=== PATIENT | female | born 1935 ===

== ENCOUNTER 2017-03-17 16:26 | Inpatient (IN) | payer MEDICAID, OTHER ==
[2017-03-17 17:23] LABS: BASO % 0.3 % (0.0-2.0); EOS # 0.2 K/uL (0.0-0.7); EOS % 2.1 % (0.0-4.0); LYMPH # 2.1 K/uL (1.0-4.3); LYMPH % 24.1 % (20.0-40.0); MEAN CELL VOLUME 77.7 fL (81.0-99.0); MEAN CORPUSCULAR HEMOGLOBIN 25.1 pg (27.0-31.0); MEAN CORPUSCULAR HGB CONC 32.3 g/dL (33.0-37.0); MONO # 0.8 K/uL (0.0-0.8); MONO % 9.4 % (0.0-10.0); NRBC % 0.1 % (0.0-2.0); RED CELL DISTRIBUTION WIDTH 14.5 % (11.5-14.5); WHITE BLOOD COUNT 8.7 K/uL (4.8-10.8)
[2017-03-17 17:30] LABS: CHLORIDE 98 mmol/L (98-107)
[2017-03-17 17:31] LABS: POTASSIUM 4.2 mmol/L (3.6-5.2); SODIUM 138 mmol/L (132-148)
[2017-03-17 17:34] LABS: ALKALINE PHOSPHATASE 77 U/L (38-126); ALT/SGPT 27 U/L (9-52); AST/SGOT 21 U/L (14-36); BILIRUBIN,TOTAL 0.5 mg/dL (0.2-1.3); BLOOD UREA NITROGEN 17 mg/dL (7-17); CARBON DIOXIDE 25 mmol/L (22-30); GFR AFRICAN-AMERICAN > 60; GLUCOSE,RANDOM 118 mg/dL (65-105); TOTAL PROTEIN 7.9 g/dL (6.3-8.3)
[2017-03-17 17:35] LABS: CALCIUM 9.1 mg/dl (8.6-10.4)
--- NOTE | 2017-03-17 17:41 | C.PDOC ---
History Of Present Illness 81 year old female presents to the ED at the request of Dr. Mendez Nick for evaluation of right leg swelling and redness . Patient states swelling to the leg began 5 months ago and has been worsening, particularly in the last 5 days. She also notes subjective fever but denies SOB, chest pain, history of blood clots, or other medical problems. PT was taking Keflex and Augmentin for cellulits and states redness has been worsening. 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 denies: Itching, Draining Recent travel outside of the [place]: No Past Medical History Reviewed: Historical Data, Nursing Documentation, Vital Signs Vital Signs: Last Vital Signs Temp 98.1 F 03/17/17 16:34 Pulse 68 03/17/17 16:34 Resp 16 03/17/17 16:34 BP 121/73 03/17/17 16:34 Pulse Ox 99 03/17/17 17:54 Family History: States: Unknown Family Hx - Social History Hx Alcohol Use: No Hx Substance Use: No Review Of Systems Constitutional: Negative for: Fever, Chills Cardiovascular: Negative for: Chest Pain Respiratory: Negative for: Shortness of Breath Gastrointestinal: Negative for: Nausea, Vomiting, Abdominal Pain, Diarrhea Musculoskeletal: Positive for: Leg Pain (swelling of the right ankle to below the knee ) Physical Exam - Physical Exam Appears: Non-toxic, No Acute Distress Skin: Warm, Dry, Other (1cm bullous to lateral aspect of right ankle ) Head: Atraumatic, Normacephalic Eye(s): bilateral: Normal Inspection, PERRL, EOMI Nose: Normal Oral Mucosa: Moist Neck: Normal ROM, Supple Chest: Symmetrical, No Deformity Cardiovascular: Rhythm Regular Respiratory: Normal Breath Sounds, No Rhonchi, No Wheezing Gastrointestinal/Abdominal: Soft, No Tenderness, No Distention, No Guarding, No Rebound Extremity: Normal ROM, Tenderness, Calf Tenderness, Swelling (and erythema of the right foot to just below the knee ), Other (Chronic venous stasis ) Pulses: Left Dorsalis Pedis: Normal, Right Dorsalis Pedis: Normal Neurological/Psych: Oriented x3, Normal Speech, Normal Cognition, Normal Motor, Normal Sensation Gait: With Assistance (using a cane due to difficulty walking of right ankle tenderness and swelling) ED Course And Treatment - Laboratory Results Result Diagrams: 03/17/17 17:15 03/17/17 17:15 O2 Sat by Pulse Oximetry: 99 (room air ) Progress Note: Case discussed with Dr Neil, agreed upon plan and admission. Disposition - Disposition Disposition: HOSPITALIZED Disposition Time: 19:04 Condition: STABLE - Clinical Impression Clinical Impression: Cellulitis, Pedal edema, Leg swelling - Scribe Statement The provider has reviewed the documentation as recorded by the Scribe Tere Madrid All medical record entries made by the Scribe were at my direction and personally dictated by me. I have reviewed the chart and agree that the record accurately reflects my personal performance of the history, physical exam, medical decision making, and the department course for this patient. I have also personally directed, reviewed, and agree with the discharge instructions and disposition.
[2017-03-17] MEDS ORDERED: Enoxaparin 60 mg Syringe SC STA (17:51)
[2017-03-17] MEDS ORDERED: Clindamycin 600mg/50ml NS 600 MG/50 ML BAG IVPB ONE (18:00)
[2017-03-17] MEDS ORDERED: Enoxaparin 80 mg Syringe ONE (18:26)
[2017-03-17 18:32] LABS: URINE BILIRUBIN NEGATIVE (NEGATIVE); URINE BLOOD 1+ (NEGATIVE); URINE COLOR Colorless (YELLOW); URINE GLUCOSE (UA) NORMAL (Normal); URINE KETONE NEGATIVE (NEGATIVE); URINE LEUKOCYTE ESTERASE NEG Leu/uL (Negative); URINE PROTEIN NEGATIVE (NEGATIVE); URINE UROBILINOGEN NORMAL mg/dL (0.2-1.0); WBC URINE < 1 /hpf (0-5)
[2017-03-17 18:47] LABS: RBC URINE 4 /hpf (0-3)
--- NOTE | 2017-03-17 21:57 | CP.PCM.HP ---
<Bebo Daugherty - Last Filed: 03/17/17 22:14> History of Present Illness - History of Present Illness History of Present Illness: PGY-[address] Lewis HPI: 81 y/o F presents to the ER with a 3 weeks history of R. leg pain for 3 week duration. Nothing makes the pain better. Walking makes the pain worse. She describes the pain as throbbing in nature. It radiates up the leg to the mid thigh. At its worst she rates the pain as a 10/10 in severity. The pain has been constant since it began. It is associated with a fever yesterday. She also states that her urine output has been more frequent lately. She denies cough, N/ V, constipation, diarrhea, cough, diaphoresis, hemoptysis, weakness, dizziness, visual changes, changes in her speech, confusion, TAVERA, CP, abdominal pain, rash or blood in her urine. She denies sick contacts. She recently took a trip to [place], [place]. Patient is visiting from [facility]. PMH: None PSH: None FH: * Mom, , no medical history * Dad, , no medical history * Siblings, DM, Varicose vv SH: denies smoking/drinking, , lives with nephew in [facility] Meds: Augmentin, Mupirocen 2% Allergies: NKA Present on Admission - Present on Admission Any Indicators Present on Admission: No History of DVT/PE: No History of Uncontrolled Diabetes: No Urinary Catheter: No Decubitus Ulcer Present: No History Surgical Site Infection Following: None Review of Systems - Constitutional Constitutional: As Per HPI - EENT Eyes: As Per HPI Ears: As Per HPI Nose/Mouth/Throat: As Per HPI - Breasts Breasts: As Per HPI - Cardiovascular Cardiovascular: As Per HPI - Respiratory Respiratory: As Per HPI - Gastrointestinal Gastrointestinal: As Per HPI - Genitourinary Genitourinary: As Per HPI - Reproductive: Female Reproductive:Female: As Per HPI - Menstruation Menstruation: As Per HPI - Musculoskeletal Musculoskeletal: As Per HPI - Integumentary Integumentary: As Per HPI - Neurological Neurological: As Per HPI - Psychiatric Psychiatric: As Per HPI - Endocrine Endocrine: As Per HPI - Hematologic/Lymphatic Hematologic: As Per HPI Past Patient History - Tetanus Immunizations Tetanus Immunization: Unknown - Past Medical History & Family History Past Medical History?: No - Past Social History Smoking Status: Never Smoked Chewing Tobacco Use: No Cigar Use: No Alcohol: None Drugs: Denies Home Situation {Lives}: With Family - PSYCHIATRIC Hx Substance Use: No - SURGICAL HISTORY Hx Surgeries: No Meds Allergies/Adverse Reactions: Allergies Allergy/AdvReac Type Severity Reaction Status Date / Time No Known Allergies Allergy Verified 03/17/17 16:30 Physical Exam - Constitutional Appears: Well, Non-toxic, No Acute Distress - Head Exam Head Exam: ATRAUMATIC, NORMAL INSPECTION, NORMOCEPHALIC - Eye Exam Eye Exam: EOMI, Normal appearance. absent: Conjunctival injection, Nystagmus, Periorbital swelling, Periorbital tenderness - ENT Exam ENT Exam: Mucous Membranes Moist - Respiratory Exam Respiratory Exam: Clear to Auscultation Bilateral, NORMAL BREATHING PATTERN. absent: Rales, Rhonchi, Wheezes, Stridor - Cardiovascular Exam Cardiovascular Exam: REGULAR RHYTHM, RRR. absent: Bradycardia, Tachycardia, Gallop, JVD, Systolic Murmur - GI/Abdominal Exam GI & Abdominal Exam: Normal Bowel Sounds, Soft. absent: Distended, Firm, Guarding, Organomegaly, Tenderness - Extremities Exam Additional comments: b/l chronic venous changes. R. leg red/indurated/warm extending to the R. knee and wrapping around the leg. 2-3cm area of fluctuance on lateral aspect proximal to the ankle. - Neurological Exam Neurological exam: Alert, Oriented x3 - Psychiatric Exam Psychiatric exam: Normal Affect, Normal Mood - Skin Additional comments: chronic venous changes on b/l lower extremities Results - Vital Signs Recent Vital Signs: Last Vital Signs Temp 98 F 03/17/17 20:58 Pulse 73 03/17/17 20:58 Resp 20 03/17/17 20:58 BP 116/65 03/17/17 20:58 Pulse Ox 98 03/17/17 20:58 - Labs Result Diagrams: 03/17/17 17:15 03/17/17 17:15 Labs: Laboratory Results - last 24 hr 03/17/17 18:23 Urine Color Colorless Urine Clarity Clear Urine pH 7.0 Ur Specific [place] 1.001 L Urine Protein Negative Urine Glucose (UA) Normal Urine Ketones Negative Urine Blood 1+ H Urine Nitrate Negative Urine Bilirubin Negative Urine Urobilinogen Normal Ur Leukocyte Esterase Neg Urine WBC (Auto) < 1 Urine RBC (Auto) 4 H Ur Squamous Epith Cells 1 Assessment & Plan - Assessment and Plan (Free Text) Assessment: 1. LE Cellulitis with abscess * 2-3 cm superficial abscess on lateral aspect of R. LE * Needle aspiration of lesion was done at bedside * Fluid cultured - F/U * Surrounding area of cellulites extending to the knee * Clinda 300mg IV Q6 2. Leg Pain * Lower extremity venous doppler to R/O DVT - F/U * Lovenox 70mg SC administered in the ER 3. PPX * Pepcid 20mg PO QD * Ambulate - Date & Time Date: 03/17/17 Time: 22:31 Decision To Admit - Pt Status Changed To: Hospital Disposition Of: Inpatient - Admit Certification Admit to Inpatient:: After my assessment, the patient will require hospitalization for at least two midnights. This is because of the severity of symptoms shown, intensity of services needed, and/or the medical risk in this patient being treated as an outpatient. - InPatient: Physician Admission Certification:: . - . Bed Request Type: Regular Admitting Physician: Eugene Lewis <Eugene Lewis - Last Filed: 03/18/17 06:40> Results - Vital Signs Recent Vital Signs: Last Vital Signs Temp 98 F 03/18/17 00:00 Pulse 75 03/18/17 00:00 Resp 20 03/18/17 00:00 BP 112/59 L 03/18/17 00:00 Pulse Ox 98 03/18/17 00:00 - Labs Result Diagrams: 03/17/17 17:15 03/17/17 17:15 Labs: Laboratory Results - last 24 hr 03/17/17 18:23 Urine Color Colorless Urine Clarity Clear Urine pH 7.0 Ur Specific [place] 1.001 L Urine Protein Negative Urine Glucose (UA) Normal Urine Ketones Negative Urine Blood 1+ H Urine Nitrate Negative Urine Bilirubin Negative Urine Urobilinogen Normal Ur Leukocyte Esterase Neg Urine WBC (Auto) < 1 Urine RBC (Auto) 4 H Ur Squamous Epith Cells 1 Attending/Attestation - Attestation I have personally seen and examined this patient.: Yes I have fully participated in the care of the patient.: Yes I have reviewed all pertinent clinical information: Yes Notes (Text): Assessment * Right leg cellulitis with blister containing puss, needle aspiration done at the bed side sent for culture/gram stain * Venous stasis dermatitis Plan * Clindamycin iv as failed out patient Keflex and Augmentin * F/u culture * Empiric therapeutic dose of lovenox given in ER venous doppler today * See orders for detail.
[2017-03-17] MEDS: Clindamycin 300 MG in Sodium Chloride 0.9% 50 ML IVPB SCH (22:37)
[2017-03-18] MEDS: Clindamycin 300 MG in Sodium Chloride 0.9% 50 ML IVPB SCH (05:38)
[2017-03-18] MEDS ORDERED: Morphine 4 MG/ML VIAL IVP STA (09:01)
[2017-03-18] MEDS: Enoxaparin 40 mg Syringe SC SCH (09:09)
[2017-03-18] MEDS ORDERED: cefTRIAXone IV 1 gm in Dextros 50 ML IVPB SCH (10:00)
[2017-03-18 11:57] LABS: BASO % 0.5 % (0.0-2.0); EOS # 0.1 K/uL (0.0-0.7); EOS % 1.7 % (0.0-4.0); HEMATOCRIT 34.1 % (34.0-47.0); LYMPH # 1.7 K/uL (1.0-4.3); LYMPH % 21.6 % (20.0-40.0); MEAN CELL VOLUME 77.6 fL (81.0-99.0); MEAN CORPUSCULAR HGB CONC 32.2 g/dL (33.0-37.0); MEAN PLATELET VOLUME 8.7 fL (7.2-11.7); MONO # 0.6 K/uL (0.0-0.8); MONO % 7.9 % (0.0-10.0); RED CELL DISTRIBUTION WIDTH 14.8 % (11.5-14.5)
[2017-03-18] MEDS ORDERED: Morphine 4 MG/ML VIAL IVP PRN (12:00)
[2017-03-18 12:09] LABS: CHLORIDE 100 mmol/L (98-107); POTASSIUM 4.3 mmol/L (3.6-5.2); SODIUM 140 mmol/L (132-148)
[2017-03-18 12:11] LABS: ALB/GLOB RATIO 0.9 (1.0-2.1); AST/SGOT 18 U/L (14-36); BILIRUBIN,TOTAL 0.5 mg/dL (0.2-1.3); CARBON DIOXIDE 28 mmol/L (22-30); GFR AFRICAN-AMERICAN > 60; TOTAL PROTEIN 7.6 g/dL (6.3-8.3)
[2017-03-18 12:12] LABS: ALKALINE PHOSPHATASE 88 U/L (38-126); ALT/SGPT 23 U/L (9-52); BLOOD UREA NITROGEN 19 mg/dL (7-17); CALCIUM 8.6 mg/dl (8.6-10.4); GLUCOSE,RANDOM 117 mg/dL (65-105); MAGNESIUM 2.1 mg/dL (1.6-2.3); PHOSPHOROUS 4.1 mg/dL (2.5-4.5)
--- NOTE | 2017-03-18 14:31 | CP.PCM.PN ---
<KmPamela - Last Filed: 03/18/17 18:18> Subjective - Date & Time of Evaluation Date of Evaluation: 03/18/17 Time of Evaluation: 07:35 - Subjective Subjective: PGY2 medicine note for Dr. Neil: Patient seen and examined at bedside this morning. She appeared to be in distress and was crying in pain. She stated that after the needle aspiration her leg was in extreme pain. She denied headache, changes in vision, fever/ chills, chest pain, SOB, abd pain, N/V, D/C. She did not want to answer many questions because he pain was so bad. She was given a stat dose of Morphine and appeared to be comfortable after the medication. On rounds she appeared much more comfortable was was well appearing talking with her family at bedside. She report that this ulcer has been there for three weeks associated with a pinching pain. She states she moight have had a fever 2 days ago otherwise has no complaints. Objective - Vital Signs/Intake and Output Vital Signs (last 24 hours): Temp Pulse Resp BP Pulse Ox 97.9 F 65 20 110/69 98 03/18/17 07:57 03/18/17 07:57 03/18/17 07:57 03/18/17 07:57 03/18/17 07:57 - Medications Medications: Current Medications Aspirin (Aspirin Chewable) 81 mg PO DAILY [facility] Enoxaparin Sodium (Lovenox) 40 mg SC DAILY [facility] Last Admin: 03/18/17 09:09 Dose: 40 mg Famotidine (Pepcid) 20 mg PO DAILY [facility] Last Admin: 03/18/17 09:09 Dose: 20 mg Ceftriaxone Sodium (Rocephin Iv 1 Gm Duplex) 50 mls @ 100 mls/hr IVPB Q24H [facility] Last Admin: 03/18/17 11:11 Dose: 100 mls/hr Doxycycline Hyclate 100 mg/ (Sodium Chloride) 100 mls @ 100 mls/hr IVPB Q12H [facility] Last Admin: 03/18/17 11:12 Dose: 100 mls/hr Piperacillin Sod/Tazobactam (Sod 3.375 gm/ Sodium Chloride) 100 mls @ 200 mls/ hr IVPB Q6H [facility] Morphine Sulfate (Morphine) 2 mg IVP Q4 PRN PRN Reason: Pain, moderate (4-7) Pneumococcal Polyvalent Vaccine (Pneumovax 23 Vaccine) 0.5 ml IM .ONCE ONE Stop: 03/19/17 10:01 - Labs Labs: 03/18/17 11:53 03/18/17 11:53 - Constitutional Appears: Non-toxic, No Acute Distress - Head Exam Head Exam: ATRAUMATIC, NORMAL INSPECTION - Eye Exam Eye Exam: EOMI, Normal appearance, PERRL Pupil Exam: NORMAL ACCOMODATION - ENT Exam ENT Exam: Mucous Membranes Moist - Respiratory Exam Respiratory Exam: Clear to Ausculation Bilateral, NORMAL BREATHING PATTERN. absent: Rales, Rhonchi, Wheezes, Respiratory Distress - Cardiovascular Exam Cardiovascular Exam: REGULAR RHYTHM, +S1, +S2 - GI/Abdominal Exam GI & Abdominal Exam: Soft, Normal Bowel Sounds. absent: Distended, Firm, Guarding, Tenderness - Extremities Exam Additional comments: 1 cm ulcer above R lateral mall, draining purulent material, ext warm, pulses palpable, venous stasis skin changes, sensation in tact, ROM normal - Back Exam Back Exam: NORMAL INSPECTION. absent: CVA tenderness (L), CVA tenderness (R), paraspinal tenderness - Neurological Exam Neurological Exam: Alert, Awake, CN II-XII Intact, Normal Gait, Oriented x3 - Psychiatric Exam Psychiatric exam: Anxious, Normal Affect, Normal Mood - Skin Skin Exam: Dry, Intact, Normal Color, Warm Assessment and Plan - Assessment and Plan (Free Text) Assessment: 81 year old female with no past medical history admitted on 03/17 for non healing R leg ulcer which failed outpatient antibiotic therapy: Plan: LE Cellulitis with ulceration * 2-3 cm superficial abscess on lateral aspect of R. LE * Needle aspiration of lesion was done at bedside * Fluid cultured - prelim: gram negative rods - f/u sensitivity * Zosyn 3.375 mg IVPB Q6 * Aspiring 81 mg PO daily * f/u X ray to rule out osteomyelitis * f/u arterial dopplers * Morphine 2mg IVP Q4 prn * f/u am labs * Afebrile, no WBC * Dr. Martins, vascular surgery consulted, help appreciated Elevated DDIMER * No clinical signs of PE (no SOB, not tachycardic) * Doppler shows close of vein of gastroenemusi f/u official report - superficial vein * Lovenox 70mg SC administered in the ER PPX * Lovenox 40mg SC daily * Pepcid 20mg PO QD <RobertoGeorge morales - Last Filed: 05/01/17 15:48> Objective - Vital Signs/Intake and Output Vital Signs (last 24 hours): Temp Pulse Resp BP Pulse Ox 98.4 F 67 20 94/56 L 96 03/30/17 07:46 03/30/17 07:46 03/30/17 07:46 03/30/17 07:46 03/30/17 07:46 - Labs Labs: 03/30/17 06:51 03/30/17 06:50 PT 12.7 SECONDS (9.7-12.2) H 03/27/17 06:16 INR 1.1 03/27/17 06:16 APTT 39 SECONDS (21-34) H 03/27/17 06:16 Attending/Attestation - Attestation I have personally seen and examined this patient.: Yes I have fully participated in the care of the patient.: Yes I have reviewed all pertinent clinical information, including history, physical exam and plan: Yes Notes (Text): LE Cellulitis with ulceration Elevated DDIMER
[2017-03-18] MEDS: Piperacillin/Tazobact 3.375 GM in Sodium Chloride 100 ML IVPB SCH ×2 (15:30→21:20)
--- NOTE | 2017-03-18 17:37 | CP.PCM.CON ---
History of Present Illness - History of Present Illness History of Present Illness: VASCULAR SURGERY CONSULT NOTE FOR DR. ROMERO 81yo F with no significant PMHx presented to the ED with right leg pain and swelling. She reports that she has had intermittent leg swelling and pain for a long time. The swelling worsened about 15 days ago and the pain worsened 5 days ago. The symptoms are only on the right leg. She states that she hasn't been able to sleep at all over the past 2 days due to the pain. She reports a "burning" sensation in her leg and sometimes has a "tingling" sensation. She reports that the swelling and pain occur more with walking and are relieved with rest. She uses a cane to walk. As an outpatient, she was given prescriptions for Keflex, Augmentin, and Ibuprofen for her cellulitis a couple days prior to coming to the ED but she states the symptoms did not improve. The primary team did needle aspiration of 2-3cm superficial abscess at bedside yesterday and took cultures. Patient reports pain at the needle aspiration site. X ray showed diffuse soft tissue swelling throughout soft tissues of right calf which may represent underlying cellulitis and ulceration and/or soft tissue swelling at lateral malleolus of right ankle. PMHx: osteoporosis Surgeries: none Allergies: none Social history: denies tobacco or etoh use, visiting from [facility] Review of Systems - Review of Systems All systems: reviewed and no additional remarkable complaints except (as per HPI ) Past Patient History - Tetanus Immunizations Tetanus Immunization: Unknown - Past Medical History & Family History Past Medical History?: No - Past Social History Smoking Status: Never Smoked - MUSCULOSKELETAL/RHEUMATOLOGICAL Hx Falls: No - PSYCHIATRIC Hx Substance Use: No - SURGICAL HISTORY Hx Surgeries: No Meds Allergies/Adverse Reactions: Allergies Allergy/AdvReac Type Severity Reaction Status Date / Time No Known Allergies Allergy Verified 03/17/17 16:30 - Medications Medications: Current Medications Aspirin (Aspirin Chewable) 81 mg PO DAILY [facility] Enoxaparin Sodium (Lovenox) 40 mg SC DAILY [facility] Last Admin: 03/18/17 09:09 Dose: 40 mg Famotidine (Pepcid) 20 mg PO DAILY [facility] Last Admin: 03/18/17 09:09 Dose: 20 mg Ceftriaxone Sodium (Rocephin Iv 1 Gm Duplex) 50 mls @ 100 mls/hr IVPB Q24H [facility] Last Admin: 03/18/17 11:11 Dose: 100 mls/hr Doxycycline Hyclate 100 mg/ (Sodium Chloride) 100 mls @ 100 mls/hr IVPB Q12H [facility] Last Admin: 03/18/17 11:12 Dose: 100 mls/hr Piperacillin Sod/Tazobactam (Sod 3.375 gm/ Sodium Chloride) 100 mls @ 200 mls/ hr IVPB Q6H [facility] Last Admin: 03/18/17 15:30 Dose: 200 mls/hr Morphine Sulfate (Morphine) 2 mg IVP Q4 PRN PRN Reason: Pain, moderate (4-7) Pneumococcal Polyvalent Vaccine (Pneumovax 23 Vaccine) 0.5 ml IM .ONCE ONE Stop: 03/19/17 10:01 Physical Exam - Constitutional Appears: Non-toxic, No Acute Distress - Head Exam Head Exam: ATRAUMATIC, NORMAL INSPECTION - Eye Exam Eye Exam: EOMI, Normal appearance - Respiratory Exam Respiratory Exam: NORMAL BREATHING PATTERN. absent: Respiratory Distress - Cardiovascular Exam Cardiovascular Exam: +S1, +S2 - Extremities Exam Extremities exam: Positive for: full ROM, tenderness, pedal pulses present. Negative for: normal inspection Additional comments: 1x2cm abscess s/p needle aspiration yesterday - small amount purulent material expressed +1 pitting edema bilaterally tenderness in bilateral calves bilateral chronic venous stasis changes Right leg: indurated, warm, erythematous + strong palpable dorsalis pedis pulse bilaterally - Neurological Exam Neurological exam: Alert, CN II-XII Intact, Oriented x3 - Psychiatric Exam Psychiatric exam: Normal Affect, Normal Mood - Skin Skin Exam: Dry, Warm Results - Vital Signs Recent Vital Signs: Last Vital Signs Temp 98.6 F 03/18/17 15:00 Pulse 70 03/18/17 15:00 Resp 20 03/18/17 15:00 BP 105/65 03/18/17 15:00 Pulse Ox 97 03/18/17 15:00 - Labs Result Diagrams: 03/18/17 11:53 03/18/17 11:53 Labs: Laboratory Results - last 24 hr 03/17/17 03/18/17 03/18/17 18:23 11:53 11:53 WBC 8.0 RBC 4.40 Hgb 11.0 Hct 34.1 MCV 77.6 L MCH 25.0 L MCHC 32.2 L RDW 14.8 H Plt Count 294 MPV 8.7 Neut % (Auto) 68.3 Lymph % (Auto) 21.6 [place] % (Auto) 7.9 Eos % (Auto) 1.7 Baso % (Auto) 0.5 Neut # 5.5 Lymph # 1.7 [place] # 0.6 Eos # 0.1 Baso # 0.0 Sodium 140 Potassium 4.3 Chloride 100 Carbon Dioxide 28 Anion Gap 16 BUN 19 H Creatinine 0.8 Est GFR ( Amer) > 60 Est GFR (Non-Af Amer) > 60 Random Glucose 117 H Calcium 8.6 Phosphorus 4.1 Magnesium 2.1 Total Bilirubin 0.5 AST 18 ALT 23 Alkaline Phosphatase 88 Total Protein 7.6 Albumin 3.6 Globulin 4.1 H Albumin/Globulin Ratio 0.9 L Urine Color Colorless Urine Clarity Clear Urine pH 7.0 Ur Specific [place] 1.001 L Urine Protein Negative Urine Glucose (UA) Normal Urine Ketones Negative Urine Blood 1+ H Urine Nitrate Negative Urine Bilirubin Negative Urine Urobilinogen Normal Ur Leukocyte Esterase Neg Urine WBC (Auto) < 1 Urine RBC (Auto) 4 H Ur Squamous Epith Cells 1 Assessment & Plan - Assessment and Plan (Free Text) Assessment: 81yo F with no significant PMHx presented with right leg pain and swelling and has Right LE cellulitis with abscess, rule out DVT, PVD - Cultures from needle aspiration yesterday = gram - rods - LE venous doppler done to rule out DVT - On Zosyn - Changed dressing - Palpable dorsalis pedis pulses bilaterally - CTA ordered to evaluate for PVD - Discussed plan with Dr. Lakshmi Brewster PGY-3
--- NOTE | 2017-03-18 17:40 | RAD ---
Bilateral ankles four views History: Ulcer lateral malleolus right ankle. Evaluate for osteomyelitis. Findings: Right ankle: Ulceration and/or soft tissue swelling seen at the lateral malleolus of the right ankle. No evidence of cortical irregularity of the adjacent lateral distal fibula to suggest acute osteomyelitis. If there is concern for acute osteomyelitis at this level, correlation with MRI is recommended for further evaluation. Mild narrowing of the tibiotalar joint space. Minimal plantar calcaneal spurring. Degenerative changes with productive change at the dorsal aspect of the midfoot. Suggestion of a prominent hallux valgus deformity. Left ankle: No evidence of acute displaced fracture dislocation. Suggestion of a prominent hallux valgus deformity. Plantar calcaneal spurring. Narrowing of the tibiotalar joint space. Productive change noted at the dorsal aspect of the midfoot. Impression: Right ankle: Ulceration and/or soft tissue swelling seen at the lateral malleolus of the right ankle. No evidence of cortical irregularity of the adjacent lateral distal fibula to suggest acute osteomyelitis. If there is concern for acute osteomyelitis at this level, correlation with MRI is recommended for further evaluation. Mild narrowing of the tibiotalar joint space. Minimal plantar calcaneal spurring. Degenerative changes with productive change at the dorsal aspect of the midfoot. Suggestion of a prominent hallux valgus deformity. Left ankle: No evidence of acute displaced fracture dislocation. Suggestion of a prominent hallux valgus deformity. Plantar calcaneal spurring. Narrowing of the tibiotalar joint space. Productive change noted at the dorsal aspect of the midfoot.
--- NOTE | 2017-03-18 17:45 | RAD ---
Right tibia and fibula two views History: Ulceration lateral malleolus right ankle. Cellulitis. Comparison: None available. Findings: Diffuse soft tissue swelling seen throughout the soft tissues of the right calf which may represent an underlying cellulitis. Narrowing at the lateral compartment of the femorotibial joint space. Ulceration and/or soft tissue swelling seen at the lateral malleolus of the right ankle. No evidence of cortical irregularity of the adjacent lateral distal fibula to suggest acute osteomyelitis. If there is concern for acute osteomyelitis at this level, correlation with MRI is recommended for further evaluation. Mild narrowing of the tibiotalar joint space. Minimal plantar calcaneal spurring. Degenerative changes with productive change at the dorsal aspect of the midfoot. Impression: Diffuse soft tissue swelling seen throughout the soft tissues of the right calf which may represent an underlying cellulitis. Narrowing at the lateral compartment of the femorotibial joint space. Ulceration and/or soft tissue swelling seen at the lateral malleolus of the right ankle. No evidence of cortical irregularity of the adjacent lateral distal fibula to suggest acute osteomyelitis. If there is concern for acute osteomyelitis at this level, correlation with MRI is recommended for further evaluation. Mild narrowing of the tibiotalar joint space. Minimal plantar calcaneal spurring. Degenerative changes with productive change at the dorsal aspect of the midfoot.
[2017-03-19] MEDS: Piperacillin/Tazobact 3.375 GM in Sodium Chloride 100 ML IVPB SCH ×2 (02:20→08:11)
[2017-03-19] MEDS ORDERED: Iodixanol 320 mg/ml 150 ml Bottle IV ONE (07:31)
--- NOTE | 2017-03-19 07:32 | CP.PCM.PN ---
Addendum entered and electronically signed by Pamela Barbour DO 03/19/17 14:14: Patient lost IV access. WIll attempt again and have patient do CT when IV access established. Patient requesting to wait a couple hours before another attempt to establish access. Original Note: <Pamela Barbour - Last Filed: 03/19/17 13:58> Subjective - Date & Time of Evaluation Date of Evaluation: 03/19/17 Time of Evaluation: 07:05 - Subjective Subjective: PGY2 medicine note for Dr. Mejia: Patient seen and examined at bedside this morning. She stated her pain in the leg was controlled with medications and she appeared to be a lot more comfortable than yesterday. She was sitting up in bed eating breakfast. She had no new complaints today. She denied headache, changes in vision, fever/ chills, chest pain, SOB, abd pain, N/V, D/C. Objective - Vital Signs/Intake and Output Vital Signs (last 24 hours): Temp Pulse Resp BP Pulse Ox 98.2 F 67 20 119/79 96 03/19/17 00:00 03/19/17 00:00 03/19/17 00:00 03/19/17 00:00 03/19/17 00:00 Intake and Output: 03/19/17 03/19/17 06:59 18:59 Intake Total 350 Balance 350 - Medications Medications: Current Medications Aspirin (Aspirin Chewable) 81 mg PO DAILY [facility] Enoxaparin Sodium (Lovenox) 40 mg SC DAILY [facility] Last Admin: 03/18/17 09:09 Dose: 40 mg Famotidine (Pepcid) 20 mg PO DAILY [facility] Last Admin: 03/18/17 09:09 Dose: 20 mg Piperacillin Sod/Tazobactam (Sod 3.375 gm/ Sodium Chloride) 100 mls @ 200 mls/ hr IVPB Q6H [facility] Last Admin: 03/19/17 02:20 Dose: 200 mls/hr Morphine Sulfate (Morphine) 2 mg IVP Q4 PRN PRN Reason: Pain, moderate (4-7) Last Admin: 03/18/17 19:52 Dose: 2 mg Pneumococcal Polyvalent Vaccine (Pneumovax 23 Vaccine) 0.5 ml IM .ONCE ONE Stop: 03/19/17 10:01 - Labs Labs: 03/18/17 11:53 03/18/17 11:53 - Constitutional Appears: Non-toxic, No Acute Distress - Head Exam Head Exam: ATRAUMATIC, NORMAL INSPECTION - Eye Exam Eye Exam: EOMI, PERRL Pupil Exam: NORMAL ACCOMODATION - ENT Exam ENT Exam: Mucous Membranes Moist - Respiratory Exam Respiratory Exam: Clear to Ausculation Bilateral, NORMAL BREATHING PATTERN. absent: Rales, Rhonchi, Wheezes, Respiratory Distress - Cardiovascular Exam Cardiovascular Exam: REGULAR RHYTHM. absent: +S1, +S2 - GI/Abdominal Exam GI & Abdominal Exam: Soft, Normal Bowel Sounds. absent: Distended, Firm, Guarding, Tenderness - Extremities Exam Additional comments: 1x2cm abscess s/p needle aspiration 2 days ago - very small amount purulent material expressed (dressing changed) +1 pitting edema bilaterally bilateral chronic venous stasis changes Right leg: indurated, warm, erythematous + strong palpable dorsalis pedis pulse bilaterally, sensation and ROM intact - Back Exam Back Exam: NORMAL INSPECTION. absent: CVA tenderness (L), CVA tenderness (R), paraspinal tenderness - Neurological Exam Neurological Exam: Alert, Awake, CN II-XII Intact, Oriented x3 - Psychiatric Exam Psychiatric exam: Normal Affect, Normal Mood - Skin Skin Exam: Dry, Intact, Normal Color, Warm Assessment and Plan - Assessment and Plan (Free Text) Assessment: 81 year old female with no past medical history admitted on 03/17 for non healing R leg ulcer which failed outpatient antibiotic therapy: Plan: LE Cellulitis with ulceration * 2-3 cm superficial abscess on lateral aspect of R. LE * Needle aspiration of lesion was done at bedside * Wound culture: Serratia Marcescens * Will start Cipro due to culture sensitivity and CATIE value * Zosyn 3.375 mg IVPB Q6 - discontinued 03/19 * Start Cipro 400mg IVPB Q12 hours (started 8 PM) * Aspirin 81 mg PO daily * f/u X ray to rule out osteomyelitis - X ray showed diffuse soft tissue swelling throughout soft tissues of right calf which may represent underlying cellulitis and ulceration and/or soft tissue swelling at lateral malleolus of right ankle. * f/u arterial dopplers * Morphine 2mg IVP Q4 prn * Afebrile, no WBC * Dr. Martins, vascular surgery consulted, help appreciated - f/u CTA * f/u HBA1c, am labs Elevated DDIMER * No clinical signs of PE (no SOB, not tachycardic) * Doppler shows closure of vein of gastronemius with echolucent thrombus- superficial vein * Lovenox 70mg SC administered in the ER PPX * Lovenox 40mg SC daily * Pepcid 20mg PO QD * Regular diet <George Mejia - Last Filed: 05/01/17 15:49> Objective - Vital Signs/Intake and Output Vital Signs (last 24 hours): Temp Pulse Resp BP Pulse Ox 98.4 F 67 20 94/56 L 96 03/30/17 07:46 03/30/17 07:46 03/30/17 07:46 03/30/17 07:46 03/30/17 07:46 - Labs Labs: 03/30/17 06:51 03/30/17 06:50 PT 12.7 SECONDS (9.7-12.2) H 03/27/17 06:16 INR 1.1 03/27/17 06:16 APTT 39 SECONDS (21-34) H 03/27/17 06:16 Attending/Attestation - Attestation I have personally seen and examined this patient.: Yes I have fully participated in the care of the patient.: Yes I have reviewed all pertinent clinical information, including history, physical exam and plan: Yes Notes (Text): LE Cellulitis with ulceration Elevated DDIMER
[2017-03-19 08:25] LABS: BASO % 0.6 % (0.0-2.0); EOS # 0.2 K/uL (0.0-0.7); EOS % 2.8 % (0.0-4.0); HEMATOCRIT 34.7 % (34.0-47.0); LYMPH # 2.2 K/uL (1.0-4.3); LYMPH % 28.8 % (20.0-40.0); MEAN CORPUSCULAR HEMOGLOBIN 25.3 pg (27.0-31.0); MEAN CORPUSCULAR HGB CONC 32.4 g/dL (33.0-37.0); MEAN PLATELET VOLUME 8.2 fL (7.2-11.7); MONO # 0.8 K/uL (0.0-0.8); MONO % 10.2 % (0.0-10.0); RED CELL DISTRIBUTION WIDTH 14.5 % (11.5-14.5); WHITE BLOOD COUNT 7.6 K/uL (4.8-10.8)
[2017-03-19 08:31] LABS: CHLORIDE 100 mmol/L (98-107)
[2017-03-19 08:32] LABS: POTASSIUM 4.4 mmol/L (3.6-5.2); SODIUM 141 mmol/L (132-148)
[2017-03-19 08:33] LABS: ALB/GLOB RATIO 0.9 (1.0-2.1); ALKALINE PHOSPHATASE 77 U/L (38-126); ALT/SGPT 21 U/L (9-52); AST/SGOT 20 U/L (14-36); BILIRUBIN,TOTAL 0.5 mg/dL (0.2-1.3); BLOOD UREA NITROGEN 16 mg/dL (7-17); CALCIUM 8.8 mg/dl (8.6-10.4); CARBON DIOXIDE 25 mmol/L (22-30); GFR AFRICAN-AMERICAN > 60; GLUCOSE,RANDOM 105 mg/dL (65-105); MAGNESIUM 2.1 mg/dL (1.6-2.3); PHOSPHOROUS 4.5 mg/dL (2.5-4.5); TOTAL PROTEIN 7.6 g/dL (6.3-8.3)
--- NOTE | 2017-03-19 09:09 | CP.PCM.PN ---
Subjective - Date & Time of Evaluation Date of Evaluation: 03/19/17 Time of Evaluation: 07:00 - Subjective Subjective: VASCULAR SURGERY PROGRESS NOTE FOR DR. ROMERO Patient seen and examined at bedside. She reports pain in her right thigh and pain at the previous needle aspiration site. She describes the pain as throbbing. She is tolerating her diet and denies nausea or vomiting. Objective - Vital Signs/Intake and Output Vital Signs (last 24 hours): Temp Pulse Resp BP Pulse Ox 98.2 F 67 20 119/79 96 03/19/17 00:00 03/19/17 00:00 03/19/17 00:00 03/19/17 00:00 03/19/17 00:00 Intake and Output: 03/19/17 03/19/17 06:59 18:59 Intake Total 350 Balance 350 - Medications Medications: Current Medications Aspirin (Aspirin Chewable) 81 mg PO DAILY [facility] Enoxaparin Sodium (Lovenox) 40 mg SC DAILY [facility] Last Admin: 03/18/17 09:09 Dose: 40 mg Famotidine (Pepcid) 20 mg PO DAILY [facility] Last Admin: 03/18/17 09:09 Dose: 20 mg Piperacillin Sod/Tazobactam (Sod 3.375 gm/ Sodium Chloride) 100 mls @ 200 mls/ hr IVPB Q6H [facility] Last Admin: 03/19/17 08:11 Dose: 200 mls/hr Morphine Sulfate (Morphine) 2 mg IVP Q4 PRN PRN Reason: Pain, moderate (4-7) Last Admin: 03/18/17 19:52 Dose: 2 mg Pneumococcal Polyvalent Vaccine (Pneumovax 23 Vaccine) 0.5 ml IM .ONCE ONE Stop: 03/19/17 10:01 - Labs Labs: 03/19/17 08:05 03/19/17 08:05 - Constitutional Appears: Non-toxic, No Acute Distress - Head Exam Head Exam: ATRAUMATIC, NORMAL INSPECTION - Respiratory Exam Respiratory Exam: NORMAL BREATHING PATTERN. absent: Respiratory Distress - Cardiovascular Exam Cardiovascular Exam: +S1, +S2 - Extremities Exam Additional comments: 1x2cm abscess s/p needle aspiration 2 days ago - very small amount purulent material expressed (dressing changed) +1 pitting edema bilaterally bilateral chronic venous stasis changes Right leg: indurated, warm, erythematous + strong palpable dorsalis pedis pulse bilaterally - Neurological Exam Neurological Exam: Alert, Awake, Oriented x3 - Psychiatric Exam Psychiatric exam: Normal Affect, Normal Mood - Skin Skin Exam: Dry, Warm Assessment and Plan - Assessment and Plan (Free Text) Assessment: 81yo F with no significant PMHx presented with right leg pain and swelling and has Right LE cellulitis with abscess, rule out DVT, PVD - Cultures from needle aspiration done 2 days ago by primary team = gram - rods & serratia marcescens - On Zosyn - Changed dressing - Palpable dorsalis pedis pulses bilaterally - CTA ordered to evaluate for PVD, will follow up - Discussed plan with Dr. Lakshmi Brewster PGY-3
[2017-03-19] MEDS: Enoxaparin 40 mg Syringe SC SCH (09:57)
[2017-03-19] MEDS ORDERED: Pneumococcal 23-Valent Vaccine IM ONE (10:00)
--- NOTE | 2017-03-19 12:33 | VASCLAB ---
PROCEDURE: Lower Extremity Venous Duplex Exam. HISTORY: Leg pain PRIORS: None. TECHNIQUE: Bilateral common femoral, femoral, popliteal and posterior tibial, peroneal and great saphenous veins were evaluated. Flow was assessed with color Doppler, compressibility, assessment of phasic flow and augmentation response. Report prepared by JAXSON Grullon FINDINGS: RIGHT: 1. Common Femoral Vein: 1.1. Compressibility - Fully compressible: Thrombus - None : Flow - Phasic: Augmentation -Normal: Reflux - None. 2. Femoral Vein: 2.1. Compressibility - Fully compressible: Thrombus - None : Flow - Phasic: Augmentation -Normal: Reflux - None. 3. Popliteal Vein: 3.1. Compressibility - Fully compressible: Thrombus - None : Flow - Phasic: Augmentation -Normal: Reflux - None. 4. Posterior Tibial Vein: 4.1. Compressibility - Fully compressible: Thrombus - None: Flow - Phasic: Augmentation -Normal: Reflux - None. 5. Peroneal Vein: 5.1. Compressibility - Fully compressible: Thrombus - None: Flow - Phasic: Augmentation -Normal: Reflux - None. 6. Great Saphenous Vein: 6.1. Compressibility - Fully compressible: Thrombus - None: Flow - Phasic: Augmentation - Normal: Reflux - None. LEFT: 1. Common Femoral Vein: 1.1. Compressibility - Fully compressible: Thrombus - None: Flow - Phasic: Augmentation -Normal: Reflux - None. 2. Femoral Vein: 2.1. Compressibility - Fully compressible: Thrombus - None: Flow - Phasic: Augmentation -Normal: Reflux - None. 3. Popliteal Vein: 3.1. Compressibility - Fully compressible: Thrombus - None : Flow - Phasic: Augmentation -Normal: Reflux - None. 4. Posterior Tibial Vein: 4.1. Compressibility - Fully compressible: Thrombus - None: Flow - Phasic: Augmentation -Normal: Reflux - None. 5. Peroneal Vein: 5.1. Compressibility - Fully compressible: Thrombus - None: Flow - Phasic: Augmentation -Normal: Reflux - None. 6. Great Saphenous Vein: 6.1. Compressibility - Fully compressible: Thrombus - None: Flow - Phasic: Augmentation - Normal: Reflux - None. OTHER FINDINGS: Right: One of the Gastrocnemius veins was dilated and non compressible with echolucent thrombus. Left: None significant. Nurse Monet was notified at approximately 12:30 p.m. on 03/19/2017. The primary team was aware of this finding at the time of interpretation. IMPRESSION: Right: This study was positive for infrapopliteal deep venous thrombosis of the right lower extremity. Left: No evidence of deep or superficial vein thrombosis of the left lower extremity. Normal valve function noted of the left side.
[2017-03-19] MEDS: Ciprofloxacin 400mg/200ml D5W 400 MG/200 ML BAG IVPB SCH (15:09)
[2017-03-20] MEDS: Ciprofloxacin 400mg/200ml D5W 400 MG/200 ML BAG IVPB SCH ×2 (02:01→13:41)
[2017-03-20 07:13] LABS: BASO % 0.5 % (0.0-2.0); EOS # 0.2 K/uL (0.0-0.7); EOS % 2.8 % (0.0-4.0); HEMATOCRIT 35.2 % (34.0-47.0); LYMPH # 1.7 K/uL (1.0-4.3); LYMPH % 21.8 % (20.0-40.0); MEAN CELL VOLUME 77.4 fL (81.0-99.0); MEAN CORPUSCULAR HEMOGLOBIN 25.1 pg (27.0-31.0); MEAN CORPUSCULAR HGB CONC 32.4 g/dL (33.0-37.0); MONO # 0.6 K/uL (0.0-0.8); MONO % 7.8 % (0.0-10.0); RED CELL DISTRIBUTION WIDTH 14.3 % (11.5-14.5); WHITE BLOOD COUNT 7.8 K/uL (4.8-10.8)
[2017-03-20 07:49] LABS: CHLORIDE 99 mmol/L (98-107)
[2017-03-20 07:50] LABS: POTASSIUM 4.6 mmol/L (3.6-5.2); SODIUM 140 mmol/L (132-148)
[2017-03-20 07:52] LABS: ALB/GLOB RATIO 0.9 (1.0-2.1); ALKALINE PHOSPHATASE 71 U/L (38-126); AST/SGOT 19 U/L (14-36); BILIRUBIN,TOTAL 0.4 mg/dL (0.2-1.3); BLOOD UREA NITROGEN 17 mg/dL (7-17); CARBON DIOXIDE 25 mmol/L (22-30); GFR AFRICAN-AMERICAN > 60; GLUCOSE,RANDOM 117 mg/dL (65-105); TOTAL PROTEIN 7.3 g/dL (6.3-8.3)
[2017-03-20 07:53] LABS: ALT/SGPT 22 U/L (9-52); CALCIUM 8.9 mg/dl (8.6-10.4); MAGNESIUM 1.9 mg/dL (1.6-2.3); PHOSPHOROUS 4.3 mg/dL (2.5-4.5)
[2017-03-20] MEDS: Enoxaparin 40 mg Syringe SC SCH (09:15)
[2017-03-20] MEDS ORDERED: Enoxaparin 30 mg Syringe SC STA (10:21)
--- NOTE | 2017-03-20 10:36 | CP.PCM.PN ---
Subjective - Date & Time of Evaluation Date of Evaluation: 03/20/17 Time of Evaluation: 07:10 - Subjective Subjective: Vascular Surgery- Dr. Martins Pt S&E at bedside this AM. No acute events overnight. Pt complaining of ongoing pain in RLE. 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 Currently actively draining purulent fluid. Pt states right Medial malleolus fluid filled pocket got bigger overnight to 2cm. Denies N/V F/C CP/SOB. Objective - Vital Signs/Intake and Output Vital Signs (last 24 hours): Temp Pulse Resp BP Pulse Ox 98.6 F 67 20 117/74 97 03/20/17 00:00 03/20/17 00:00 03/20/17 00:00 03/20/17 00:00 03/20/17 00:00 Intake and Output: 03/20/17 03/20/17 06:59 18:59 Intake Total 250 Balance 250 - Medications Medications: Current Medications Aspirin (Aspirin Chewable) 81 mg PO DAILY [facility] Last Admin: 03/20/17 09:16 Dose: 81 mg Enoxaparin Sodium (Lovenox) 40 mg SC DAILY [facility] Last Admin: 03/20/17 09:15 Dose: 40 mg Famotidine (Pepcid) 20 mg PO DAILY [facility] Last Admin: 03/20/17 09:15 Dose: 20 mg Ciprofloxacin (Cipro 400mg/200ml Dsw) 400 mg in 200 mls @ 133 mls/hr IVPB Q12H [facility] Last Admin: 03/20/17 02:01 Dose: 133 mls/hr Morphine Sulfate (Morphine) 2 mg IVP Q4 PRN PRN Reason: Pain, moderate (4-7) Last Admin: 03/18/17 19:52 Dose: 2 mg - Labs Labs: 03/20/17 07:00 03/20/17 07:00 - Constitutional Appears: No Acute Distress - Head Exam Head Exam: ATRAUMATIC - ENT Exam ENT Exam: Mucous Membranes Moist - Respiratory Exam Respiratory Exam: NORMAL BREATHING PATTERN. absent: Accessory Muscle Use, Chest Wall Tenderness - Cardiovascular Exam Cardiovascular Exam: +S1, +S2 - GI/Abdominal Exam GI & Abdominal Exam: Soft. absent: Distended, Tenderness - Extremities Exam Extremities Exam: Tenderness Additional comments: Right lateral maleolus actively draining purulent fluid. Right medial fluid filled well circumscribed pocket. +2 DP pulses B/L - Neurological Exam Neurological Exam: Alert, Oriented x3 - Psychiatric Exam Psychiatric exam: Normal Affect - Skin Skin Exam: Normal Color Assessment and Plan - Assessment and Plan (Free Text) Assessment: 81F RLE cellulits and DVT Plan: - c/w medial management for DVT - aspirate and culture wound from medial and lateral malleoli - No acute surgical intervention at this time will discuss with Dr. Lakshmi Rodriguez PGY1
--- NOTE | 2017-03-20 10:41 | CP.PCM.PN ---
<Ran Brown - Last Filed: 03/20/17 20:36> Subjective - Date & Time of Evaluation Date of Evaluation: 03/20/17 Time of Evaluation: 07:40 - Subjective Subjective: PGY-[address] Doroteo Mays Patient seen and examined at bedside. Patient is complaining of right leg soreness at the site of needle aspiration. Patient is also complaining of generalized pain in the leg, pointing to another lesion which she states has been there for about a week. Patient denies fevers, chills, nausea, vomiting, chest pain, SOB, abdominal pain, dysuria. Objective - Vital Signs/Intake and Output Vital Signs (last 24 hours): Temp Pulse Resp BP Pulse Ox 98.6 F 67 20 117/74 97 03/20/17 00:00 03/20/17 00:00 03/20/17 00:00 03/20/17 00:00 03/20/17 00:00 Intake and Output: 03/20/17 03/20/17 06:59 18:59 Intake Total 250 Balance 250 - Medications Medications: Current Medications Aspirin (Aspirin Chewable) 81 mg PO DAILY [facility] Last Admin: 03/20/17 09:16 Dose: 81 mg Enoxaparin Sodium (Lovenox) 70 mg SC Q12H [facility] Famotidine (Pepcid) 20 mg PO DAILY [facility] Last Admin: 03/20/17 09:15 Dose: 20 mg Ciprofloxacin (Cipro 400mg/200ml Dsw) 400 mg in 200 mls @ 133 mls/hr IVPB Q12H [facility] Last Admin: 03/20/17 02:01 Dose: 133 mls/hr Morphine Sulfate (Morphine) 2 mg IVP Q4 PRN PRN Reason: Pain, moderate (4-7) Last Admin: 03/18/17 19:52 Dose: 2 mg - Labs Labs: 03/20/17 07:00 03/20/17 07:00 - Constitutional Appears: No Acute Distress - Head Exam Head Exam: ATRAUMATIC, NORMAL INSPECTION, NORMOCEPHALIC - Eye Exam Eye Exam: EOMI, PERRL - ENT Exam ENT Exam: Mucous Membranes Moist - Respiratory Exam Respiratory Exam: Clear to Ausculation Bilateral - Cardiovascular Exam Cardiovascular Exam: REGULAR RHYTHM, +S1, +S2, Murmur - GI/Abdominal Exam GI & Abdominal Exam: Soft, Normal Bowel Sounds. absent: Tenderness - Extremities Exam Additional comments: Dressing on right lateral malleolus wound c/d/i Right lateral malleolus wound draining pus Secondary lesion on RLE closer to medial malleolus Chronic venous stasis changes bilaterally - Neurological Exam Neurological Exam: Alert, Awake, Oriented x3 - Skin Skin Exam: Dry. absent: Normal Color Assessment and Plan - Assessment and Plan (Free Text) Plan: LE Cellulitis with ulceration * 2-3 cm superficial abscess on lateral aspect of R. LE * Needle aspiration of lesion was done at bedside 03/18/17 * Wound culture: Serratia Marcescens * Will start Cipro due to culture sensitivity and CATIE value * Zosyn 3.375 mg IVPB Q6 - discontinued 03/19 * Start Cipro 400mg IVPB Q12 hours (started 03/19 PM) * Aspirin 81 mg PO daily * f/u X ray to rule out osteomyelitis - X ray showed diffuse soft tissue swelling throughout soft tissues of right calf which may represent underlying cellulitis and ulceration and/or soft tissue swelling at lateral malleolus of right ankle. * f/u arterial dopplers * Morphine 1mg IVP Q6 prn severe pain * Morphine 0.5 mg IVP Q6 prn moderate pain * Afebrile, no WBC * Dr. Martins, vascular surgery consulted, help appreciated - f/u CTA with femoral runoff * Will order 3 phase bone scan Diabetes Mellitus * Newly diagnosed with Hemoglobin A1C 7 * Regular ISS * Accuchecks qAC&HS DVT * D-dimer elevated * No clinical signs of PE (no SOB, not tachycardic) * Dopplers revealed Right infrapopliteal DVT * Lovenox 70mg SC Q12H PPX * On Therapeutic Lovenox for DVT * Pepcid 20mg PO QD * Diabetic diet 03/20: division sales manager was notified about trying to get authorization for oral anticoagulant Xarelto for future discharge planning Case discussed with Dr. Doroteo Brown PGY1 <Paulo Mays - Last Filed: 03/21/17 21:56> Objective - Vital Signs/Intake and Output Vital Signs (last 24 hours): Temp Pulse Resp BP Pulse Ox 97.6 F 64 20 113/69 97 03/21/17 15:00 03/21/17 15:00 03/21/17 15:00 03/21/17 15:00 03/21/17 15:00 Intake and Output: 03/21/17 03/22/17 18:59 06:59 Intake Total 680 Balance 680 - Medications Medications: Current Medications Aspirin (Aspirin Chewable) 81 mg PO DAILY [facility] Last Admin: 03/21/17 10:24 Dose: 81 mg Enoxaparin Sodium (Lovenox) 70 mg SC Q12H [facility] Last Admin: 03/21/17 10:24 Dose: 70 mg Famotidine (Pepcid) 20 mg PO DAILY [facility] Last Admin: 03/21/17 10:24 Dose: 20 mg Ciprofloxacin (Cipro 400mg/200ml Dsw) 400 mg in 200 mls @ 133 mls/hr IVPB Q12H [facility] Last Admin: 03/21/17 14:19 Dose: 133 mls/hr Insulin Human Regular (Novolin R) 0 unit SC ACHS CANDY PRN Reason: Protocol Last Admin: 03/21/17 12:22 Dose: 2 unit Lisinopril (Zestril) 2.5 mg PO DAILY [facility] Last Admin: 03/21/17 10:24 Dose: 2.5 mg Morphine Sulfate (Morphine) 0.5 mg IVP Q6 PRN PRN Reason: Pain, moderate (4-7) Morphine Sulfate (Morphine) 1 mg IV Q6 PRN PRN Reason: Pain, severe (8-10) Last Admin: 03/21/17 02:14 Dose: 1 mg Rosuvastatin Calcium (Crestor) 5 mg PO HS [facility] Last Admin: 03/20/17 22:16 Dose: 5 mg - Labs Labs: 03/21/17 07:08 03/21/17 07:08 Attending/Attestation - Attestation I have personally seen and examined this patient.: Yes I have fully participated in the care of the patient.: Yes I have reviewed all pertinent clinical information, including history, physical exam and plan: Yes Notes (Text): 03/21/17 21:56 Patient was seen and examined on 03/20/17. Exam, Assessment and Plan were thoroughly gone over with the resident. Paulo Mays D.O.
[2017-03-20] MEDS ORDERED: Iodixanol 320 mg/ml 150 ml Bottle IV ONE (11:11)
--- NOTE | 2017-03-20 12:25 | CP.PCM.CON ---
History of Present Illness - History of Present Illness History of Present Illness: s/p drainage skin abscess cultures noted will follow Past Patient History - Tetanus Immunizations Tetanus Immunization: Unknown - Past Medical History & Family History Past Medical History?: No - Past Social History Smoking Status: Never Smoked - MUSCULOSKELETAL/RHEUMATOLOGICAL Hx Falls: No - PSYCHIATRIC Hx Substance Use: No - SURGICAL HISTORY Hx Surgeries: No Meds Allergies/Adverse Reactions: Allergies Allergy/AdvReac Type Severity Reaction Status Date / Time No Known Allergies Allergy Verified 03/17/17 16:30 - Medications Medications: Current Medications Aspirin (Aspirin Chewable) 81 mg PO DAILY [facility] Last Admin: 03/20/17 09:16 Dose: 81 mg Enoxaparin Sodium (Lovenox) 70 mg SC Q12H [facility] Famotidine (Pepcid) 20 mg PO DAILY [facility] Last Admin: 03/20/17 09:15 Dose: 20 mg Ciprofloxacin (Cipro 400mg/200ml Dsw) 400 mg in 200 mls @ 133 mls/hr IVPB Q12H [facility] Last Admin: 03/20/17 02:01 Dose: 133 mls/hr Morphine Sulfate (Morphine) 2 mg IVP Q4 PRN PRN Reason: Pain, moderate (4-7) Last Admin: 03/18/17 19:52 Dose: 2 mg Results - Vital Signs Recent Vital Signs: Last Vital Signs Temp 98.6 F 03/20/17 00:00 Pulse 67 03/20/17 00:00 Resp 20 03/20/17 00:00 BP 117/74 03/20/17 00:00 Pulse Ox 97 03/20/17 00:00 - Labs Result Diagrams: 03/20/17 07:00 03/20/17 07:00 Labs: Laboratory Results - last 24 hr 03/19/17 03/20/17 03/20/17 08:05 07:00 07:00 WBC 7.8 RBC 4.55 Hgb 11.4 Hct 35.2 MCV 77.4 L MCH 25.1 L MCHC 32.4 L RDW 14.3 Plt Count 300 MPV 8.0 Neut % (Auto) 67.1 Lymph % (Auto) 21.8 Towner % (Auto) 7.8 Eos % (Auto) 2.8 Baso % (Auto) 0.5 Neut # 5.3 Lymph # 1.7 Towner # 0.6 Eos # 0.2 Baso # 0.0 Sodium 140 Potassium 4.6 Chloride 99 Carbon Dioxide 25 Anion Gap 20 BUN 17 Creatinine 0.9 Est GFR ( Amer) > 60 Est GFR (Non-Af Amer) > 60 Random Glucose 117 H Hemoglobin A1c 7.0 H Calcium 8.9 Phosphorus 4.3 Magnesium 1.9 Total Bilirubin 0.4 AST 19 ALT 22 Alkaline Phosphatase 71 Total Protein 7.3 Albumin 3.4 L Globulin 3.8 Albumin/Globulin Ratio 0.9 L
[2017-03-20] MEDS ORDERED: Morphine 4 MG/ML VIAL IVP PRN (20:05)
[2017-03-20] MEDS: Enoxaparin 80 mg Syringe SC SCH (22:16)
[2017-03-20] MEDS: (Novolin R) Insulin Human Regular 100 units/ml vial SC SCH (22:19)
[2017-03-21] MEDS: Ciprofloxacin 400mg/200ml D5W 400 MG/200 ML BAG IVPB SCH ×2 (02:07→14:19)
[2017-03-21] MEDS: Morphine 4 MG/ML VIAL IV PRN (02:14)
[2017-03-21 07:27] LABS: BASO % 0.5 % (0.0-2.0); EOS # 0.2 K/uL (0.0-0.7); EOS % 3.5 % (0.0-4.0); HEMATOCRIT 35.1 % (34.0-47.0); LYMPH # 2.3 K/uL (1.0-4.3); LYMPH % 33.2 % (20.0-40.0); MEAN CELL VOLUME 77.2 fL (81.0-99.0); MEAN CORPUSCULAR HGB CONC 32.4 g/dL (33.0-37.0); MEAN PLATELET VOLUME 8.2 fL (7.2-11.7); MONO # 0.6 K/uL (0.0-0.8); MONO % 8.9 % (0.0-10.0); RED CELL DISTRIBUTION WIDTH 14.6 % (11.5-14.5); WHITE BLOOD COUNT 6.9 K/uL (4.8-10.8)
[2017-03-21 07:53] LABS: CHLORIDE 97 mmol/L (98-107)
[2017-03-21 07:54] LABS: POTASSIUM 4.3 mmol/L (3.6-5.2); SODIUM 140 mmol/L (132-148)
[2017-03-21 07:56] LABS: ALB/GLOB RATIO 0.9 (1.0-2.1); ALKALINE PHOSPHATASE 72 U/L (38-126); ALT/SGPT 35 U/L (9-52); AST/SGOT 34 U/L (14-36); BILIRUBIN,TOTAL 0.5 mg/dL (0.2-1.3); BLOOD UREA NITROGEN 17 mg/dL (7-17); CARBON DIOXIDE 27 mmol/L (22-30); GFR AFRICAN-AMERICAN > 60; TOTAL PROTEIN 7.5 g/dL (6.3-8.3)
[2017-03-21 07:57] LABS: CALCIUM 9.1 mg/dl (8.6-10.4); GLUCOSE,RANDOM 104 mg/dL (65-105)
[2017-03-21] MEDS: (Novolin R) Insulin Human Regular 100 units/ml vial SC SCH ×4 (08:00→22:17)
--- NOTE | 2017-03-21 08:37 | CP.PCM.PN ---
Subjective - Date & Time of Evaluation Date of Evaluation: 03/21/17 Time of Evaluation: 07:20 - Subjective Subjective: Vascular Surgery- Dr. Martins Pt S&E at bedside this AM. No acute events overnight. Pt complaining of ongoing pain in RLE. States site of lateral wound aspiration [employer]. Currently actively draining purulent fluid both medial and lateral right malleolus. Denies N/V F/C CP/SOB. Objective - Vital Signs/Intake and Output Vital Signs (last 24 hours): Temp Pulse Resp BP Pulse Ox 98 F 74 21 135/72 98 03/21/17 07:53 03/21/17 07:53 03/21/17 07:53 03/21/17 07:53 03/21/17 07:53 Intake and Output: 03/21/17 03/21/17 06:59 18:59 Intake Total 320 Balance 320 - Medications Medications: Current Medications Aspirin (Aspirin Chewable) 81 mg PO DAILY [facility] Last Admin: 03/20/17 09:16 Dose: 81 mg Enoxaparin Sodium (Lovenox) 70 mg SC Q12H [facility] Last Admin: 03/20/17 22:16 Dose: 70 mg Famotidine (Pepcid) 20 mg PO DAILY [facility] Last Admin: 03/20/17 09:15 Dose: 20 mg Ciprofloxacin (Cipro 400mg/200ml Dsw) 400 mg in 200 mls @ 133 mls/hr IVPB Q12H [facility] Last Admin: 03/21/17 02:07 Dose: 133 mls/hr Insulin Human Regular (Novolin R) 0 unit SC ACHS [facility] PRN Reason: Protocol Last Admin: 03/21/17 08:00 Dose: Not Given Lisinopril (Zestril) 2.5 mg PO DAILY [facility] Morphine Sulfate (Morphine) 0.5 mg IVP Q6 PRN PRN Reason: Pain, moderate (4-7) Morphine Sulfate (Morphine) 1 mg IV Q6 PRN PRN Reason: Pain, severe (8-10) Last Admin: 03/21/17 02:14 Dose: 1 mg Rosuvastatin Calcium (Crestor) 5 mg PO HS [facility] Last Admin: 03/20/17 22:16 Dose: 5 mg - Labs Labs: 03/21/17 07:08 03/21/17 07:08 - Constitutional Appears: No Acute Distress - Head Exam Head Exam: ATRAUMATIC - ENT Exam ENT Exam: Mucous Membranes Moist - Respiratory Exam Respiratory Exam: NORMAL BREATHING PATTERN. absent: Accessory Muscle Use, Rhonchi, Wheezes - Cardiovascular Exam Cardiovascular Exam: +S1, +S2 - GI/Abdominal Exam GI & Abdominal Exam: Soft. absent: Distended, Tenderness - Extremities Exam Additional comments: Right Malleolus Medial & lateral mild purulent drainage. Dressing C/D/I - Neurological Exam Neurological Exam: Awake, Oriented x3 - Psychiatric Exam Psychiatric exam: Normal Affect Assessment and Plan - Assessment and Plan (Free Text) Assessment: 81F RLE cellulitis & DVT Plan: - c/w medical management - f/u wound culture from aspirate - official read of CTA pending - further recs per Dr. Lakshmi Rodriguez PGY1
--- NOTE | 2017-03-21 09:35 | CP.PCM.PN ---
<Ran Brown - Last Filed: 03/21/17 17:43> Subjective - Date & Time of Evaluation Date of Evaluation: 03/21/17 Time of Evaluation: 07:30 - Subjective Subjective: PGY-[address] Doroteo Mays Patient seen and examined at bedside. Patient complained of a new lesion on her right leg proximal to the right medial malleolus lesion drained yesterday. This appeared overnight per patient. Patient was told that she has diabetes and became tearful. Reassurance given. Patient was seen again in the afternoon and reassured that her diabetes was manageable and that she was on the correct antibiotic for her wound. Objective - Vital Signs/Intake and Output Vital Signs (last 24 hours): Temp Pulse Resp BP Pulse Ox 98 F 74 21 135/72 98 03/21/17 07:53 03/21/17 07:53 03/21/17 07:53 03/21/17 07:53 03/21/17 07:53 Intake and Output: 03/21/17 03/21/17 06:59 18:59 Intake Total 320 Balance 320 - Medications Medications: Current Medications Aspirin (Aspirin Chewable) 81 mg PO DAILY [facility] Last Admin: 03/20/17 09:16 Dose: 81 mg Enoxaparin Sodium (Lovenox) 70 mg SC Q12H [facility] Last Admin: 03/20/17 22:16 Dose: 70 mg Famotidine (Pepcid) 20 mg PO DAILY [facility] Last Admin: 03/20/17 09:15 Dose: 20 mg Ciprofloxacin (Cipro 400mg/200ml Dsw) 400 mg in 200 mls @ 133 mls/hr IVPB Q12H [facility] Last Admin: 03/21/17 02:07 Dose: 133 mls/hr Insulin Human Regular (Novolin R) 0 unit SC ACHS [facility] PRN Reason: Protocol Last Admin: 03/21/17 08:00 Dose: Not Given Lisinopril (Zestril) 2.5 mg PO DAILY [facility] Morphine Sulfate (Morphine) 0.5 mg IVP Q6 PRN PRN Reason: Pain, moderate (4-7) Morphine Sulfate (Morphine) 1 mg IV Q6 PRN PRN Reason: Pain, severe (8-10) Last Admin: 03/21/17 02:14 Dose: 1 mg Rosuvastatin Calcium (Crestor) 5 mg PO HS [facility] Last Admin: 03/20/17 22:16 Dose: 5 mg - Labs Labs: 03/21/17 07:08 03/21/17 07:08 - Head Exam Head Exam: ATRAUMATIC, NORMAL INSPECTION, NORMOCEPHALIC - Eye Exam Eye Exam: EOMI, PERRL - ENT Exam ENT Exam: Mucous Membranes Moist - Respiratory Exam Respiratory Exam: Clear to Ausculation Bilateral - Cardiovascular Exam Cardiovascular Exam: REGULAR RHYTHM, +S1, +S2 - GI/Abdominal Exam GI & Abdominal Exam: Soft, Normal Bowel Sounds. absent: Tenderness - Extremities Exam Extremities Exam: absent: Pedal Edema Additional comments: Right leg lateral and medial malleoulus wounds not actively draining purulent fluid at time of exam. Dressings replaced by surgical team. New lesion noted proximal to right medial malleolus wound but is not open. Chronic venous stasis changes in b/l LE. - Neurological Exam Neurological Exam: Alert, Awake, Oriented x3 - Skin Skin Exam: Dry, Warm. absent: Normal Color Assessment and Plan - Assessment and Plan (Free Text) Plan: LE Cellulitis with ulceration * 2-3 cm superficial abscess on lateral aspect of R. LE * Needle aspiration of lesion was done at bedside 03/18/17 * Wound culture: Serratia Marcescens * Will start Cipro due to culture sensitivity and CATIE value * Zosyn 3.375 mg IVPB Q6 - discontinued 03/19 * Start Cipro 400mg IVPB Q12 hours (started 8/6 PM) * Aspirin 81 mg PO daily * f/u X ray to rule out osteomyelitis - X ray showed diffuse soft tissue swelling throughout soft tissues of right calf which may represent underlying cellulitis and ulceration and/or soft tissue swelling at lateral malleolus of right ankle. * f/u arterial dopplers * Morphine 1mg IVP Q6 prn severe pain * Morphine 0.5 mg IVP Q6 prn moderate pain * Afebrile, no WBC * Dr. Martins, vascular surgery consulted, help appreciated - f/u CTA with femoral runoff * F/u MRI of right leg/ankle w & w.o. contrast Diabetes Mellitus * Newly diagnosed with Hemoglobin A1C 7 * Regular ISS * Accuchecks qAC&HS DVT * D-dimer elevated * No clinical signs of PE (no SOB, not tachycardic) * Dopplers revealed Right infrapopliteal DVT * Lovenox 70mg SC Q12H Initial stages of Iron deficiency anemia * Iron studies including Total iron, TIBC, %saturation, ferritin for AM labs PPX * On Therapeutic Lovenox for DVT * Pepcid 20mg PO QD * Diabetic diet 03/20: product line manager was notified about trying to get authorization for oral anticoagulant Xarelto for future discharge planning 03/21: Need to follow up report of MRI of right leg/ankle Case discussed with Dr. Doroteo Brown PGY1 <Paulo Mays - Last Filed: 03/21/17 21:56> Objective - Vital Signs/Intake and Output Vital Signs (last 24 hours): Temp Pulse Resp BP Pulse Ox 97.6 F 64 20 113/69 97 03/21/17 15:00 03/21/17 15:00 03/21/17 15:00 03/21/17 15:00 03/21/17 15:00 Intake and Output: 03/21/17 03/22/17 18:59 06:59 Intake Total 680 Balance 680 - Medications Medications: Current Medications Aspirin (Aspirin Chewable) 81 mg PO DAILY [facility] Last Admin: 03/21/17 10:24 Dose: 81 mg Enoxaparin Sodium (Lovenox) 70 mg SC Q12H [facility] Last Admin: 03/21/17 10:24 Dose: 70 mg Famotidine (Pepcid) 20 mg PO DAILY [facility] Last Admin: 03/21/17 10:24 Dose: 20 mg Ciprofloxacin (Cipro 400mg/200ml Dsw) 400 mg in 200 mls @ 133 mls/hr IVPB Q12H [facility] Last Admin: 03/21/17 14:19 Dose: 133 mls/hr Insulin Human Regular (Novolin R) 0 unit SC ACHS [facility] PRN Reason: Protocol Last Admin: 03/21/17 12:22 Dose: 2 unit Lisinopril (Zestril) 2.5 mg PO DAILY [facility] Last Admin: 03/21/17 10:24 Dose: 2.5 mg Morphine Sulfate (Morphine) 0.5 mg IVP Q6 PRN PRN Reason: Pain, moderate (4-7) Morphine Sulfate (Morphine) 1 mg IV Q6 PRN PRN Reason: Pain, severe (8-10) Last Admin: 03/21/17 02:14 Dose: 1 mg Rosuvastatin Calcium (Crestor) 5 mg PO HS [facility] Last Admin: 03/20/17 22:16 Dose: 5 mg - Labs Labs: 03/21/17 07:08 03/21/17 07:08 Attending/Attestation - Attestation I have personally seen and examined this patient.: Yes I have fully participated in the care of the patient.: Yes I have reviewed all pertinent clinical information, including history, physical exam and plan: Yes Notes (Text): 03/21/17 21:48 Patient was seen and examined at 4:45 PM 03/21/17. Exam, Assessment and Plan were thoroughly gone over with the resident. Assessments: Right Leg Cellulitis/Abscess: s/p drainage right lateral and medial lower leg. F /U Ileofemoral Runoff findings. F/U MRI Right Lower Leg to rule out osteomyelitis. Wound Culture showing Gram Negative Serratia marcescens sensitive to Cipro which the patient is on. Blood Culture is negative to date. Right Infrapopliteal DVT: on therapeutic lovenox. I spoke with Retort Engineer Janey to see about providing patient with either xarelto or eliquis DM: HgBA1C is 7.0. Hold off on starting Metformin for now considering the treatment for right leg cellulitis/abscess. Currently on RISS low dose. On ACEI and Statin. Abnormal RBC Indices: Iron studies ordered for 03/22/17. Paulo Mays D.O.
[2017-03-21] MEDS: Enoxaparin 80 mg Syringe SC SCH ×2 (10:24→22:15)
--- NOTE | 2017-03-21 15:10 | CT ---
PROCEDURE: CT Angiography Abdomen, Pelvis and Lower Extremity with Contrast HISTORY: Right LE ulcers, possible PVD COMPARISON: None. TECHNIQUE: Technique: CT angiography of the abdomen, pelvis and bilateral lower extremities performed in the arterial phase of enhancement. Coronal and sagittal reformats, and well as rotating MIP images of the vessels generated at the workstation. Intravenous contrast dose: 150 ml Visipaque 320 Radiation dose: Total exam DLP = 1090.61 MGy-cm. This CT exam was performed using one or more of the following dose reduction techniques: Automated exposure control, adjustment of the mA and/or kV according to patient size, and/or use of iterative reconstruction technique. FINDINGS: CT ANGIOGRAPHY: ABDOMINAL AORTA:: MAJOR AORTIC BRANCHES: Celiac [place]: Unremarkable. Superior mesenteric artery: Unremarkable. Inferior mesenteric artery: Unremarkable. Renal arteries: Unremarkable. PELVIC ARTERIES: Right Common Iliac: Unremarkable. Right External Iliac: Unremarkable. Right Internal Iliac: Unremarkable. Left Common Iliac: Unremarkable. Left External Iliac: Unremarkable. Left Internal Iliac: Unremarkable. RIGHT LOWER EXTREMITY ARTERIES: Right Common Femoral: Unremarkable. Right Superficial Femoral: Unremarkable. Right Profunda Femoris: Unremarkable. Right Popliteal:Unremarkable. Right Anterior Tibial: Unremarkable. Right Tibioperoneal Trunk: Unremarkable. Right Posterior Tibial: Unremarkable. Right Peroneal: Unremarkable. Right dorsalis pedis : Unremarkable. LEFT LOWER EXTREMITY ARTERIES: Left Common Femoral: Unremarkable. Left Superficial Femoral: Unremarkable. Left Profunda Femoris: Unremarkable. Left Popliteal: Unremarkable. Left Anterior Tibial: Unremarkable. Left Tibioperoneal Trunk: Unremarkable. Left Posterior Tibial: Unremarkable. Left Peroneal: Unremarkable. Left Dorsalis pedis: Unremarkable. NON-ANGIOGRAPHIC ASPECT OF THE EXAM: LOWER THORAX: Minimal pleural thickening right lower lobe. LIVER: Unremarkable. No gross lesion or ductal dilatation. GALLBLADDER AND BILE DUCTS: Unremarkable. PANCREAS: Unremarkable. No gross lesion or ductal dilatation. SPLEEN: Unremarkable. ADRENALS: Unremarkable. No mass. KIDNEYS AND URETERS: Unremarkable. No hydronephrosis. No solid mass. STOMACH AND BOWEL: Unremarkable. No obstruction. No gross mural thickening. APPENDIX: Normal appendix. PERITONEUM: Unremarkable. No free fluid. No free air. LYMPH NODES: Unremarkable. No enlarged lymph nodes. BLADDER: Unremarkable. REPRODUCTIVE: Unremarkable. BONES: No acute fracture. OTHER FINDINGS: None. IMPRESSION: Unremarkable CT angiogram of the abdomen and pelvis. Right and left runoff is unremarkable. There is no evidence of peripheral disease. The tibial vessels on the peroneal artery is unremarkable in both right and left leg.
[2017-03-21] MEDS ORDERED: Gadodiamide 287 MG/ML VIAL (15ML) IV ONE (18:32)
[2017-03-22] MEDS: Ciprofloxacin 400mg/200ml D5W 400 MG/200 ML BAG IVPB SCH ×2 (01:52→14:36)
[2017-03-22 07:58] LABS: BASO % 0.4 % (0.0-2.0); EOS # 0.2 K/uL (0.0-0.7); EOS % 2.9 % (0.0-4.0); HEMATOCRIT 34.6 % (34.0-47.0); LYMPH % 28.9 % (20.0-40.0); MEAN CELL VOLUME 77.7 fL (81.0-99.0); MEAN CORPUSCULAR HEMOGLOBIN 25.5 pg (27.0-31.0); MEAN CORPUSCULAR HGB CONC 32.9 g/dL (33.0-37.0); MEAN PLATELET VOLUME 8.2 fL (7.2-11.7); MONO # 0.6 K/uL (0.0-0.8); MONO % 8.4 % (0.0-10.0); NRBC % 0.1 % (0.0-2.0); RED CELL DISTRIBUTION WIDTH 14.4 % (11.5-14.5)
[2017-03-22 08:15] LABS: IRON 58 ug/dL (37-170)
[2017-03-22 08:23] LABS: CHLORIDE 101 mmol/L (98-107); POTASSIUM 3.9 mmol/L (3.6-5.2); SODIUM 138 mmol/L (132-148)
[2017-03-22 08:25] LABS: BILIRUBIN,TOTAL 0.4 mg/dL (0.2-1.3); CARBON DIOXIDE 25 mmol/L (22-30); GFR AFRICAN-AMERICAN > 60
[2017-03-22 08:26] LABS: ALB/GLOB RATIO 0.9 (1.0-2.1); ALKALINE PHOSPHATASE 65 U/L (38-126); ALT/SGPT 35 U/L (9-52); AST/SGOT 32 U/L (14-36); BLOOD UREA NITROGEN 22 mg/dL (7-17); CALCIUM 9.1 mg/dl (8.6-10.4); GLUCOSE,RANDOM 104 mg/dL (65-105); TOTAL PROTEIN 7.3 g/dL (6.3-8.3)
[2017-03-22] MEDS: (Novolin R) Insulin Human Regular 100 units/ml vial SC SCH ×4 (10:13→22:02)
[2017-03-22] MEDS: Enoxaparin 80 mg Syringe SC SCH ×2 (10:13→21:30)
--- NOTE | 2017-03-22 10:48 | CP.PCM.PN ---
Subjective - Date & Time of Evaluation Date of Evaluation: 03/22/17 Time of Evaluation: 07:15 - Subjective Subjective: Vascular Surgery- Dr. Martins PT S&E at bedside this AM. No acute events overnight. Afebrile. Pain manageable. tolerating diet. Denies CP/SOB TAVERA F/C N/V/D. Wounds no longer draining purulent fluid. Objective - Vital Signs/Intake and Output Vital Signs (last 24 hours): Temp Pulse Resp BP Pulse Ox 97.8 F 62 20 114/72 96 03/22/17 08:15 03/22/17 08:15 03/22/17 08:15 03/22/17 08:15 03/22/17 08:15 Intake and Output: 03/22/17 03/22/17 06:59 18:59 Intake Total 320 Balance 320 - Medications Medications: Current Medications Aspirin (Aspirin Chewable) 81 mg PO DAILY [facility] Last Admin: 03/22/17 10:13 Dose: 81 mg Enoxaparin Sodium (Lovenox) 70 mg SC Q12H [facility] Last Admin: 03/22/17 10:13 Dose: 70 mg Famotidine (Pepcid) 20 mg PO DAILY [facility] Last Admin: 03/22/17 10:13 Dose: 20 mg Ciprofloxacin (Cipro 400mg/200ml Dsw) 400 mg in 200 mls @ 133 mls/hr IVPB Q12H [facility] Last Admin: 03/22/17 01:52 Dose: 133 mls/hr Insulin Human Regular (Novolin R) 0 unit SC ACHS [facility] PRN Reason: Protocol Last Admin: 03/22/17 10:13 Dose: Not Given Lisinopril (Zestril) 2.5 mg PO DAILY [facility] Last Admin: 03/22/17 10:13 Dose: 2.5 mg Morphine Sulfate (Morphine) 0.5 mg IVP Q6 PRN PRN Reason: Pain, moderate (4-7) Morphine Sulfate (Morphine) 1 mg IV Q6 PRN PRN Reason: Pain, severe (8-10) Last Admin: 03/21/17 02:14 Dose: 1 mg Rosuvastatin Calcium (Crestor) 5 mg PO HS [facility] Last Admin: 03/21/17 22:15 Dose: 5 mg - Labs Labs: 03/22/17 07:40 03/22/17 07:40 - Constitutional Appears: Non-toxic, No Acute Distress - Head Exam Head Exam: ATRAUMATIC - Eye Exam Eye Exam: EOMI - Respiratory Exam Respiratory Exam: NORMAL BREATHING PATTERN. absent: Accessory Muscle Use, Rales , Rhonchi, Wheezes - Cardiovascular Exam Cardiovascular Exam: +S1, +S2 - GI/Abdominal Exam GI & Abdominal Exam: Soft, Normal Bowel Sounds. absent: Distended, Tenderness - Extremities Exam Additional comments: lateral and medial malleoli no longer draining. - Neurological Exam Neurological Exam: Alert, Awake, Oriented x3 - Skin Skin Exam: Normal Color, Warm Assessment and Plan - Assessment and Plan (Free Text) Assessment: 81F RLE cellulitis Plan: - c/w anitbiotics - vessels patent - No surgical intervention at this time D/W Dr. Lakshmi Rodriguez PGY1
--- NOTE | 2017-03-22 11:04 | CP.PCM.PN ---
<Ran Brown - Last Filed: 03/22/17 21:54> Subjective - Date & Time of Evaluation Date of Evaluation: 03/22/17 Time of Evaluation: 07:00 - Subjective Subjective: PGY-[address] Doroteo Mays Patient seen and examined at bedside. Patient feels some soreness in her right leg at the areas of drainage. Patient denies fevers, chills, headache, chest pain, SOB, abdominal pain, dysuria. Objective - Vital Signs/Intake and Output Vital Signs (last 24 hours): Temp Pulse Resp BP Pulse Ox 97.8 F 62 20 114/72 96 03/22/17 08:15 03/22/17 08:15 03/22/17 08:15 03/22/17 08:15 03/22/17 08:15 Intake and Output: 03/22/17 03/22/17 06:59 18:59 Intake Total 320 Balance 320 - Medications Medications: Current Medications Aspirin (Aspirin Chewable) 81 mg PO DAILY [facility] Last Admin: 03/22/17 10:13 Dose: 81 mg Enoxaparin Sodium (Lovenox) 70 mg SC Q12H [facility] Last Admin: 03/22/17 10:13 Dose: 70 mg Famotidine (Pepcid) 20 mg PO DAILY [facility] Last Admin: 03/22/17 10:13 Dose: 20 mg Ciprofloxacin (Cipro 400mg/200ml Dsw) 400 mg in 200 mls @ 133 mls/hr IVPB Q12H [facility] Last Admin: 03/22/17 01:52 Dose: 133 mls/hr Insulin Human Regular (Novolin R) 0 unit SC ACHS [facility] PRN Reason: Protocol Last Admin: 03/22/17 10:13 Dose: Not Given Lisinopril (Zestril) 2.5 mg PO DAILY [facility] Last Admin: 03/22/17 10:13 Dose: 2.5 mg Morphine Sulfate (Morphine) 0.5 mg IVP Q6 PRN PRN Reason: Pain, moderate (4-7) Morphine Sulfate (Morphine) 1 mg IV Q6 PRN PRN Reason: Pain, severe (8-10) Last Admin: 03/21/17 02:14 Dose: 1 mg Rosuvastatin Calcium (Crestor) 5 mg PO HS [facility] Last Admin: 03/21/17 22:15 Dose: 5 mg - Labs Labs: 03/22/17 07:40 03/22/17 07:40 - Head Exam Head Exam: ATRAUMATIC, NORMAL INSPECTION, NORMOCEPHALIC - Eye Exam Eye Exam: EOMI, PERRL - ENT Exam ENT Exam: Mucous Membranes Moist - Respiratory Exam Respiratory Exam: Clear to Ausculation Bilateral - Cardiovascular Exam Cardiovascular Exam: REGULAR RHYTHM, +S1, +S2 - GI/Abdominal Exam GI & Abdominal Exam: Soft, Normal Bowel Sounds. absent: Tenderness - Extremities Exam Extremities Exam: absent: Pedal Edema Additional comments: B/l chronic venous stasis changes Right lateral malleolar wound still draining slight amount of purulent fluid. Right medial malleolar wound is not draining fluid. - Neurological Exam Neurological Exam: Alert, Awake, Oriented x3 - Skin Skin Exam: Dry, Warm Assessment and Plan - Assessment and Plan (Free Text) Plan: LE Cellulitis with ulceration * 2-3 cm superficial abscess on lateral aspect of R. LE * Needle aspiration of lesion was done at bedside 03/18/17 * Wound culture: Serratia Marcescens * Will start Cipro due to culture sensitivity and CATIE value * Zosyn 3.375 mg IVPB Q6 - discontinued 03/19 * Start Cipro 400mg IVPB Q12 hours (started 8/6 PM) * Aspirin 81 mg PO daily * f/u X ray to rule out osteomyelitis - X ray showed diffuse soft tissue swelling throughout soft tissues of right calf which may represent underlying cellulitis and ulceration and/or soft tissue swelling at lateral malleolus of right ankle. * f/u arterial dopplers * Morphine 1mg IVP Q6 prn severe pain * Morphine 0.5 mg IVP Q6 prn moderate pain * Afebrile, no WBC * Dr. Martins, vascular surgery consulted, help appreciated - f/u CTA with femoral runoff MRI of right leg/ankle 03/22/17: Soft tissue edema present in the lateral ankle characterized by high signal and fluid intensity sequences consistent with cellulitis as seen on CT. At that level, there is a 1.4 x 1.0 centimeter ovoid focus of signal abnormality demonstrating heterogeneous increased T2 signal, increased STIR signal, and patchy post-contrast enhancement which may represent possible phlegmon and or developing abscess collection. No findings to suggest acute osteomyelitis within the distal tibia and fibula Diabetes Mellitus * Newly diagnosed with Hemoglobin A1C 7 * Regular ISS * Accuchecks qAC&HS DVT * D-dimer elevated * No clinical signs of PE (no SOB, not tachycardic) * Dopplers revealed Right infrapopliteal DVT * Lovenox 70mg SC Q12H Initial stages of Iron deficiency anemia * Iron studies including Total iron, TIBC, %saturation, ferritin for AM labs PPX * On Therapeutic Lovenox for DVT * Pepcid 20mg PO QD * Diabetic diet 03/20: performance improvement manager was notified about trying to get authorization for oral anticoagulant Xarelto for future discharge planning 03/21: Need to follow up report of MRI of right leg/ankle 03/22: CTA with femoral runoff reveals no peripheral disease. Tibial vessels on the peroneal artery unremarkable in both legs. 03/23: MRI report reveals no osteomyelitis but possible phlegmon vs developing abscess collection Case Discussed with Dr. Davon Brown PGY-1 <Paulo Mays - Last Filed: 03/22/17 22:00> Objective - Vital Signs/Intake and Output Vital Signs (last 24 hours): Temp Pulse Resp BP Pulse Ox 97 F L 70 20 101/64 96 03/22/17 15:00 03/22/17 15:00 03/22/17 15:00 03/22/17 15:00 03/22/17 15:00 Intake and Output: 03/22/17 03/23/17 18:59 06:59 Intake Total 580 Balance 580 - Medications Medications: Current Medications Aspirin (Aspirin Chewable) 81 mg PO DAILY [facility] Last Admin: 03/22/17 10:13 Dose: 81 mg Enoxaparin Sodium (Lovenox) 70 mg SC Q12H [facility] Last Admin: 03/22/17 21:30 Dose: 70 mg Famotidine (Pepcid) 20 mg PO DAILY [facility] Last Admin: 03/22/17 10:13 Dose: 20 mg Ferrous Sulfate (Feosol) 325 mg PO DAILY [facility] Ciprofloxacin (Cipro 400mg/200ml Dsw) 400 mg in 200 mls @ 133 mls/hr IVPB Q12H [facility] Last Admin: 03/22/17 14:36 Dose: 133 mls/hr Insulin Human Regular (Novolin R) 0 unit SC ACHS [facility] PRN Reason: Protocol Last Admin: 03/22/17 17:30 Dose: 1 unit Lisinopril (Zestril) 2.5 mg PO DAILY [facility] Last Admin: 03/22/17 10:13 Dose: 2.5 mg Morphine Sulfate (Morphine) 0.5 mg IVP Q6 PRN PRN Reason: Pain, moderate (4-7) Morphine Sulfate (Morphine) 1 mg IV Q6 PRN PRN Reason: Pain, severe (8-10) Last Admin: 03/21/17 02:14 Dose: 1 mg Rosuvastatin Calcium (Crestor) 5 mg PO HS [facility] Last Admin: 03/22/17 21:31 Dose: 5 mg - Labs Labs: 03/22/17 07:40 03/22/17 07:40 Attending/Attestation - Attestation I have personally seen and examined this patient.: Yes I have fully participated in the care of the patient.: Yes I have reviewed all pertinent clinical information, including history, physical exam and plan: Yes Notes (Text): 03/22/17 21:56 Patient was seen and examined at 4:40 PM 03/22/17. Exam, Assessment and Plan were thoroughly gone over with the resident. Assessments: Right Leg Cellulitis/Abscess: s/p drainage right lateral and medial lower leg. Ileofemoral Runoff did not reveal any arterial disease. MRI Right Lower Leg did not reveal any osteomyelitis but did reveal presence of 1.4x1.1 cm phlegmon : Medicine Team will speak with Vascular Surgery to see if this needs to be I&D' d. Wound Culture showing Gram Negative Serratia marcescens sensitive to Cipro which the patient is on. Blood Culture is negative to date. Right Infrapopliteal DVT: on therapeutic lovenox. I spoke with Commercial Helicopter Pilot Janey and she informs me that Charge Nurse would be able to arrange for 30 day supply of Xarelto and that another 30 day supply could be obtained by patient through assistance program coupon from pharmaceutical [email or web address] (information in the chart). DM: HgBA1C is 7.0. Hold off on starting Metformin for now considering the treatment for right leg cellulitis/abscess. Currently on RISS low dose. On ACEI and Statin. Abnormal RBC Indices: Iron studies at the low end of normal therefore Ferrous Sulfate 325 mg PO 1x/day has been ordered. Paulo Mays D.O.
--- NOTE | 2017-03-22 15:10 | MRI ---
MRI right lower extremity History: Cellulitis. Evaluate for osteomyelitis. Comparison: None available. Technique: Multi-echo multiplanar sequences were performed through the right lower extremity without and with the use of intravenous contrast. Findings: Tarsal bones show moderate joint space loss and adaptive sclerosis with hypertrophic changes consistent with changes consistent with chronic primary osteoarthritis. Soft tissue edema present in the lateral ankle characterized by high signal and fluid intensity sequences consistent with cellulitis as seen on CT. At that level, there is a 1.4 x 1.0 centimeter ovoid focus of signal abnormality demonstrating heterogeneous increased T2 signal, increased STIR signal, and patchy post-contrast enhancement which may represent possible phlegmon and or developing abscess collection. No findings to suggest acute osteomyelitis within the distal tibia and fibula. Minimal subchondral cyst formation with minimal reactive edema seen at the lateral malleolus of the distal fibula suggestive for degenerative change. Anterior extensor tendons are preserved. Medial flexor tendons are preserved. Peroneal tendons are preserved. Anterior and posterior tibiofibular ligaments and talofibular ligaments are preserved. Achilles tendon preserved. Thickening of the plantar fascia measuring up to 7 millimeters with adjacent bony spurring and reactive edema in the inferior calcaneus suggestive for a moderate plantar fascitis. Mild signal abnormality within the sinus tarsi with decreased T1 signal and increased STIR signal suggestive for a sinus tarsi syndrome. No significant ankle joint effusion. 6 millimeter subchondral cyst formation seen within medial aspect of the talus bone. Impression: 1. Soft tissue edema present in the lateral ankle characterized by high signal and fluid intensity sequences consistent with cellulitis as seen on CT. At that level, there is a 1.4 x 1.0 centimeter ovoid focus of signal abnormality demonstrating heterogeneous increased T2 signal, increased STIR signal, and patchy post-contrast enhancement which may represent possible phlegmon and or developing abscess collection. No findings to suggest acute osteomyelitis within the distal tibia and fibula 2. Minimal subchondral cyst formation with minimal reactive edema seen at the lateral malleolus of the distal fibula suggestive for degenerative change. 4. Tarsal bones show moderate joint space loss and adaptive sclerosis with hypertrophic changes consistent with changes consistent with chronic primary osteoarthritis. 5. Thickening of the plantar fascia measuring up to 7 millimeters with adjacent bony spurring and reactive edema in the inferior calcaneus suggestive for a moderate plantar fascitis. 6. Mild signal abnormality within the sinus tarsi with decreased T1 signal and increased STIR signal suggestive for a sinus tarsi syndrome. 7. 6 millimeter subchondral cyst formation seen within medial aspect of the talus bone. These findings were preliminarily reported at 7:38 p.m. on 03/21/[address] Maikol Perez from [facility].
--- NOTE | 2017-03-22 18:08 | CP.PCM.PN ---
Subjective - Date & Time of Evaluation Date of Evaluation: 03/22/17 Time of Evaluation: 06:00 - Subjective Subjective: Pt complaining of ongoing pain in RLE. States site of lateral wound aspiration cutting machine tender. Currently actively draining purulent fluid both medial and lateral right malleolus Objective - Vital Signs/Intake and Output Vital Signs (last 24 hours): Temp Pulse Resp BP Pulse Ox 97 F L 70 20 101/64 96 03/22/17 15:00 03/22/17 15:00 03/22/17 15:00 03/22/17 15:00 03/22/17 15:00 Intake and Output: 03/22/17 03/22/17 06:59 18:59 Intake Total 320 580 Balance 320 580 - Medications Medications: Current Medications Aspirin (Aspirin Chewable) 81 mg PO DAILY [facility] Last Admin: 03/22/17 10:13 Dose: 81 mg Enoxaparin Sodium (Lovenox) 70 mg SC Q12H [facility] Last Admin: 03/22/17 10:13 Dose: 70 mg Famotidine (Pepcid) 20 mg PO DAILY [facility] Last Admin: 03/22/17 10:13 Dose: 20 mg Ferrous Sulfate (Feosol) 325 mg PO DAILY [facility] Ciprofloxacin (Cipro 400mg/200ml Dsw) 400 mg in 200 mls @ 133 mls/hr IVPB Q12H [facility] Last Admin: 03/22/17 14:36 Dose: 133 mls/hr Insulin Human Regular (Novolin R) 0 unit SC ACHS [facility] PRN Reason: Protocol Last Admin: 03/22/17 17:30 Dose: 1 unit Lisinopril (Zestril) 2.5 mg PO DAILY [facility] Last Admin: 03/22/17 10:13 Dose: 2.5 mg Morphine Sulfate (Morphine) 0.5 mg IVP Q6 PRN PRN Reason: Pain, moderate (4-7) Morphine Sulfate (Morphine) 1 mg IV Q6 PRN PRN Reason: Pain, severe (8-10) Last Admin: 03/21/17 02:14 Dose: 1 mg Rosuvastatin Calcium (Crestor) 5 mg PO HS [facility] Last Admin: 03/21/17 22:15 Dose: 5 mg - Labs Labs: 03/22/17 07:40 03/22/17 07:40 - Constitutional Appears: Non-toxic, Cachectic, Chronically Ill - Head Exam Head Exam: NORMOCEPHALIC - Eye Exam Eye Exam: PERRL - ENT Exam ENT Exam: Mucous Membranes Dry, Normal External Ear Exam - Neck Exam Neck Exam: absent: Lymphadenopathy - Respiratory Exam Respiratory Exam: Decreased Breath Sounds - Cardiovascular Exam Cardiovascular Exam: REGULAR RHYTHM - GI/Abdominal Exam GI & Abdominal Exam: Distended, Soft - Rectal Exam Rectal Exam: Deferred - Exam Exam: NORMAL INSPECTION - Extremities Exam Extremities Exam: absent: Pedal Edema - Back Exam Back Exam: absent: CVA tenderness (L), CVA tenderness (R) - Neurological Exam Neurological Exam: Alert, Awake - Psychiatric Exam Psychiatric exam: Normal Mood - Skin Skin Exam: Dry Assessment and Plan (1) Cellulitis Status: Acute (2) Pedal edema Status: Acute - Assessment and Plan (Free Text) Assessment: venous ulcers severe pain out of proportion r/o arterial occlusion
[2017-03-23] MEDS: Ciprofloxacin 400mg/200ml D5W 400 MG/200 ML BAG IVPB SCH ×2 (01:56→14:34)
[2017-03-23 07:16] LABS: BASO % 0.5 % (0.0-2.0); EOS # 0.3 K/uL (0.0-0.7); EOS % 3.1 % (0.0-4.0); HEMATOCRIT 33.9 % (34.0-47.0); LYMPH # 2.3 K/uL (1.0-4.3); LYMPH % 26.9 % (20.0-40.0); MEAN CELL VOLUME 77.6 fL (81.0-99.0); MEAN CORPUSCULAR HEMOGLOBIN 24.9 pg (27.0-31.0); MEAN CORPUSCULAR HGB CONC 32.1 g/dL (33.0-37.0); MEAN PLATELET VOLUME 8.3 fL (7.2-11.7); MONO # 0.8 K/uL (0.0-0.8); MONO % 9.2 % (0.0-10.0); NRBC % 0.1 % (0.0-2.0); RED CELL DISTRIBUTION WIDTH 14.5 % (11.5-14.5); WHITE BLOOD COUNT 8.5 K/uL (4.8-10.8)
[2017-03-23 07:42] LABS: ALKALINE PHOSPHATASE 69 U/L (38-126); ALT/SGPT 34 U/L (9-52); AST/SGOT 38 U/L (14-36); BILIRUBIN,TOTAL 0.4 mg/dL (0.2-1.3); BLOOD UREA NITROGEN 24 mg/dL (7-17); CARBON DIOXIDE 25 mmol/L (22-30); CHLORIDE 102 mmol/L (98-107); GFR AFRICAN-AMERICAN > 60; GLUCOSE,RANDOM 106 mg/dL (65-105); POTASSIUM 4.2 mmol/L (3.6-5.2); SODIUM 139 mmol/L (132-148); TOTAL PROTEIN 7.4 g/dL (6.3-8.3)
[2017-03-23 07:43] LABS: ALB/GLOB RATIO 0.9 (1.0-2.1)
[2017-03-23] MEDS: (Novolin R) Insulin Human Regular 100 units/ml vial SC SCH ×4 (09:45→22:36)
[2017-03-23] MEDS: Enoxaparin 80 mg Syringe SC SCH ×2 (09:47→22:35)
--- NOTE | 2017-03-23 17:50 | CP.PCM.PN ---
<Ran Brown - Last Filed: 03/23/17 17:47> Subjective - Date & Time of Evaluation Date of Evaluation: 03/23/17 Time of Evaluation: 07:40 - Subjective Subjective: PGY-[address] Doroteo Mays Patient seen and examined at bedside. Patient states that she is sore on her right leg. Patient states that the pain intermittently improves and worsens. Patient denies fevers, chills, headaches, dizziness, chest pain, SOB, abdominal pain, n/v/c/d, dysuria. Objective - Vital Signs/Intake and Output Vital Signs (last 24 hours): Temp Pulse Resp BP Pulse Ox 97.7 F 65 20 101/62 99 03/23/17 15:00 03/23/17 15:00 03/23/17 15:00 03/23/17 15:00 03/23/17 15:00 Intake and Output: 03/23/17 03/23/17 06:59 18:59 Intake Total 600 500 Balance 600 500 - Medications Medications: Current Medications Aspirin (Aspirin Chewable) 81 mg PO DAILY [facility] Last Admin: 03/23/17 09:47 Dose: 81 mg Docusate Sodium (Colace) 100 mg PO TID [facility] Enoxaparin Sodium (Lovenox) 70 mg SC Q12H [facility] Last Admin: 03/23/17 09:47 Dose: 70 mg Famotidine (Pepcid) 20 mg PO DAILY [facility] Last Admin: 03/23/17 09:47 Dose: 20 mg Ferrous Sulfate (Feosol) 325 mg PO DAILY [facility] Last Admin: 03/23/17 09:47 Dose: 325 mg Ciprofloxacin (Cipro 400mg/200ml Dsw) 400 mg in 200 mls @ 133 mls/hr IVPB Q12H [facility] Last Admin: 03/23/17 14:34 Dose: 133 mls/hr Insulin Human Regular (Novolin R) 0 unit SC ACHS [facility] PRN Reason: Protocol Last Admin: 03/23/17 14:36 Dose: 1 unit Lisinopril (Zestril) 2.5 mg PO DAILY [facility] Last Admin: 03/23/17 09:47 Dose: 2.5 mg Morphine Sulfate (Morphine) 0.5 mg IVP Q6 PRN PRN Reason: Pain, moderate (4-7) Last Admin: 03/23/17 09:52 Dose: 0.5 mg Morphine Sulfate (Morphine) 1 mg IV Q6 PRN PRN Reason: Pain, severe (8-10) Last Admin: 03/21/17 02:14 Dose: 1 mg Rosuvastatin Calcium (Crestor) 5 mg PO HS [facility] Last Admin: 03/22/17 21:31 Dose: 5 mg - Labs Labs: 03/23/17 06:35 03/23/17 06:32 - Constitutional Appears: No Acute Distress - Head Exam Head Exam: ATRAUMATIC, NORMAL INSPECTION, NORMOCEPHALIC - Eye Exam Eye Exam: EOMI, PERRL - ENT Exam ENT Exam: Mucous Membranes Moist - Respiratory Exam Respiratory Exam: Clear to Ausculation Bilateral. absent: Rales, Rhonchi, Wheezes - Cardiovascular Exam Cardiovascular Exam: REGULAR RHYTHM, +S1, +S2 - GI/Abdominal Exam GI & Abdominal Exam: Soft, Normal Bowel Sounds. absent: Tenderness - Extremities Exam Extremities Exam: absent: Pedal Edema Additional comments: B/l chronic venous stasis changes Right lateral malleolar wound still open but not actively draining. Right medial malleolar wound has closed. - Neurological Exam Neurological Exam: Alert, Awake, Oriented x3 - Skin Skin Exam: Dry, Intact, Normal Color, Warm Assessment and Plan - Assessment and Plan (Free Text) Plan: LE Cellulitis with ulceration * 2-3 cm superficial abscess on lateral aspect of R. LE * Needle aspiration of lesion was done at bedside 03/18/17 * Wound culture: Serratia Marcescens * Will start Cipro due to culture sensitivity and CATIE value * Zosyn 3.375 mg IVPB Q6 - discontinued 03/19 * Start Cipro 400mg IVPB Q12 hours (started 8 PM) * Aspirin 81 mg PO daily * f/u X ray to rule out osteomyelitis - X ray showed diffuse soft tissue swelling throughout soft tissues of right calf which may represent underlying cellulitis and ulceration and/or soft tissue swelling at lateral malleolus of right ankle. * f/u arterial dopplers * Morphine 1mg IVP Q6 prn severe pain * Morphine 0.5 mg IVP Q6 prn moderate pain * Afebrile, no WBC * Dr. Martins, vascular surgery consulted, help appreciated - f/u CTA with femoral runoff MRI of right leg/ankle 03/22/17: Soft tissue edema present in the lateral ankle characterized by high signal and fluid intensity sequences consistent with cellulitis as seen on CT. At that level, there is a 1.4 x 1.0 centimeter ovoid focus of signal abnormality demonstrating heterogeneous increased T2 signal, increased STIR signal, and patchy post-contrast enhancement which may represent possible phlegmon and or developing abscess collection. No findings to suggest acute osteomyelitis within the distal tibia and fibula Diabetes Mellitus * Newly diagnosed with Hemoglobin A1C 7 * Regular ISS * Accuchecks qAC&HS DVT * D-dimer elevated * No clinical signs of PE (no SOB, not tachycardic) * Dopplers revealed Right infrapopliteal DVT * Lovenox 70mg SC Q12H Initial stages of Iron deficiency anemia * Iron studies including Total iron, TIBC, %saturation, ferritin for AM labs PPX * On Therapeutic Lovenox for DVT * Pepcid 20mg PO QD * Diabetic diet 03/20: kosher dietary service manager was notified about trying to get authorization for oral anticoagulant Xarelto for future discharge planning 03/21: Need to follow up report of MRI of right leg/ankle 03/22: CTA with femoral runoff reveals no peripheral disease. Tibial vessels on the peroneal artery unremarkable in both legs. 03/23: MRI report reveals no osteomyelitis but possible phlegmon vs developing abscess collection. Surgery team was notified of this finding and asked to evaluate this new finding. Case Discussed with Dr. Davon Brown PGY-1 <Paulo Mays - Last Filed: 03/23/17 20:40> Objective - Vital Signs/Intake and Output Vital Signs (last 24 hours): Temp Pulse Resp BP Pulse Ox 97.7 F 65 20 101/62 99 03/23/17 15:00 03/23/17 15:00 03/23/17 15:00 03/23/17 15:00 03/23/17 15:00 Intake and Output: 03/23/17 03/24/17 18:59 06:59 Intake Total 500 Balance 500 - Medications Medications: Current Medications Aspirin (Aspirin Chewable) 81 mg PO DAILY [facility] Last Admin: 03/23/17 09:47 Dose: 81 mg Docusate Sodium (Colace) 100 mg PO TID [facility] Last Admin: 03/23/17 17:53 Dose: 100 mg Enoxaparin Sodium (Lovenox) 70 mg SC Q12H [facility] Last Admin: 03/23/17 09:47 Dose: 70 mg Famotidine (Pepcid) 20 mg PO DAILY [facility] Last Admin: 03/23/17 09:47 Dose: 20 mg Ferrous Sulfate (Feosol) 325 mg PO DAILY [facility] Last Admin: 03/23/17 09:47 Dose: 325 mg Ciprofloxacin (Cipro 400mg/200ml Dsw) 400 mg in 200 mls @ 133 mls/hr IVPB Q12H [facility] Last Admin: 03/23/17 14:34 Dose: 133 mls/hr Insulin Human Regular (Novolin R) 0 unit SC ACHS [facility] PRN Reason: Protocol Last Admin: 03/23/17 17:10 Dose: 1 unit Lisinopril (Zestril) 2.5 mg PO DAILY [facility] Last Admin: 03/23/17 09:47 Dose: 2.5 mg Morphine Sulfate (Morphine) 0.5 mg IVP Q6 PRN PRN Reason: Pain, moderate (4-7) Last Admin: 03/23/17 09:52 Dose: 0.5 mg Morphine Sulfate (Morphine) 1 mg IV Q6 PRN PRN Reason: Pain, severe (8-10) Last Admin: 03/21/17 02:14 Dose: 1 mg Rosuvastatin Calcium (Crestor) 5 mg PO HS [facility] Last Admin: 03/22/17 21:31 Dose: 5 mg - Labs Labs: 03/23/17 06:35 03/23/17 06:32 Attending/Attestation - Attestation I have personally seen and examined this patient.: Yes I have fully participated in the care of the patient.: Yes I have reviewed all pertinent clinical information, including history, physical exam and plan: Yes Notes (Text): 03/23/17 20:28 Patient was seen and examined at 2:30 PM 03/23/17. Exam, Assessment and Plan were thoroughly gone over with the resident. ROS: NO bowel movement in 2 days with last on Monday Could not participate in PT for 2 long as there was pain in the Right Foot upon ambulation Assessments: Right Leg Cellulitis/Abscess: s/p drainage right lateral and medial lower leg. Ileofemoral Runoff did not reveal any arterial disease. MRI Right Lower Leg did not reveal any osteomyelitis but did reveal presence of 1.4x1.1 cm phlegmon : I spoke with Podiatry Resident Dr. Lamas concerning this issue and whether this needed I&D. Podiatry Team will evaluate patient on 03/24/17. Wound Culture showing Gram Negative Serratia marcescens sensitive to Cipro which the patient is on. Blood Culture is negative to date. Right Infrapopliteal DVT: on therapeutic lovenox. I spoke with Fiscal Accounting Clerk Janey 03/22/17 and she informs me that Charge Nurse would be able to arrange for 30 day supply of Xarelto and that another 30 day supply could be obtained by patient through assistance program coupon from [employer] ( information in the chart). DM: HgBA1C is 7.0. Hold off on starting Metformin for now considering the treatment for right leg cellulitis/abscess. Currently on RISS low dose. On ACEI and Statin. Abnormal RBC Indices: Iron studies at the low end of normal therefore Ferrous Sulfate 325 mg PO 1x/day has been ordered. Constipation: Colace 100 mg PO 3x/day has been ordered. Paulo Mays D.O. 03/23/17 20:35
--- NOTE | 2017-03-23 17:59 | CP.PCM.PN ---
Subjective - Date & Time of Evaluation Date of Evaluation: 03/23/17 Time of Evaluation: 09:00 - Subjective Subjective: continues to experience pain out of proportion to clinical findings vascular on board iv rx reordered Objective - Vital Signs/Intake and Output Vital Signs (last 24 hours): Temp Pulse Resp BP Pulse Ox 97.7 F 65 20 101/62 99 03/23/17 15:00 03/23/17 15:00 03/23/17 15:00 03/23/17 15:00 03/23/17 15:00 Intake and Output: 03/23/17 03/23/17 06:59 18:59 Intake Total 600 500 Balance 600 500 - Medications Medications: Current Medications Aspirin (Aspirin Chewable) 81 mg PO DAILY [facility] Last Admin: 03/23/17 09:47 Dose: 81 mg Docusate Sodium (Colace) 100 mg PO TID [facility] Last Admin: 03/23/17 17:53 Dose: 100 mg Enoxaparin Sodium (Lovenox) 70 mg SC Q12H [facility] Last Admin: 03/23/17 09:47 Dose: 70 mg Famotidine (Pepcid) 20 mg PO DAILY [facility] Last Admin: 03/23/17 09:47 Dose: 20 mg Ferrous Sulfate (Feosol) 325 mg PO DAILY [facility] Last Admin: 03/23/17 09:47 Dose: 325 mg Ciprofloxacin (Cipro 400mg/200ml Dsw) 400 mg in 200 mls @ 133 mls/hr IVPB Q12H [facility] Last Admin: 03/23/17 14:34 Dose: 133 mls/hr Insulin Human Regular (Novolin R) 0 unit SC ACHS [facility] PRN Reason: Protocol Last Admin: 03/23/17 17:10 Dose: 1 unit Lisinopril (Zestril) 2.5 mg PO DAILY [facility] Last Admin: 03/23/17 09:47 Dose: 2.5 mg Morphine Sulfate (Morphine) 0.5 mg IVP Q6 PRN PRN Reason: Pain, moderate (4-7) Last Admin: 03/23/17 09:52 Dose: 0.5 mg Morphine Sulfate (Morphine) 1 mg IV Q6 PRN PRN Reason: Pain, severe (8-10) Last Admin: 03/21/17 02:14 Dose: 1 mg Rosuvastatin Calcium (Crestor) 5 mg PO HS [facility] Last Admin: 03/22/17 21:31 Dose: 5 mg - Labs Labs: 03/23/17 06:35 03/23/17 06:32 - Constitutional Appears: Non-toxic, Chronically Ill - Head Exam Head Exam: NORMOCEPHALIC - Eye Exam Eye Exam: PERRL - ENT Exam ENT Exam: Mucous Membranes Dry - Neck Exam Neck Exam: absent: Lymphadenopathy - Respiratory Exam Respiratory Exam: Prolonged Expiratory Phase - Cardiovascular Exam Cardiovascular Exam: REGULAR RHYTHM - GI/Abdominal Exam GI & Abdominal Exam: Distended, Soft - Rectal Exam Rectal Exam: Deferred - Extremities Exam Extremities Exam: Calf Tenderness, Tenderness. absent: Pedal Edema Assessment and Plan (1) Cellulitis Status: Acute (2) Pedal edema Status: Acute
[2017-03-24] MEDS: Ciprofloxacin 400mg/200ml D5W 400 MG/200 ML BAG IVPB SCH ×2 (02:35→14:10)
[2017-03-24 06:24] LABS: BASO % 0.5 % (0.0-2.0); EOS # 0.2 K/uL (0.0-0.7); EOS % 2.8 % (0.0-4.0); HEMATOCRIT 34.6 % (34.0-47.0); MEAN CELL VOLUME 76.9 fL (81.0-99.0); MEAN CORPUSCULAR HEMOGLOBIN 25.4 pg (27.0-31.0); MEAN CORPUSCULAR HGB CONC 33.1 g/dL (33.0-37.0); MEAN PLATELET VOLUME 7.5 fL (7.2-11.7); MONO # 0.7 K/uL (0.0-0.8); RED CELL DISTRIBUTION WIDTH 14.1 % (11.5-14.5)
[2017-03-24 06:48] LABS: ALB/GLOB RATIO 0.9 (1.0-2.1); ALKALINE PHOSPHATASE 66 U/L (38-126); ALT/SGPT 41 U/L (9-52); AST/SGOT 43 U/L (14-36); BILIRUBIN,TOTAL 0.4 mg/dL (0.2-1.3); BLOOD UREA NITROGEN 21 mg/dL (7-17); CALCIUM 8.9 mg/dl (8.6-10.4); CARBON DIOXIDE 25 mmol/L (22-30); CHLORIDE 103 mmol/L (98-107); GFR AFRICAN-AMERICAN > 60; GLUCOSE,RANDOM 123 mg/dL (65-105); POTASSIUM 4.5 mmol/L (3.6-5.2); SODIUM 140 mmol/L (132-148); TOTAL PROTEIN 7.4 g/dL (6.3-8.3)
[2017-03-24] MEDS: (Novolin R) Insulin Human Regular 100 units/ml vial SC SCH ×4 (08:10→22:21)
--- NOTE | 2017-03-24 11:32 | CP.PCM.PN ---
Subjective - Date & Time of Evaluation Date of Evaluation: 03/24/17 Time of Evaluation: 09:45 - Subjective Subjective: PGY-[address] Doroteo Mays Patient seen and examined at bedside. Patient states that the right leg pain and soreness is improved from yesterday. Patient still has not had a bowel movement as of this morning. It has been 3 days since the last one. Patient denies fevers, chills, headaches, dizziness, chest pain, SOB, abdominal pain, dysuria. Objective - Vital Signs/Intake and Output Vital Signs (last 24 hours): Temp Pulse Resp BP Pulse Ox 98.3 F 60 20 113/71 99 03/24/17 07:47 03/24/17 07:47 03/24/17 07:47 03/24/17 07:47 03/24/17 07:47 Intake and Output: 03/24/17 03/24/17 06:59 18:59 Intake Total 800 Balance 800 - Medications Medications: Current Medications Aspirin (Aspirin Chewable) 81 mg PO DAILY [facility] Last Admin: 03/24/17 10:27 Dose: 81 mg Docusate Sodium (Colace) 100 mg PO TID [facility] Last Admin: 03/24/17 10:28 Dose: 100 mg Famotidine (Pepcid) 20 mg PO DAILY [facility] Last Admin: 03/24/17 10:28 Dose: 20 mg Ferrous Sulfate (Feosol) 325 mg PO DAILY [facility] Last Admin: 03/24/17 10:28 Dose: 325 mg Ciprofloxacin (Cipro 400mg/200ml Dsw) 400 mg in 200 mls @ 133 mls/hr IVPB Q12H [facility] Last Admin: 03/24/17 02:35 Dose: 133 mls/hr Insulin Human Regular (Novolin R) 0 unit SC ACHS [facility] PRN Reason: Protocol Last Admin: 03/24/17 08:10 Dose: Not Given Lisinopril (Zestril) 2.5 mg PO DAILY [facility] Last Admin: 03/24/17 10:30 Dose: 2.5 mg Morphine Sulfate (Morphine) 0.5 mg IVP Q6 PRN PRN Reason: Pain, moderate (4-7) Last Admin: 03/23/17 09:52 Dose: 0.5 mg Morphine Sulfate (Morphine) 1 mg IV Q6 PRN PRN Reason: Pain, severe (8-10) Last Admin: 03/21/17 02:14 Dose: 1 mg Rosuvastatin Calcium (Crestor) 5 mg PO HS [facility] Last Admin: 03/23/17 22:35 Dose: 5 mg - Labs Labs: 03/24/17 06:15 03/24/17 06:15 - Constitutional Appears: No Acute Distress - Head Exam Head Exam: ATRAUMATIC, NORMAL INSPECTION, NORMOCEPHALIC - Eye Exam Eye Exam: EOMI, PERRL - ENT Exam ENT Exam: Mucous Membranes Moist - Respiratory Exam Respiratory Exam: Clear to Ausculation Bilateral. absent: Rales, Rhonchi, Wheezes - Cardiovascular Exam Cardiovascular Exam: REGULAR RHYTHM, +S1, +S2 - GI/Abdominal Exam GI & Abdominal Exam: Soft, Normal Bowel Sounds. absent: Tenderness - Extremities Exam Additional comments: B/l chronic venous stasis changes in LE Right lateral malleolar wound is open but not actively draining. The right medial malleolar wound is closed. - Neurological Exam Neurological Exam: Alert, Awake, Oriented x3 - Skin Skin Exam: Dry, Intact, Normal Color, Warm Assessment and Plan - Assessment and Plan (Free Text) Plan: LE Cellulitis with ulceration * 2-3 cm superficial abscess on lateral aspect of R. LE * Needle aspiration of lesion was done at bedside 03/18/17 * Wound culture: Serratia Marcescens * Will start Cipro due to culture sensitivity and CATIE value * Zosyn 3.375 mg IVPB Q6 - discontinued 03/19 * Start Cipro 400mg IVPB Q12 hours (started 8/6 PM) * Aspirin 81 mg PO daily * f/u X ray to rule out osteomyelitis - X ray showed diffuse soft tissue swelling throughout soft tissues of right calf which may represent underlying cellulitis and ulceration and/or soft tissue swelling at lateral malleolus of right ankle. * f/u arterial dopplers * Morphine 1mg IVP Q6 prn severe pain * Morphine 0.5 mg IVP Q6 prn moderate pain * Afebrile, no WBC * Dr. Martins, vascular surgery consulted, help appreciated - f/u CTA with femoral runoff MRI of right leg/ankle 03/22/17: Soft tissue edema present in the lateral ankle characterized by high signal and fluid intensity sequences consistent with cellulitis as seen on CT. At that level, there is a 1.4 x 1.0 centimeter ovoid focus of signal abnormality demonstrating heterogeneous increased T2 signal, increased STIR signal, and patchy post-contrast enhancement which may represent possible phlegmon and or developing abscess collection. No findings to suggest acute osteomyelitis within the distal tibia and fibula Diabetes Mellitus * Newly diagnosed with Hemoglobin A1C 7 * Regular ISS * Accuchecks qAC&HS DVT * D-dimer elevated * No clinical signs of PE (no SOB, not tachycardic) * Dopplers revealed Right infrapopliteal DVT * Lovenox 70mg SC Q12H Initial stages of Iron deficiency anemia * Iron studies: Total iron 58, TIBC 319, %saturation 18, ferritin 80.3 * Ferrous sulfate 325 mg PO daily started 03/23 Constipation * On Colace 100 mg PO TID PPX * On Therapeutic Lovenox for DVT * Pepcid 20mg PO QD * Diabetic diet 03/20: transport company manager was notified about trying to get authorization for oral anticoagulant Xarelto for future discharge planning 03/21: Need to follow up report of MRI of right leg/ankle 03/22: CTA with femoral runoff reveals no peripheral disease. Tibial vessels on the peroneal artery unremarkable in both legs. 03/23: MRI report reveals no osteomyelitis but possible phlegmon vs developing abscess collection. Surgery team was notified of this finding and asked to evaluate this new finding. 03/24: Patient seen by podiatry who will be monitoring her in the hospital. Attending was able to secure Xarelto for patient to receive as an outpatient. dairy machine operator farmworker made aware and was able to follow through for prison availability of the drug.
--- NOTE | 2017-03-24 18:37 | CP.PCM.CON ---
History of Present Illness - History of Present Illness History of Present Illness: 81 year old female patient seen at bedside at the request for podiatry consultation. Patient seen resting in bed comfortably, AAOx3 and NAD. Patient states she developed a painful wound on the outside of her right leg several weeks ago, with pain increasing in severity 8 days ago. Patient admits to pain around her wound and increased sensitivity to touch. Patient states she has been unable to ambulate normally due to pain. Patient states her leg has been swollen but has since decreased since admission. Patient denies any trauma to area. Patient denies N/V/F/D/C/SOB/calf pain. No other pedal complaints at this time. Review of Systems - Review of Systems All systems: reviewed and no additional remarkable complaints except (as per HPI ) Past Patient History - Tetanus Immunizations Tetanus Immunization: Unknown - Past Medical History & Family History Past Medical History?: No - Past Social History Smoking Status: Never Smoked - CARDIAC Hx Hypertension: Yes - MUSCULOSKELETAL/RHEUMATOLOGICAL Hx Arthritis: Yes (KNEE; B/L HALLUX VALGUS) - PSYCHIATRIC Hx Substance Use: No - SURGICAL HISTORY Hx Surgeries: No Meds Allergies/Adverse Reactions: Allergies Allergy/AdvReac Type Severity Reaction Status Date / Time No Known Allergies Allergy Verified 03/17/17 16:30 - Medications Medications: Current Medications Aspirin (Aspirin Chewable) 81 mg PO DAILY [facility] Last Admin: 03/24/17 10:27 Dose: 81 mg Docusate Sodium (Colace) 100 mg PO TID [facility] Last Admin: 03/24/17 17:07 Dose: 100 mg Famotidine (Pepcid) 20 mg PO DAILY [facility] Last Admin: 03/24/17 10:28 Dose: 20 mg Ferrous Sulfate (Feosol) 325 mg PO DAILY [facility] Last Admin: 03/24/17 10:28 Dose: 325 mg Ciprofloxacin (Cipro 400mg/200ml Dsw) 400 mg in 200 mls @ 133 mls/hr IVPB Q12H [facility] Last Admin: 03/24/17 14:10 Dose: 133 mls/hr Insulin Human Regular (Novolin R) 0 unit SC ACHS [facility] PRN Reason: Protocol Last Admin: 03/24/17 17:08 Dose: 1 unit Lisinopril (Zestril) 2.5 mg PO DAILY [facility] Last Admin: 03/24/17 10:30 Dose: 2.5 mg Morphine Sulfate (Morphine) 0.5 mg IVP Q6 PRN PRN Reason: Pain, moderate (4-7) Last Admin: 03/23/17 09:52 Dose: 0.5 mg Morphine Sulfate (Morphine) 1 mg IV Q6 PRN PRN Reason: Pain, severe (8-10) Last Admin: 03/21/17 02:14 Dose: 1 mg Rosuvastatin Calcium (Crestor) 5 mg PO HS [facility] Last Admin: 03/23/17 22:35 Dose: 5 mg Physical Exam - Constitutional Appears: Well, Non-toxic, No Acute Distress - Extremities Exam Additional comments: Vasc: DP pulses palpable 2/4 b/l. PT pulses palpable 1/4 b/l. CFT < 3 seconds to all digits x10. Mild nonpitting edema noted to RLE. No increase in warmth noted periwound. Neuro: Gross sensation intact bilaterally. Derm: Ulceration measuring approximately 1 x 2 x 0.2 cm noted to lateral aspect of right lower leg, proximal to lateral malleolus, at site of previous abscess. No purulence or drainage expressed at this visit. Erythema noted periwound. Ulcer is noted to have a mixed fibrogranular base with no undermining, tunneling , fluctuance, malodor noted. Hemosiderin deposits noted mediallly and distal to ulceration. Ortho: Pain on palpation to ulceration. - Neurological Exam Neurological exam: Alert, Oriented x3 - Psychiatric Exam Psychiatric exam: Normal Affect, Normal Mood Results - Vital Signs Recent Vital Signs: Last Vital Signs Temp 98.0 F 03/24/17 15:00 Pulse 66 03/24/17 15:00 Resp 20 03/24/17 15:00 BP 101/69 03/24/17 15:00 Pulse Ox 96 03/24/17 15:00 - Labs Result Diagrams: 03/24/17 06:15 03/24/17 06:15 Labs: Laboratory Results - last 24 hr 03/23/17 03/24/17 03/24/17 21:54 06:15 06:15 WBC 7.0 RBC 4.51 Hgb 11.4 Hct 34.6 MCV 76.9 L MCH 25.4 L MCHC 33.1 RDW 14.1 Plt Count 295 MPV 7.5 Neut % (Auto) 58.7 Lymph % (Auto) 28.0 Mitchell % (Auto) 10.0 Eos % (Auto) 2.8 Baso % (Auto) 0.5 Neut # 4.1 Lymph # 2.0 Mitchell # 0.7 Eos # 0.2 Baso # 0.0 Sodium 140 Potassium 4.5 Chloride 103 Carbon Dioxide 25 Anion Gap 17 BUN 21 H Creatinine 0.9 Est GFR ( Amer) > 60 Est GFR (Non-Af Amer) > 60 POC Glucose (mg/dL) 138 H Random Glucose 123 H Calcium 8.9 Total Bilirubin 0.4 AST 43 H ALT 41 Alkaline Phosphatase 66 Total Protein 7.4 Albumin 3.5 Globulin 3.9 Albumin/Globulin Ratio 0.9 L 03/24/17 03/24/17 03/24/17 07:22 11:38 16:06 WBC RBC Hgb Hct MCV MCH MCHC RDW Plt Count MPV Neut % (Auto) Lymph % (Auto) Mitchell % (Auto) Eos % (Auto) Baso % (Auto) Neut # Lymph # Mitchell # Eos # Baso # Sodium Potassium Chloride Carbon Dioxide Anion Gap BUN Creatinine Est GFR ( Amer) Est GFR (Non-Af Amer) POC Glucose (mg/dL) 119 H 166 H 157 H Random Glucose Calcium Total Bilirubin AST ALT Alkaline Phosphatase Total Protein Albumin Globulin Albumin/Globulin Ratio Assessment & Plan - Assessment and Plan (Free Text) Assessment: 81 year old female patient seen at bedside for RLE cellulitis and DVT Plan: Patient seen and evaluated at bedside Discussed with attending, Dr. Brewer Chart, labs, and vitals reviewed = afebrile, WBC WNL @ 7.0 R ankle wound cx reviewed = positive for serratia marcescens RLE MRI reviewed = (+)cellulitis, 1.4 x 1.0 abscess, (-)OM CTA reviewed = no evidence of peripheral disease LE duplex reviewed = (+)RLE DVT Continue abx per ID Continue pain mgmt per medicine Wound dressed with 4x4 gauze and kerlix Patient to be WBAT Podiatry will continue to monitor while in house - Date & Time Date: 03/24/17 Time: 18:46
[2017-03-25] MEDS: Ciprofloxacin 400mg/200ml D5W 400 MG/200 ML BAG IVPB SCH ×2 (01:38→14:40)
[2017-03-25 06:15] LABS: BASO % 0.4 % (0.0-2.0); EOS # 0.2 K/uL (0.0-0.7); EOS % 2.6 % (0.0-4.0); HEMATOCRIT 34.2 % (34.0-47.0); LYMPH % 25.4 % (20.0-40.0); MEAN CELL VOLUME 77.5 fL (81.0-99.0); MEAN CORPUSCULAR HEMOGLOBIN 25.5 pg (27.0-31.0); MEAN CORPUSCULAR HGB CONC 32.9 g/dL (33.0-37.0); MEAN PLATELET VOLUME 7.8 fL (7.2-11.7); MONO # 0.8 K/uL (0.0-0.8); MONO % 10.4 % (0.0-10.0); RED CELL DISTRIBUTION WIDTH 14.7 % (11.5-14.5)
[2017-03-25 06:35] LABS: ALKALINE PHOSPHATASE 62 U/L (38-126); ALT/SGPT 43 U/L (9-52); AST/SGOT 42 U/L (14-36); BILIRUBIN,TOTAL 0.2 mg/dL (0.2-1.3); BLOOD UREA NITROGEN 22 mg/dL (7-17); CALCIUM 8.9 mg/dl (8.6-10.4); CARBON DIOXIDE 25 mmol/L (22-30); CHLORIDE 102 mmol/L (98-107); GFR AFRICAN-AMERICAN > 60; GLUCOSE,RANDOM 112 mg/dL (65-105); POTASSIUM 4.4 mmol/L (3.6-5.2); SODIUM 137 mmol/L (132-148); TOTAL PROTEIN 7.1 g/dL (6.3-8.3)
--- NOTE | 2017-03-25 08:36 | CP.PCM.PN ---
<Hugo Brewer - Last Filed: 03/25/17 08:31> Subjective - Date & Time of Evaluation Date of Evaluation: 03/25/17 Time of Evaluation: 08:15 - Subjective Subjective: pt seen at bedside for eval of infected ulcer right ankle region .NO ABSCESS NOTED.Resolving cellulitis noted . No purulent drainage noted.Residual pocket of abscess drained with antibiotics post aspiration in ED. PT seen with RESIDENT. Objective - Vital Signs/Intake and Output Vital Signs (last 24 hours): Temp Pulse Resp BP Pulse Ox 98.6 F 68 20 119/77 98 03/25/17 00:00 03/25/17 00:00 03/25/17 00:00 03/25/17 00:00 03/25/17 00:00 Intake and Output: 03/25/17 03/25/17 06:59 18:59 Intake Total 680 Balance 680 - Medications Medications: Current Medications Aspirin (Aspirin Chewable) 81 mg PO DAILY [facility] Last Admin: 03/24/17 10:27 Dose: 81 mg Docusate Sodium (Colace) 100 mg PO TID [facility] Last Admin: 03/24/17 17:07 Dose: 100 mg Famotidine (Pepcid) 20 mg PO DAILY [facility] Last Admin: 03/24/17 10:28 Dose: 20 mg Ferrous Sulfate (Feosol) 325 mg PO DAILY [facility] Last Admin: 03/24/17 10:28 Dose: 325 mg Ciprofloxacin (Cipro 400mg/200ml Dsw) 400 mg in 200 mls @ 133 mls/hr IVPB Q12H [facility] Last Admin: 03/25/17 01:38 Dose: 133 mls/hr Insulin Human Regular (Novolin R) 0 unit SC ACHS [facility] PRN Reason: Protocol Last Admin: 03/24/17 22:21 Dose: Not Given Lisinopril (Zestril) 2.5 mg PO DAILY [facility] Last Admin: 03/24/17 10:30 Dose: 2.5 mg Morphine Sulfate (Morphine) 0.5 mg IVP Q6 PRN PRN Reason: Pain, moderate (4-7) Last Admin: 03/23/17 09:52 Dose: 0.5 mg Morphine Sulfate (Morphine) 1 mg IV Q6 PRN PRN Reason: Pain, severe (8-10) Last Admin: 03/21/17 02:14 Dose: 1 mg Rosuvastatin Calcium (Crestor) 5 mg PO HS [facility] Last Admin: 03/24/17 22:22 Dose: 5 mg - Labs Labs: 03/25/17 06:08 03/25/17 06:08 <Carlos Alberto Quinonez - Last Filed: 03/25/17 09:22> Subjective - Subjective Subjective: 81 year old female patient seen for infected lateral right ankle ulceration. Patient seen resting in bed comfortably, AAOx3 and NAD. She denies any overnight acute events. She reports moderate pain today at the site of ulceration. Dressing is clean, dry, and intact. Patient denies any trauma to area. Patient denies N/V/F/D/C/SOB/calf pain. No other pedal complaints at this time. Objective - Vital Signs/Intake and Output Vital Signs (last 24 hours): Temp Pulse Resp BP Pulse Ox 98.6 F 68 20 119/77 98 03/25/17 00:00 03/25/17 00:00 03/25/17 00:00 03/25/17 00:00 03/25/17 00:00 Intake and Output: 03/25/17 03/25/17 06:59 18:59 Intake Total 680 Balance 680 - Medications Medications: Current Medications Aspirin (Aspirin Chewable) 81 mg PO DAILY [facility] Last Admin: 03/24/17 10:27 Dose: 81 mg Docusate Sodium (Colace) 100 mg PO TID [facility] Last Admin: 03/24/17 17:07 Dose: 100 mg Enoxaparin Sodium (Lovenox) 70 mg SC Q12 [facility] Famotidine (Pepcid) 20 mg PO DAILY [facility] Last Admin: 03/24/17 10:28 Dose: 20 mg Ferrous Sulfate (Feosol) 325 mg PO DAILY [facility] Last Admin: 03/24/17 10:28 Dose: 325 mg Ciprofloxacin (Cipro 400mg/200ml Dsw) 400 mg in 200 mls @ 133 mls/hr IVPB Q12H [facility] Last Admin: 03/25/17 01:38 Dose: 133 mls/hr Insulin Human Regular (Novolin R) 0 unit SC ACHS [facility] PRN Reason: Protocol Last Admin: 03/24/17 22:21 Dose: Not Given Lisinopril (Zestril) 2.5 mg PO DAILY [facility] Last Admin: 03/24/17 10:30 Dose: 2.5 mg Morphine Sulfate (Morphine) 0.5 mg IVP Q6 PRN PRN Reason: Pain, moderate (4-7) Last Admin: 03/23/17 09:52 Dose: 0.5 mg Morphine Sulfate (Morphine) 1 mg IV Q6 PRN PRN Reason: Pain, severe (8-10) Last Admin: 03/21/17 02:14 Dose: 1 mg Rosuvastatin Calcium (Crestor) 5 mg PO HS [facility] Last Admin: 03/24/17 22:22 Dose: 5 mg - Labs Labs: 03/25/17 06:08 03/25/17 06:08 - Constitutional Appears: Well, Non-toxic, No Acute Distress - Extremities Exam Additional comments: Vasc: DP pulses palpable 2/4 b/l. PT pulses palpable 1/4 b/l. CFT < 3 seconds to all digits x10. Mild nonpitting edema noted to RLE. No increase in warmth noted periwound. Neuro: Gross sensation intact bilaterally. Derm: Ulceration measuring approximately 1 x 2 x 0.2 cm noted to lateral aspect of right lower leg, proximal to lateral malleolus, at site of previous abscess. No purulence drainage expressed, no abscess is noted at this time. Erythema noted periwound but has improved- improving. Ulcer is noted to have a mixed fibrogranular base with no undermining, tunneling, fluctuance, malodor noted. Hemosiderin deposits noted mediallly and distal to ulceration. Very mild sanginous drainage noted with removal of dry DSD adhering onto ulceration. Ortho: Severe pain on palpation to ulceration. - Neurological Exam Neurological Exam: Alert, Awake, Oriented x3 - Psychiatric Exam Psychiatric exam: Normal Affect, Normal Mood Assessment and Plan - Assessment and Plan (Free Text) Assessment: 81 year old female patient seen at bedside for RLE cellulitis, resolving and + DVT Plan: Patient seen and evaluated at bedside with attending Dr. Brewer Chart, labs, and vitals reviewed = afebrile, WBC WNL @ 8.0 R ankle wound cx reviewed = positive for serratia marcescens RLE MRI reviewed = (+)cellulitis, 1.4 x 1.0 abscess, (-)OM CTA reviewed = no evidence of peripheral disease LE duplex reviewed = (+)RLE DVT Continue abx per ID Continue pain mgmt per medicine Wound dressed xeroform, DSD, ABD, and kerlix Ordered Bactroban, will apply with dressing changes tomorrow Patient to be WBAT Podiatry will continue to monitor while in house
[2017-03-25] MEDS: (Novolin R) Insulin Human Regular 100 units/ml vial SC SCH ×4 (09:59→22:43)
[2017-03-25] MEDS: Enoxaparin 80 mg Syringe SC SCH ×2 (11:01→21:19)
--- NOTE | 2017-03-25 15:50 | CP.PCM.PN ---
<Petty Gautam - Last Filed: 03/25/17 15:50> Subjective - Date & Time of Evaluation Date of Evaluation: 03/25/17 Time of Evaluation: 09:10 Objective - Vital Signs/Intake and Output Vital Signs (last 24 hours): Temp Pulse Resp BP Pulse Ox 98 F 62 20 118/70 97 03/25/17 09:13 03/25/17 09:13 03/25/17 09:13 03/25/17 09:13 03/25/17 09:13 Intake and Output: 03/25/17 03/25/17 06:59 18:59 Intake Total 680 Balance 680 - Medications Medications: Current Medications Aspirin (Aspirin Chewable) [address] [facility] Last Admin: 03/25/17 11:00 Dose: 81 mg Docusate Sodium (Colace) [address] [facility] Last Admin: 03/25/17 14:41 Dose: Not Given Enoxaparin Sodium (Lovenox) [address] [facility] Last Admin: 03/25/17 11:01 Dose: 70 mg Famotidine (Pepcid) [address] [facility] Last Admin: 03/25/17 11:00 Dose: 20 mg Ferrous Sulfate (Feosol) [address] [facility] Last Admin: 03/25/17 11:00 Dose: 325 mg Ciprofloxacin (Cipro 400mg/200ml Dsw) 400 mg in 200 mls @ 133 mls/hr IVPB Q12H [facility] Last Admin: 03/25/17 14:40 Dose: 133 mls/hr Insulin Human Regular (Novolin R) [address] [facility] PRN Reason: Protocol Last Admin: 03/25/17 11:22 Dose: 1 unit Lisinopril (Zestril) 2.[address] [facility] Last Admin: 03/25/17 11:15 Dose: 2.5 mg Morphine Sulfate (Morphine) 0.5 mg IVP Q6 PRN PRN Reason: Pain, moderate (4-7) Last Admin: 03/23/17 09:52 Dose: 0.5 mg Morphine Sulfate (Morphine) 1 mg IV Q6 PRN PRN Reason: Pain, severe (8-10) Last Admin: 03/21/17 02:14 Dose: 1 mg Mupirocin (Bactroban Ointment) [address] [facility] Last Admin: 03/25/17 11:00 Dose: 1 applic Rosuvastatin Calcium (Crestor) [address] [facility] Last Admin: 03/24/17 22:22 Dose: 5 mg - Labs Labs: 03/25/17 06:08 03/25/17 06:08 <Paulo Mays - Last Filed: 03/25/17 20:31> Subjective - Subjective Subjective: Please see below Objective - Vital Signs/Intake and Output Vital Signs (last 24 hours): Temp Pulse Resp BP Pulse Ox 98.3 F 62 20 108/67 99 03/25/17 15:00 03/25/17 15:00 03/25/17 15:00 03/25/17 15:00 03/25/17 15:00 - Medications Medications: Current Medications Aspirin (Aspirin Chewable) [address] [facility] Last Admin: 03/25/17 11:00 Dose: 81 mg Docusate Sodium (Colace) [address] [facility] Last Admin: 03/25/17 17:56 Dose: 100 mg Enoxaparin Sodium (Lovenox) [address] [facility] Last Admin: 03/25/17 11:01 Dose: 70 mg Famotidine (Pepcid) [address] [facility] Last Admin: 03/25/17 11:00 Dose: 20 mg Ferrous Sulfate (Feosol) [address] [facility] Last Admin: 03/25/17 11:00 Dose: 325 mg Ciprofloxacin (Cipro 400mg/200ml Dsw) 400 mg in 200 mls @ 133 mls/hr IVPB Q12H [facility] Last Admin: 03/25/17 14:40 Dose: 133 mls/hr Insulin Human Regular (Novolin R) [address] [facility] PRN Reason: Protocol Last Admin: 03/25/17 17:30 Dose: 1 unit Lisinopril (Zestril) 2.[address] [facility] Last Admin: 03/25/17 11:15 Dose: 2.5 mg Morphine Sulfate (Morphine) 0.5 mg IVP Q6 PRN PRN Reason: Pain, moderate (4-7) Last Admin: 03/23/17 09:52 Dose: 0.5 mg Morphine Sulfate (Morphine) 1 mg IV Q6 PRN PRN Reason: Pain, severe (8-10) Last Admin: 03/21/17 02:14 Dose: 1 mg Mupirocin (Bactroban Ointment) 0 gm TOP BID [facility] Last Admin: 03/25/17 17:56 Dose: 1 applic Rosuvastatin Calcium (Crestor) [address] [facility] Last Admin: 03/24/17 22:22 Dose: 5 mg - Labs Labs: 03/25/17 06:08 03/25/17 06:08 Attending/Attestation - Attestation I have personally seen and examined this patient.: Yes I have fully participated in the care of the patient.: Yes I have reviewed all pertinent clinical information, including history, physical exam and plan: Yes Notes (Text): 03/25/17 20:10 Patient was seen and examined at 4:15 PM 03/25/17. Exam, Assessment and Plan were thoroughly gone over with the resident. ROS: Finally had a large bowel movement today Right lateral lower leg pain is less than yesterday NO other complaints upon FULL ROS Exam: General: AAOx3, NAD HEENT: NCA, EOMI, PERRLA, NO cervical/supraclavicular/submandibular lymphadenopathy, NO pharyngeal erythema/exudate, Mucous Membranes are moist, Nasal Turbinates are nonedematous/nonerythematous Cardio: NS1 and NS2, NO M/R/G Respiratory: CTA B/L, NO R/R/W GI: BSx4, Soft, NT, ND, NO HSM, NO guarding/rebound tenderness Ext: Right Lateral Lower Leg with irregularly shaped roughly 1 cm opening with some blood but no purulent material draining with no surrounding signs of cellulitis tender to the touch, Pulses are strong and equal, Capillary Refill is 2 seconds, NO edema, Chronic Venous Insufficiency changes in skin the lower third of the legs. Most of toes bilaterally are deviated laterally Neuro: CN II through XII are grossly intact Assessments: Right Leg Cellulitis/Abscess: s/p drainage right lateral and medial lower leg. Ileofemoral Runoff did not reveal any arterial disease. MRI Right Lower Leg did not reveal any osteomyelitis but did reveal presence of 1.4x1.1 cm phlegmon. I spoke with Wirer Dr. Chaparro on 03/25/17 and he explained that further drainage was not necessary. I also spoke with Dr. Brewer's resident Dr. Carlos Alberto Quinonez and Podiatry Team will be performing daily wound dressing changes with Adaptic Nonadhearant Dressings. Wound Culture showing Gram Negative Serratia marcescens sensitive to Cipro which the patient is on. Blood Culture is negative to date. Right Infrapopliteal DVT: on therapeutic lovenox. Form from [employer] was completed by myself and Licensed Bondsman Raymond to apply for 1 year free supply of Eliquis and placed in front of the chart. Rx for 30 day supply of Eliquis will be placed in front of chart on 03/26/17. DM: HgBA1C is 7.0. Hold off on starting Metformin for now considering the treatment for right leg cellulitis/abscess. Currently on RISS low dose. On ACEI and Statin. Abnormal RBC Indices: Iron studies at the low end of normal therefore Ferrous Sulfate 325 mg PO 1x/day has been ordered. Constipation: Colace 100 mg PO 3x/day and this will be continued for now as this has helped to resolve the constipation as patient had large bowel movement today. Please note patient is visiting from [facility] and was staying with her sister with whom she had a fight with on the day that she was about to go back and on the day that she presented to our facility for the Right Leg Abscess. Patient and sister are currently not on speaking terms. I spoke with patient's close friend Raisa [phone] and she is willing to take patient once she is ready for discharge. Please note patient does not qualify for Home PT or [facility] considering her non- residency status. She currently requires moderate assist with Rolling Walker from bed to bathrroom as per my conversation with PT Madiha. Rx for Rolling Walker has been placed in front of the chart so that Data Entry Processor may obtain Rolling Walker for patient. She will need to be able to use this walker herself prior to discharge. Paulo Mays D.O.
[2017-03-26 07:08] LABS: BASO % 0.4 % (0.0-2.0); EOS # 0.2 K/uL (0.0-0.7); EOS % 2.2 % (0.0-4.0); HEMATOCRIT 34.6 % (34.0-47.0); LYMPH # 2.7 K/uL (1.0-4.3); LYMPH % 31.4 % (20.0-40.0); MEAN CELL VOLUME 77.2 fL (81.0-99.0); MEAN CORPUSCULAR HEMOGLOBIN 25.3 pg (27.0-31.0); MEAN CORPUSCULAR HGB CONC 32.7 g/dL (33.0-37.0); MEAN PLATELET VOLUME 7.9 fL (7.2-11.7); MONO # 0.8 K/uL (0.0-0.8); MONO % 9.1 % (0.0-10.0); RED CELL DISTRIBUTION WIDTH 14.9 % (11.5-14.5); WHITE BLOOD COUNT 8.6 K/uL (4.8-10.8)
[2017-03-26 07:24] LABS: ALKALINE PHOSPHATASE 62 U/L (38-126); ALT/SGPT 43 U/L (9-52); AST/SGOT 36 U/L (14-36); BILIRUBIN,TOTAL 0.3 mg/dL (0.2-1.3); BLOOD UREA NITROGEN 22 mg/dL (7-17); CALCIUM 9.5 mg/dl (8.6-10.4); CARBON DIOXIDE 25 mmol/L (22-30); CHLORIDE 101 mmol/L (98-107); GFR AFRICAN-AMERICAN > 60; GLUCOSE,RANDOM 105 mg/dL (65-105); POTASSIUM 4.5 mmol/L (3.6-5.2); SODIUM 138 mmol/L (132-148)
[2017-03-26] MEDS: (Novolin R) Insulin Human Regular 100 units/ml vial SC SCH ×4 (08:44→22:19)
[2017-03-26] MEDS: Enoxaparin 80 mg Syringe SC SCH ×2 (09:46→22:15)
[2017-03-26] MEDS: Morphine 4 MG/ML VIAL IV PRN (09:48)
--- NOTE | 2017-03-26 14:04 | CP.PCM.PN ---
Subjective - Date & Time of Evaluation Date of Evaluation: 03/26/17 Time of Evaluation: 08:00 - Subjective Subjective: right lower leg with less paina nd swelling Objective - Vital Signs/Intake and Output Vital Signs (last 24 hours): Temp Pulse Resp BP Pulse Ox 98.3 F 60 20 126/70 96 03/26/17 08:00 03/26/17 08:00 03/26/17 08:00 03/26/17 08:00 03/26/17 08:00 Intake and Output: 03/26/17 03/26/17 06:59 18:59 Intake Total 360 Balance 360 - Medications Medications: Current Medications Aspirin (Aspirin Chewable) 81 mg PO DAILY [facility] Last Admin: 03/26/17 09:46 Dose: 81 mg Docusate Sodium (Colace) 100 mg PO TID [facility] Last Admin: 03/26/17 09:46 Dose: 100 mg Enoxaparin Sodium (Lovenox) 70 mg SC Q12 [facility] Last Admin: 03/26/17 09:46 Dose: 70 mg Famotidine (Pepcid) 20 mg PO DAILY [facility] Last Admin: 03/26/17 09:46 Dose: 20 mg Ferrous Sulfate (Feosol) 325 mg PO DAILY [facility] Last Admin: 03/26/17 09:46 Dose: 325 mg Ciprofloxacin (Cipro 400mg/200ml Dsw) 400 mg in 200 mls @ 133 mls/hr IVPB Q12H [facility] Last Admin: 03/25/17 14:40 Dose: 133 mls/hr Insulin Human Regular (Novolin R) 0 unit SC ACHS [facility] PRN Reason: Protocol Last Admin: 03/26/17 12:26 Dose: Not Given Lisinopril (Zestril) 2.5 mg PO DAILY [facility] Last Admin: 03/26/17 09:46 Dose: 2.5 mg Morphine Sulfate (Morphine) 0.5 mg IVP Q6 PRN PRN Reason: Pain, moderate (4-7) Last Admin: 03/23/17 09:52 Dose: 0.5 mg Morphine Sulfate (Morphine) 1 mg IV Q6 PRN PRN Reason: Pain, severe (8-10) Last Admin: 03/21/17 02:14 Dose: 1 mg Mupirocin (Bactroban Ointment) 0 gm TOP BID [facility] Last Admin: 03/26/17 09:46 Dose: 1 applic Rosuvastatin Calcium (Crestor) 5 mg PO HS [facility] Last Admin: 03/25/17 21:19 Dose: 5 mg - Labs Labs: 03/26/17 07:01 03/26/17 07:01 - Constitutional Appears: Non-toxic, Chronically Ill - Head Exam Head Exam: NORMOCEPHALIC - Eye Exam Eye Exam: PERRL - ENT Exam ENT Exam: Mucous Membranes Dry, Normal External Ear Exam - Respiratory Exam Respiratory Exam: Decreased Breath Sounds, Clear to Ausculation Bilateral - Cardiovascular Exam Cardiovascular Exam: REGULAR RHYTHM - GI/Abdominal Exam GI & Abdominal Exam: Distended, Soft - Rectal Exam Rectal Exam: Deferred Assessment and Plan (1) Cellulitis Status: Acute (2) Pedal edema Status: Acute
[2017-03-26] MEDS: Ciprofloxacin 400mg/200ml D5W 400 MG/200 ML BAG IVPB SCH (14:11)
--- NOTE | 2017-03-26 20:51 | CP.PCM.PN ---
Subjective - Date & Time of Evaluation Date of Evaluation: 03/26/17 Time of Evaluation: 18:20 - Subjective Subjective: Patient was seen and examined at 6:20 PM 03/26/17. Exam, Assessment and Plan were thoroughly gone over with the resident. ROS: Last bowel movement was yesterday 03/25/17 Right lateral lower leg pain continues to improve Left Upper Forearm edema NO other complaints upon FULL ROS Exam: General: AAOx3, NAD HEENT: NCA, EOMI, PERRLA, NO cervical/supraclavicular/submandibular lymphadenopathy, NO pharyngeal erythema/exudate, Mucous Membranes are moist, Nasal Turbinates are nonedematous/nonerythematous Cardio: NS1 and NS2, NO M/R/G Respiratory: CTA B/L, NO R/R/W GI: BSx4, Soft, NT, ND, NO HSM, NO guarding/rebound tenderness Ext: Right Lateral Lower Leg with irregularly shaped roughly 1 cm opening with some blood but no purulent material draining with no surrounding signs of cellulitis tender to the touch, Pulses are strong and equal, Capillary Refill is 2 seconds, NO edema, Chronic Venous Insufficiency changes in skin the lower third of the legs. Most of toes bilaterally are deviated laterally. Left Forearm superior aspect there is a round swelling superior to former IV site Neuro: CN II through XII are grossly intact Assessments: Right Leg Cellulitis/Abscess: s/p drainage right lateral and medial lower leg in the ER at time of admission. Ileofemoral Runoff did not reveal any arterial disease. MRI Right Lower Leg did not reveal any osteomyelitis but did reveal presence of 1.4x1.1 cm phlegmon. I spoke with Commercial Loan Reviewer Dr. Chaparro on 03/25/17 and he explained that further drainage was not necessary. I also spoke with Dr. Brewer's resident Dr. Carlos Alberto Quinonez and Podiatry Team will be performing daily wound dressing changes with Adaptic Nonadhearant Dressings. Wound Culture showing Gram Negative Serratia marcescens sensitive to Cipro which the patient is on. Blood Culture is negative to date. Right Infrapopliteal DVT: on therapeutic lovenox. Form from [employer] was completed by myself and Engraver Tender Raymond to apply for 1 year free supply of Eliquis and placed in front of the chart. Rx for 30 day supply of Eliquis was placed in front of chart on 03/26/17. Once these are approved then start the Eliquis Left Forearm Swelling: likely hematoma formed prior IV site, ice pack every 4 hours for 30 minutes, F/U venous duplex ordered for 03/27/17. DM: HgBA1C is 7.0. This is new onset. Hold off on starting Metformin for now considering the treatment for right leg cellulitis/abscess. Currently on RISS low dose. On ACEI and Statin. Abnormal RBC Indices: Iron studies at the low end of normal therefore Ferrous Sulfate 325 mg PO 1x/day has been ordered. Hx Constipation: Colace 100 mg PO 3x/day and this will be continued for now as this has helped to resolve the constipation as patient had large bowel movement 03/25/17. Please note patient is visiting from [facility] and was staying with her sister with whom she had a fight with on the day that she was about to go back and on the day that she presented to our facility for the Right Leg Abscess. Patient and sister are currently not on speaking terms. I spoke with patient's close friend Raisa [phone] and she is willing to take patient once she is ready for discharge. Please note patient does not qualify for Home PT or RUSS considering her non- residency status. She currently requires moderate assist with Rolling Walker from bed to bathroom as per my conversation with PT Madiha on 03/25/17. Rx for Rolling Walker has been placed in front of the chart so that Palm Gatherer may obtain Rolling Walker for patient. She will need to be able to use this walker herself prior to discharge. Paulo Mays D.O. Objective - Vital Signs/Intake and Output Vital Signs (last 24 hours): Temp Pulse Resp BP Pulse Ox 98.1 F 68 18 102/66 98 03/26/17 16:00 03/26/17 16:00 03/26/17 16:00 03/26/17 16:00 03/26/17 16:00 Intake and Output: 03/26/17 03/27/17 18:59 06:59 Intake Total 360 Balance 360 - Medications Medications: Current Medications Aspirin (Aspirin Chewable) 81 mg PO DAILY [facility] Last Admin: 03/26/17 09:46 Dose: 81 mg Docusate Sodium (Colace) 100 mg PO TID [facility] Last Admin: 03/26/17 17:51 Dose: 100 mg Enoxaparin Sodium (Lovenox) 70 mg SC Q12 [facility] Last Admin: 03/26/17 09:46 Dose: 70 mg Famotidine (Pepcid) 20 mg PO DAILY [facility] Last Admin: 03/26/17 09:46 Dose: 20 mg Ferrous Sulfate (Feosol) 325 mg PO DAILY [facility] Last Admin: 03/26/17 09:46 Dose: 325 mg Ciprofloxacin (Cipro 400mg/200ml Dsw) 400 mg in 200 mls @ 133 mls/hr IVPB Q12H [facility] Last Admin: 03/26/17 14:11 Dose: 133 mls/hr Insulin Human Regular (Novolin R) 0 unit SC ACHS [facility] PRN Reason: Protocol Last Admin: 03/26/17 16:51 Dose: Not Given Lisinopril (Zestril) 2.5 mg PO DAILY [facility] Last Admin: 03/26/17 09:46 Dose: 2.5 mg Morphine Sulfate (Morphine) 0.5 mg IVP Q6 PRN PRN Reason: Pain, moderate (4-7) Last Admin: 03/23/17 09:52 Dose: 0.5 mg Morphine Sulfate (Morphine) 1 mg IV Q6 PRN PRN Reason: Pain, severe (8-10) Last Admin: 03/21/17 02:14 Dose: 1 mg Mupirocin (Bactroban Ointment) 0 gm TOP BID [facility] Last Admin: 03/26/17 17:51 Dose: 1 applic Rosuvastatin Calcium (Crestor) 5 mg PO HS [facility] Last Admin: 03/25/17 21:19 Dose: 5 mg - Labs Labs: 03/26/17 07:01 03/26/17 07:01
--- NOTE | 2017-03-26 21:44 | CP.PCM.PN ---
Subjective - Date & Time of Evaluation Date of Evaluation: 03/26/17 Time of Evaluation: 08:35 - Subjective Subjective: 81 year old female patient seen for infected lateral right ankle ulceration. Patient seen resting in bed comfortably, AAOx3 and NAD. She denies any overnight acute events. She reports moderate pain today at the site of ulceration. Dressing is clean, dry, and intact with no strikethrough noted. Patient denies N/V/F/D/C/SOB/calf pain. No other pedal complaints at this time. Objective - Vital Signs/Intake and Output Vital Signs (last 24 hours): Temp Pulse Resp BP Pulse Ox 98.1 F 68 18 102/66 98 03/26/17 16:00 03/26/17 16:00 03/26/17 16:00 03/26/17 16:00 03/26/17 16:00 Intake and Output: 03/26/17 03/27/17 18:59 06:59 Intake Total 360 Balance 360 - Medications Medications: Current Medications Aspirin (Aspirin Chewable) 81 mg PO DAILY [facility] Last Admin: 03/26/17 09:46 Dose: 81 mg Docusate Sodium (Colace) 100 mg PO TID [facility] Last Admin: 03/26/17 17:51 Dose: 100 mg Enoxaparin Sodium (Lovenox) 70 mg SC Q12 [facility] Last Admin: 03/26/17 09:46 Dose: 70 mg Famotidine (Pepcid) 20 mg PO DAILY [facility] Last Admin: 03/26/17 09:46 Dose: 20 mg Ferrous Sulfate (Feosol) 325 mg PO DAILY [facility] Last Admin: 03/26/17 09:46 Dose: 325 mg Ciprofloxacin (Cipro 400mg/200ml Dsw) 400 mg in 200 mls @ 133 mls/hr IVPB Q12H [facility] Last Admin: 03/26/17 14:11 Dose: 133 mls/hr Insulin Human Regular (Novolin R) 0 unit SC ACHS [facility] PRN Reason: Protocol Last Admin: 03/26/17 16:51 Dose: Not Given Lisinopril (Zestril) 2.5 mg PO DAILY [facility] Last Admin: 03/26/17 09:46 Dose: 2.5 mg Morphine Sulfate (Morphine) 0.5 mg IVP Q6 PRN PRN Reason: Pain, moderate (4-7) Last Admin: 03/23/17 09:52 Dose: 0.5 mg Morphine Sulfate (Morphine) 1 mg IV Q6 PRN PRN Reason: Pain, severe (8-10) Last Admin: 03/21/17 02:14 Dose: 1 mg Mupirocin (Bactroban Ointment) 0 gm TOP BID [facility] Last Admin: 03/26/17 17:51 Dose: 1 applic Rosuvastatin Calcium (Crestor) 5 mg PO HS [facility] Last Admin: 03/25/17 21:19 Dose: 5 mg - Labs Labs: 03/26/17 07:01 03/26/17 07:01 - Constitutional Appears: Well, Non-toxic, No Acute Distress - Extremities Exam Additional comments: Vasc: DP pulses palpable 2/4 b/l. PT pulses palpable 1/4 b/l. CFT < 3 seconds to all digits x10. Mild nonpitting edema noted to RLE. No increase in warmth noted periwound. Neuro: Gross sensation intact bilaterally. Derm: Ulceration measuring approximately 1 x 2 x 0.2 cm noted to lateral aspect of right lower leg, proximal to lateral malleolus, at site of previous abscess. No purulence drainage expressed, no abscess is noted at this time. Erythema noted periwound but has improved- improving. Ulcer is noted to have a mixed fibrogranular base with no undermining, tunneling, fluctuance, malodor noted. Hemosiderin deposits noted mediallly and distal to ulceration. Dressing removed with no bleeding noted. Ortho: Severe pain on palpation to ulceration. - Neurological Exam Neurological Exam: Alert, Awake, Oriented x3 - Psychiatric Exam Psychiatric exam: Normal Affect, Normal Mood Assessment and Plan - Assessment and Plan (Free Text) Assessment: 81 year old female patient seen at bedside for RLE cellulitis, resolving and + DVT Plan: Patient seen and evaluated at bedside with attending Dr. Brewer Chart, labs, and vitals reviewed = afebrile, WBC WNL @ 8.6 R ankle wound cx reviewed = positive for serratia marcescens RLE MRI reviewed = (+)cellulitis, 1.4 x 1.0 abscess, (-)OM Clinicially absent abscess, resolved, cellulits improving CTA reviewed = no evidence of peripheral disease LE duplex reviewed = (+)RLE DVT Continue abx per ID Continue pain mgmt per medicine Wound dressed xeroform, DSD, ABD, and kerlix Dressing chagned with Bactroban Patient to be WBAT Podiatry will continue to monitor while in house
[2017-03-27] MEDS: Ciprofloxacin 400mg/200ml D5W 400 MG/200 ML BAG IVPB SCH ×2 (01:53→13:32)
[2017-03-27 06:35] LABS: ALKALINE PHOSPHATASE 64 U/L (38-126); ALT/SGPT 35 U/L (9-52); AST/SGOT 25 U/L (14-36); BILIRUBIN,TOTAL 0.2 mg/dL (0.2-1.3); BLOOD UREA NITROGEN 21 mg/dL (7-17); CALCIUM 9.4 mg/dl (8.6-10.4); CARBON DIOXIDE 23 mmol/L (22-30); CHLORIDE 102 mmol/L (98-107); GFR AFRICAN-AMERICAN > 60; GLUCOSE,RANDOM 107 mg/dL (65-105); INR 1.1; POTASSIUM 4.1 mmol/L (3.6-5.2); SODIUM 136 mmol/L (132-148); TOTAL PROTEIN 7.1 g/dL (6.3-8.3)
[2017-03-27 06:47] LABS: BASO % 0.4 % (0.0-2.0); EOS # 0.2 K/uL (0.0-0.7); HEMATOCRIT 34.9 % (34.0-47.0); LYMPH # 2.2 K/uL (1.0-4.3); LYMPH % 27.8 % (20.0-40.0); MEAN CORPUSCULAR HEMOGLOBIN 25.2 pg (27.0-31.0); MEAN CORPUSCULAR HGB CONC 32.7 g/dL (33.0-37.0); MEAN PLATELET VOLUME 8.1 fL (7.2-11.7); MONO # 0.8 K/uL (0.0-0.8); MONO % 9.5 % (0.0-10.0); RED CELL DISTRIBUTION WIDTH 14.6 % (11.5-14.5); WHITE BLOOD COUNT 8.1 K/uL (4.8-10.8)
[2017-03-27] MEDS: (Novolin R) Insulin Human Regular 100 units/ml vial SC SCH ×4 (08:37→21:37)
[2017-03-27 08:50] VITALS: RESP 20
[2017-03-27] MEDS: Enoxaparin 80 mg Syringe SC SCH (10:19)
--- NOTE | 2017-03-27 13:26 | CP.PCM.PN ---
<Ran Brown - Last Filed: 03/27/17 17:06> Subjective - Date & Time of Evaluation Date of Evaluation: 03/27/17 Time of Evaluation: 09:10 - Subjective Subjective: PGY-[address] Mejia Patient seen and examined at bedside. Patient reports improvement in pain on the right leg. Patient is currently unable to ambulate without assistance with a rolling walker. Patient denies fevers, chills, headaches, dizziness, chest pain, SOB, abdominal pain, dysuria. Objective - Vital Signs/Intake and Output Vital Signs (last 24 hours): Temp Pulse Resp BP Pulse Ox 98.1 F 72 20 118/75 96 03/27/17 08:00 03/27/17 12:33 03/27/17 08:00 03/27/17 08:00 03/27/17 12:33 Intake and Output: 03/27/17 03/27/17 06:59 18:59 Intake Total 440 Balance 440 - Medications Medications: Current Medications Aspirin (Aspirin Chewable) 81 mg PO DAILY [facility] Last Admin: 03/27/17 10:18 Dose: 81 mg Docusate Sodium (Colace) 100 mg PO TID [facility] Last Admin: 03/27/17 10:18 Dose: 100 mg Enoxaparin Sodium (Lovenox) 70 mg SC Q12 [facility] Last Admin: 03/27/17 10:19 Dose: 70 mg Famotidine (Pepcid) 20 mg PO DAILY [facility] Last Admin: 03/27/17 10:19 Dose: 20 mg Ferrous Sulfate (Feosol) 325 mg PO DAILY [facility] Last Admin: 03/27/17 10:19 Dose: 325 mg Ciprofloxacin (Cipro 400mg/200ml Dsw) 400 mg in 200 mls @ 133 mls/hr IVPB Q12H [facility] Last Admin: 03/27/17 01:53 Dose: 133 mls/hr Insulin Human Regular (Novolin R) 0 unit SC ACHS [facility] PRN Reason: Protocol Last Admin: 03/27/17 12:05 Dose: 1 unit Lisinopril (Zestril) 2.5 mg PO DAILY [facility] Last Admin: 03/27/17 10:19 Dose: 2.5 mg Metformin HCl (Glucophage) 500 mg PO BIDBS [facility] Morphine Sulfate (Morphine) 0.5 mg IVP Q6 PRN PRN Reason: Pain, moderate (4-7) Last Admin: 03/23/17 09:52 Dose: 0.5 mg Morphine Sulfate (Morphine) 1 mg IV Q6 PRN PRN Reason: Pain, severe (8-10) Last Admin: 03/21/17 02:14 Dose: 1 mg Mupirocin (Bactroban Ointment) 0 gm TOP BID [facility] Last Admin: 03/27/17 10:18 Dose: 1 applic Rosuvastatin Calcium (Crestor) 5 mg PO HS [facility] Last Admin: 03/26/17 22:15 Dose: 5 mg - Labs Labs: 03/27/17 06:16 03/27/17 06:16 PT 12.7 SECONDS (9.7-12.2) H 03/27/17 06:16 INR 1.1 03/27/17 06:16 APTT 39 SECONDS (21-34) H 03/27/17 06:16 - Constitutional Appears: No Acute Distress - Head Exam Head Exam: ATRAUMATIC, NORMAL INSPECTION, NORMOCEPHALIC - Eye Exam Eye Exam: EOMI, PERRL - ENT Exam ENT Exam: Mucous Membranes Moist - Respiratory Exam Respiratory Exam: Clear to Ausculation Bilateral - Cardiovascular Exam Cardiovascular Exam: REGULAR RHYTHM, +S1, +S2 - GI/Abdominal Exam GI & Abdominal Exam: Soft, Normal Bowel Sounds. absent: Tenderness - Extremities Exam Additional comments: b/l chronic venous stasis changes right lateral malleolar leg wound is open but not actively draining purulent fluid. - Neurological Exam Neurological Exam: Alert, Awake, Oriented x3 - Skin Skin Exam: Dry, Warm Assessment and Plan - Assessment and Plan (Free Text) Plan: LE Cellulitis with ulceration * 2-3 cm superficial abscess on lateral aspect of R. LE * Needle aspiration of lesion was done at bedside 03/18/17 * Wound culture: Serratia Marcescens * Will start Cipro due to culture sensitivity and CATIE value * Zosyn 3.375 mg IVPB Q6 - discontinued 03/19 * Start Cipro 400mg IVPB Q12 hours (started 8/6 PM) * Aspirin 81 mg PO daily * f/u X ray to rule out osteomyelitis - X ray showed diffuse soft tissue swelling throughout soft tissues of right calf which may represent underlying cellulitis and ulceration and/or soft tissue swelling at lateral malleolus of right ankle. * Morphine 1mg IVP Q6 prn severe pain * Morphine 0.5 mg IVP Q6 prn moderate pain * Afebrile, no WBC * Dr. Martins, vascular surgery consulted, help appreciated - * CTA with femoral runoff revealed no evidence of osteomyelitis MRI of right leg/ankle 03/22/17: Soft tissue edema present in the lateral ankle characterized by high signal and fluid intensity sequences consistent with cellulitis as seen on CT. At that level, there is a 1.4 x 1.0 centimeter ovoid focus of signal abnormality demonstrating heterogeneous increased T2 signal, increased STIR signal, and patchy post-contrast enhancement which may represent possible phlegmon and or developing abscess collection. No findings to suggest acute osteomyelitis within the distal tibia and fibula * Podiatry is following the patient but they do not recommend I&D at this time as of 03/27/17 Diabetes Mellitus * Newly diagnosed with Hemoglobin A1C 7 * Regular ISS * Metformin 500 mg PO BID started on 03/27 * Accuchecks qAC&HS DVT * D-dimer elevated * No clinical signs of PE (no SOB, not tachycardic) * Dopplers revealed Right infrapopliteal DVT * Lovenox 70mg SC Q12H Initial stages of Iron deficiency anemia * Iron studies: Total iron 58, TIBC 319, %saturation 18, ferritin 80.3 * Ferrous sulfate 325 mg PO daily started 03/23 Constipation * On Colace 100 mg PO TID PPX * On Therapeutic Lovenox for DVT but switched to Eliquis 10 mg PO BID starting in the evening * Pepcid 20mg PO QD * Diabetic diet 03/20: gaming manager was notified about trying to get authorization for oral anticoagulant Xarelto for future discharge planning 03/21: Need to follow up report of MRI of right leg/ankle 03/22: CTA with femoral runoff reveals no peripheral disease. Tibial vessels on the peroneal artery unremarkable in both legs. 03/23: MRI report reveals no osteomyelitis but possible phlegmon vs developing abscess collection. Surgery team was notified of this finding and asked to evaluate this new finding. 03/24: Patient seen by podiatry who will be monitoring her in the hospital. Attending was able to secure Eliquis instead of Xarelto for patient to receive as an outpatient. crisis worker made aware and was able to follow through for termination clerk availability of the drug. 03/27: Dr. Cates recommends continuing the Cipro for 7-10 more days. Patient was switched to Elliquis 10 mg PO BID this evening for DVT treatment. Patient will require 7 days at this dose and then will switch to 5 mg PO BID thereafter. Patient has applied for [facility] and is pending medicaid per social media developer. Case DW Dr. Roberto Brown PGY-1 <George Mejia - Last Filed: 05/01/17 15:49> Objective - Vital Signs/Intake and Output Vital Signs (last 24 hours): Temp Pulse Resp BP Pulse Ox 98.4 F 67 20 94/56 L 96 03/30/17 07:46 03/30/17 07:46 03/30/17 07:46 03/30/17 07:46 03/30/17 07:46 - Labs Labs: 03/30/17 06:51 03/30/17 06:50 PT 12.7 SECONDS (9.7-12.2) H 03/27/17 06:16 INR 1.1 03/27/17 06:16 APTT 39 SECONDS (21-34) H 03/27/17 06:16 Attending/Attestation - Attestation I have personally seen and examined this patient.: Yes I have fully participated in the care of the patient.: Yes I have reviewed all pertinent clinical information, including history, physical exam and plan: Yes Notes (Text): LE Cellulitis with ulceration Elevated DDIMER
--- NOTE | 2017-03-27 16:46 | CP.PCM.PN ---
Subjective - Date & Time of Evaluation Date of Evaluation: 03/27/17 Time of Evaluation: 14:42 - Subjective Subjective: Patient is a 81 year old female who is being treated for right lateral leg ulcerations. Patient states that her pain in the area is markedly decreased today and that overall she is feeling well. She denies any acute overnight events or any further pedal complaints at this time. Patient denies N/V/F/C/CP/ SOB. Objective - Vital Signs/Intake and Output Vital Signs (last 24 hours): Temp Pulse Resp BP Pulse Ox 98.1 F 67 20 100/65 99 03/27/17 15:00 03/27/17 15:00 03/27/17 15:00 03/27/17 15:00 03/27/17 15:00 Intake and Output: 03/27/17 03/27/17 06:59 18:59 Intake Total 440 880 Balance 440 880 - Medications Medications: Current Medications Aspirin (Aspirin Chewable) 81 mg PO DAILY [facility] Last Admin: 03/27/17 10:18 Dose: 81 mg Docusate Sodium (Colace) 100 mg PO TID [facility] Last Admin: 03/27/17 13:35 Dose: 100 mg Enoxaparin Sodium (Lovenox) 70 mg SC Q12 [facility] Last Admin: 03/27/17 10:19 Dose: 70 mg Famotidine (Pepcid) 20 mg PO DAILY [facility] Last Admin: 03/27/17 10:19 Dose: 20 mg Ferrous Sulfate (Feosol) 325 mg PO DAILY [facility] Last Admin: 03/27/17 10:19 Dose: 325 mg Ciprofloxacin (Cipro 400mg/200ml Dsw) 400 mg in 200 mls @ 133 mls/hr IVPB Q12H [facility] Last Admin: 03/27/17 13:32 Dose: 133 mls/hr Insulin Human Regular (Novolin R) 0 unit SC ACHS [facility] PRN Reason: Protocol Last Admin: 03/27/17 12:05 Dose: 1 unit Lisinopril (Zestril) 2.5 mg PO DAILY [facility] Last Admin: 03/27/17 10:19 Dose: 2.5 mg Metformin HCl (Glucophage) 500 mg PO BIDBS [facility] Morphine Sulfate (Morphine) 0.5 mg IVP Q6 PRN PRN Reason: Pain, moderate (4-7) Last Admin: 03/23/17 09:52 Dose: 0.5 mg Morphine Sulfate (Morphine) 1 mg IV Q6 PRN PRN Reason: Pain, severe (8-10) Last Admin: 03/21/17 02:14 Dose: 1 mg Mupirocin (Bactroban Ointment) 0 gm TOP BID [facility] Last Admin: 03/27/17 10:18 Dose: 1 applic Rosuvastatin Calcium (Crestor) 5 mg PO HS [facility] Last Admin: 03/26/17 22:15 Dose: 5 mg - Labs Labs: 03/27/17 06:16 03/27/17 06:16 PT 12.7 SECONDS (9.7-12.2) H 03/27/17 06:16 INR 1.1 03/27/17 06:16 APTT 39 SECONDS (21-34) H 03/27/17 06:16 - Constitutional Appears: Well, Non-toxic, No Acute Distress - Extremities Exam Additional comments: LE focused exam: Vasc: DP pulses palpable 2/4 b/l. PT pulses palpable 1/4 b/l. CFT < 3 seconds to all digits x10. Mild nonpitting edema noted to RLE at level of calf and ankle. No increase in warmth noted to periwound area. Neuro: Epicritic and protective sensation grossly intact bilaterally. Derm: Ulceration measuring approximately 1 x 2 x 0.2 cm noted to lateral aspect of right lower leg, proximal to lateral malleolus, at site of previous abscess. No drainage, purulence, malodor or other clinical signs of infection noted at this time. No periwound erythema appreciated. Ulcer is noted to have a mixed fibrogranular base with no undermining, tunneling, fluctuance noted. Hemosiderin deposits noted mediallly and distal to ulceration. Ortho: Minimal POP noted to ulcer site - Neurological Exam Neurological Exam: Alert, Awake, Oriented x3 - Psychiatric Exam Psychiatric exam: Normal Affect, Normal Mood Assessment and Plan - Assessment and Plan (Free Text) Assessment: 81 year old female with right lateral leg ulceration secondary to right leg cellulitis/abscess Plan: Patient seen and evaluated at bedside with attending Dr. Brewer Charts, labs and vitals reviewed; afebrile, WBC 8.1 Patient wound dressed with gauze and kerlix Patient to continue IV abx per ID Per Dr. Brewer patient is stable from podiatric standpoint and eligible for DC Patient to f/u with Dr. Brewer once DC
[2017-03-28] MEDS: Ciprofloxacin 400mg/200ml D5W 400 MG/200 ML BAG IVPB SCH ×2 (01:36→13:29)
[2017-03-28 07:10] LABS: BASO % 0.4 % (0.0-2.0); EOS # 0.2 K/uL (0.0-0.7); EOS % 2.2 % (0.0-4.0); HEMATOCRIT 34.9 % (34.0-47.0); LYMPH # 2.5 K/uL (1.0-4.3); LYMPH % 28.8 % (20.0-40.0); MEAN CELL VOLUME 77.4 fL (81.0-99.0); MEAN CORPUSCULAR HEMOGLOBIN 25.3 pg (27.0-31.0); MEAN CORPUSCULAR HGB CONC 32.7 g/dL (33.0-37.0); MEAN PLATELET VOLUME 7.7 fL (7.2-11.7); MONO # 0.9 K/uL (0.0-0.8); MONO % 9.9 % (0.0-10.0); RED CELL DISTRIBUTION WIDTH 14.2 % (11.5-14.5); WHITE BLOOD COUNT 8.6 K/uL (4.8-10.8)
[2017-03-28 07:26] LABS: CHLORIDE 101 mmol/L (98-107)
[2017-03-28 07:27] LABS: POTASSIUM 4.3 mmol/L (3.6-5.2); SODIUM 137 mmol/L (132-148)
[2017-03-28 07:29] LABS: CARBON DIOXIDE 25 mmol/L (22-30); GFR AFRICAN-AMERICAN > 60
[2017-03-28 07:30] LABS: ALKALINE PHOSPHATASE 60 U/L (38-126); ALT/SGPT 33 U/L (9-52); AST/SGOT 21 U/L (14-36); BILIRUBIN,TOTAL 0.4 mg/dL (0.2-1.3); BLOOD UREA NITROGEN 21 mg/dL (7-17); CALCIUM 9.3 mg/dl (8.6-10.4); GLUCOSE,RANDOM 100 mg/dL (65-105); TOTAL PROTEIN 7.1 g/dL (6.3-8.3)
[2017-03-28] MEDS: (Novolin R) Insulin Human Regular 100 units/ml vial SC SCH ×4 (07:49→22:07)
--- NOTE | 2017-03-28 12:07 | CP.PCM.PN ---
Subjective - Date & Time of Evaluation Date of Evaluation: 03/28/17 Time of Evaluation: 11:00 - Subjective Subjective: 81 year old female was seen resting comfortably at bedside regarding right lateral leg ulcerations. Patient states that her pain in the area is markedly decreased today and that overall she is feeling well. She denies any acute overnight events or any further pedal complaints at this time. Patient denies any n/v/f/c/sob/cp. Objective - Vital Signs/Intake and Output Vital Signs (last 24 hours): Temp Pulse Resp BP Pulse Ox 98.4 F 60 20 100/57 L 97 03/28/17 08:00 03/28/17 08:00 03/28/17 08:00 03/28/17 08:00 03/28/17 08:00 Intake and Output: 03/28/17 03/28/17 06:59 18:59 Intake Total 720 Balance 720 - Medications Medications: Current Medications Apixaban (Eliquis) 10 mg PO BID [facility] Last Admin: 03/28/17 09:59 Dose: 10 mg Aspirin (Aspirin Chewable) 81 mg PO DAILY [facility] Last Admin: 03/28/17 09:59 Dose: 81 mg Docusate Sodium (Colace) 100 mg PO TID [facility] Last Admin: 03/28/17 09:59 Dose: 100 mg Famotidine (Pepcid) 20 mg PO DAILY [facility] Last Admin: 03/28/17 09:59 Dose: 20 mg Ferrous Sulfate (Feosol) 325 mg PO DAILY [facility] Last Admin: 03/28/17 09:59 Dose: 325 mg Ciprofloxacin (Cipro 400mg/200ml Dsw) 400 mg in 200 mls @ 133 mls/hr IVPB Q12H [facility] Last Admin: 03/28/17 01:36 Dose: 133 mls/hr Insulin Human Regular (Novolin R) 0 unit SC ACHS [facility] PRN Reason: Protocol Last Admin: 03/28/17 07:49 Dose: Not Given Lisinopril (Zestril) 2.5 mg PO DAILY [facility] Last Admin: 03/28/17 10:00 Dose: Not Given Metformin HCl (Glucophage) 500 mg PO BIDBS [facility] Last Admin: 03/28/17 08:03 Dose: 500 mg Morphine Sulfate (Morphine) 0.5 mg IVP Q6 PRN PRN Reason: Pain, moderate (4-7) Last Admin: 03/23/17 09:52 Dose: 0.5 mg Morphine Sulfate (Morphine) 1 mg IV Q6 PRN PRN Reason: Pain, severe (8-10) Last Admin: 03/21/17 02:14 Dose: 1 mg Mupirocin (Bactroban Ointment) 0 gm TOP BID [facility] Last Admin: 03/28/17 09:58 Dose: 1 applic Rosuvastatin Calcium (Crestor) 5 mg PO HS [facility] Last Admin: 03/27/17 21:29 Dose: 5 mg - Labs Labs: 03/28/17 07:03 03/28/17 07:03 PT 12.7 SECONDS (9.7-12.2) H 03/27/17 06:16 INR 1.1 03/27/17 06:16 APTT 39 SECONDS (21-34) H 03/27/17 06:16 - Constitutional Appears: Well, Non-toxic, No Acute Distress - Extremities Exam Additional comments: Right lower extremity focused exam: Vasc: DP pulses palpable 2/4. PT pulses palpable 1/4. CFT < 3 seconds to all digits. Mild non-pitting edema noted to RLE at level of calf and ankle. No increase in warmth noted to periwound area. Neuro: Epicritic and protective sensation grossly intact. Derm: Ulceration measuring approximately 1 cm x 2 cm x 0.2 cm noted to lateral aspect of right lower leg, proximal to lateral malleolus. No drainage, purulence , malodor or other clinical signs of infection noted at this time. No periwound erythema appreciated. Ulcer is noted to have a mixed fibrogranular base with no undermining, tunneling, fluctuance noted. Hemosiderin deposits noted mediallly and distal to ulceration. Ortho: Minimal POP noted to ulcer site - Neurological Exam Neurological Exam: Alert, Awake, Oriented x3 - Psychiatric Exam Psychiatric exam: Normal Affect, Normal Mood Assessment and Plan - Assessment and Plan (Free Text) Assessment: 81 year old female with right lateral leg ulceration secondary to right leg cellulitis Plan: Patient seen and evaluated at bedside Discussed with attending Dr. Brewer Charts, labs and vitals reviewed; afebrile Patient wound dressed with gauze and kerlix Patient to continue IV abx per ID Per Dr. Brewer patient is stable from podiatric standpoint and eligible for DC Patient to f/u with Dr. Brewer once DC
--- NOTE | 2017-03-28 17:16 | CP.PCM.PN ---
<Ran Brown - Last Filed: 03/28/17 17:43> Subjective - Date & Time of Evaluation Date of Evaluation: 03/28/17 Time of Evaluation: 07:15 - Subjective Subjective: PGY-[address] Mejia Patient seen and examined at bedside. Patient reports improvement in her leg pain but also endorses left arm pain and swelling. Patient denies fevers, chills , dizziness, chest pain, SOB, abdominal pain, n/v/c/d. Patient did have a bowel movement yesterday. Objective - Vital Signs/Intake and Output Vital Signs (last 24 hours): Temp Pulse Resp BP Pulse Ox 97.7 F 72 20 104/64 97 03/28/17 15:00 03/28/17 15:00 03/28/17 15:00 03/28/17 15:00 03/28/17 15:00 Intake and Output: 03/28/17 03/28/17 06:59 18:59 Intake Total 720 560 Balance 720 560 - Medications Medications: Current Medications Apixaban (Eliquis) 10 mg PO BID [facility] Last Admin: 03/28/17 09:59 Dose: 10 mg Aspirin (Aspirin Chewable) 81 mg PO DAILY [facility] Last Admin: 03/28/17 09:59 Dose: 81 mg Docusate Sodium (Colace) 100 mg PO TID [facility] Last Admin: 03/28/17 13:28 Dose: 100 mg Famotidine (Pepcid) 20 mg PO DAILY [facility] Last Admin: 03/28/17 09:59 Dose: 20 mg Ferrous Sulfate (Feosol) 325 mg PO DAILY [facility] Last Admin: 03/28/17 09:59 Dose: 325 mg Ciprofloxacin (Cipro 400mg/200ml Dsw) 400 mg in 200 mls @ 133 mls/hr IVPB Q12H [facility] Last Admin: 03/28/17 13:29 Dose: 133 mls/hr Insulin Human Regular (Novolin R) 0 unit SC ACHS [facility] PRN Reason: Protocol Last Admin: 03/28/17 12:09 Dose: Not Given Lisinopril (Zestril) 2.5 mg PO DAILY [facility] Last Admin: 03/28/17 10:00 Dose: Not Given Metformin HCl (Glucophage) 500 mg PO BIDBS [facility] Last Admin: 03/28/17 08:03 Dose: 500 mg Morphine Sulfate (Morphine) 0.5 mg IVP Q6 PRN PRN Reason: Pain, moderate (4-7) Last Admin: 03/23/17 09:52 Dose: 0.5 mg Morphine Sulfate (Morphine) 1 mg IV Q6 PRN PRN Reason: Pain, severe (8-10) Last Admin: 03/21/17 02:14 Dose: 1 mg Mupirocin (Bactroban Ointment) 0 gm TOP BID [facility] Last Admin: 03/28/17 09:58 Dose: 1 applic Rosuvastatin Calcium (Crestor) 5 mg PO HS [facility] Last Admin: 03/27/17 21:29 Dose: 5 mg - Labs Labs: 03/28/17 07:03 03/28/17 07:03 PT 12.7 SECONDS (9.7-12.2) H 03/27/17 06:16 INR 1.1 03/27/17 06:16 APTT 39 SECONDS (21-34) H 03/27/17 06:16 - Head Exam Head Exam: ATRAUMATIC, NORMAL INSPECTION, NORMOCEPHALIC - Eye Exam Eye Exam: EOMI, PERRL - ENT Exam ENT Exam: Mucous Membranes Moist - Respiratory Exam Respiratory Exam: Clear to Ausculation Bilateral. absent: Rales, Rhonchi, Wheezes - Cardiovascular Exam Cardiovascular Exam: REGULAR RHYTHM, +S1, +S2 - GI/Abdominal Exam GI & Abdominal Exam: Soft, Normal Bowel Sounds. absent: Tenderness - Extremities Exam Extremities Exam: Tenderness Additional comments: Chronic venous stasis changes b/l LE Right lateral malleolar wound is still open but not actively draining purulent fluid. Left forearm swelling just distal to the elbow with erythema - Neurological Exam Neurological Exam: Alert, Awake, Oriented x3 - Skin Skin Exam: Dry, Warm Assessment and Plan - Assessment and Plan (Free Text) Plan: LE Cellulitis with ulceration * 2-3 cm superficial abscess on lateral aspect of R. LE * Needle aspiration of lesion was done at bedside 03/18/17 * Wound culture: Serratia Marcescens * Will start Cipro due to culture sensitivity and CATIE value * Zosyn 3.375 mg IVPB Q6 - discontinued 03/19 * Start Cipro 400mg IVPB Q12 hours (started 8/6 PM) * Aspirin 81 mg PO daily * f/u X ray to rule out osteomyelitis - X ray showed diffuse soft tissue swelling throughout soft tissues of right calf which may represent underlying cellulitis and ulceration and/or soft tissue swelling at lateral malleolus of right ankle. * Morphine 1mg IVP Q6 prn severe pain * Morphine 0.5 mg IVP Q6 prn moderate pain * Afebrile, no WBC * Dr. Martins, vascular surgery consulted, help appreciated - * CTA with femoral runoff revealed no evidence of osteomyelitis MRI of right leg/ankle 03/22/17: Soft tissue edema present in the lateral ankle characterized by high signal and fluid intensity sequences consistent with cellulitis as seen on CT. At that level, there is a 1.4 x 1.0 centimeter ovoid focus of signal abnormality demonstrating heterogeneous increased T2 signal, increased STIR signal, and patchy post-contrast enhancement which may represent possible phlegmon and or developing abscess collection. No findings to suggest acute osteomyelitis within the distal tibia and fibula * Podiatry is following the patient but they do not recommend I&D at this time as of 03/27/17 Diabetes Mellitus * Newly diagnosed with Hemoglobin A1C 7 * Regular ISS * Metformin 500 mg PO BID started on 03/27 * Accuchecks qAC&HS DVT * D-dimer elevated * No clinical signs of PE (no SOB, not tachycardic) * Dopplers revealed Right infrapopliteal DVT * Lovenox 70mg SC Q12H Initial stages of Iron deficiency anemia * Iron studies: Total iron 58, TIBC 319, %saturation 18, ferritin 80.3 * Ferrous sulfate 325 mg PO daily started 03/23 Constipation * On Colace 100 mg PO TID Superficial phlebitis left forearm * Likely due to prior IV placement * Report read superficial phlebitis of left cephalic vein at the forearm * Alternate ice packs with warm compress PPX * On Therapeutic Lovenox for DVT but switched to Eliquis 10 mg PO BID starting in the evening * Pepcid 20mg PO QD * Diabetic diet 03/20: senior software development manager was notified about trying to get authorization for oral anticoagulant Xarelto for future discharge planning 03/21: Need to follow up report of MRI of right leg/ankle 03/22: CTA with femoral runoff reveals no peripheral disease. Tibial vessels on the peroneal artery unremarkable in both legs. 03/23: MRI report reveals no osteomyelitis but possible phlegmon vs developing abscess collection. Surgery team was notified of this finding and asked to evaluate this new finding. 03/24: Patient seen by podiatry who will be monitoring her in the hospital. Attending was able to secure Eliquis instead of Xarelto for patient to receive as an outpatient. church worker made aware and was able to follow through for senior living availability of the drug. 03/27: Dr. Cates recommends continuing the Cipro for 7-10 more days. Patient was switched to Elliquis 10 mg PO BID this evening for DVT treatment. Patient will require 7 days at this dose and then will switch to 5 mg PO BID thereafter. Patient has applied for [facility] and is pending medicaid per social contact worker. 03/28: Report for left forearm doppler revealed superficial phlebitis of the left cephalic vein at the forearm. Monitor for now. Patient is making improvement in regards to her PT. Case DW Dr. Roberto Brown PGY-1 <George Mejia - Last Filed: 05/01/17 15:50> Objective - Vital Signs/Intake and Output Vital Signs (last 24 hours): Temp Pulse Resp BP Pulse Ox 98.4 F 67 20 94/56 L 96 03/30/17 07:46 03/30/17 07:46 03/30/17 07:46 03/30/17 07:46 03/30/17 07:46 - Labs Labs: 03/30/17 06:51 03/30/17 06:50 PT 12.7 SECONDS (9.7-12.2) H 03/27/17 06:16 INR 1.1 03/27/17 06:16 APTT 39 SECONDS (21-34) H 03/27/17 06:16 Attending/Attestation - Attestation I have personally seen and examined this patient.: Yes I have fully participated in the care of the patient.: Yes I have reviewed all pertinent clinical information, including history, physical exam and plan: Yes Notes (Text): LE Cellulitis with ulceration Elevated DDIMER
[2017-03-29] MEDS: Ciprofloxacin 400mg/200ml D5W 400 MG/200 ML BAG IVPB SCH (02:16)
[2017-03-29 06:51] LABS: ALKALINE PHOSPHATASE 59 U/L (38-126); ALT/SGPT 31 U/L (9-52); AST/SGOT 27 U/L (14-36); BILIRUBIN,TOTAL 0.2 mg/dL (0.2-1.3); BLOOD UREA NITROGEN 24 mg/dL (7-17); CALCIUM 9.3 mg/dl (8.6-10.4); CARBON DIOXIDE 24 mmol/L (22-30); CHLORIDE 100 mmol/L (98-107); GFR AFRICAN-AMERICAN > 60; GLUCOSE,RANDOM 89 mg/dL (65-105); POTASSIUM 4.1 mmol/L (3.6-5.2); SODIUM 135 mmol/L (132-148)
[2017-03-29 07:20] LABS: BASO # 0.1 K/uL (0.0-0.2); BASO % 0.5 % (0.0-2.0); EOS # 0.2 K/uL (0.0-0.7); EOS % 2.2 % (0.0-4.0); HEMATOCRIT 32.4 % (34.0-47.0); LYMPH # 2.6 K/uL (1.0-4.3); LYMPH % 27.7 % (20.0-40.0); MEAN CELL VOLUME 77.6 fL (81.0-99.0); MEAN CORPUSCULAR HGB CONC 32.2 g/dL (33.0-37.0); MEAN PLATELET VOLUME 8.4 fL (7.2-11.7); MONO # 0.8 K/uL (0.0-0.8); MONO % 8.8 % (0.0-10.0); NRBC % 0.1 % (0.0-2.0); RED CELL DISTRIBUTION WIDTH 14.6 % (11.5-14.5); WHITE BLOOD COUNT 9.3 K/uL (4.8-10.8)
[2017-03-29] MEDS: (Novolin R) Insulin Human Regular 100 units/ml vial SC SCH ×4 (08:01→21:34)
--- NOTE | 2017-03-29 09:26 | CP.PCM.PN ---
Subjective - Date & Time of Evaluation Date of Evaluation: 03/29/17 Time of Evaluation: 09:26 - Subjective Subjective: 81 year old female was seen resting comfortably at bedside regarding right lateral leg ulcerations.She admits to some pain on palpation of the ulceration site. She denies any acute overnight events or any further pedal complaints at this time. Patient denies any n/v/f/c/sob/cp. Objective - Vital Signs/Intake and Output Vital Signs (last 24 hours): Temp Pulse Resp BP Pulse Ox 97.7 F 60 20 98/62 L 99 03/29/17 08:08 03/29/17 08:08 03/29/17 08:08 03/29/17 08:08 03/29/17 08:08 Intake and Output: 03/29/17 03/29/17 06:59 18:59 Intake Total 700 Balance 700 - Medications Medications: Current Medications Apixaban (Eliquis) 10 mg PO BID [facility] Last Admin: 03/28/17 17:34 Dose: 10 mg Aspirin (Aspirin Chewable) 81 mg PO DAILY [facility] Last Admin: 03/28/17 09:59 Dose: 81 mg Docusate Sodium (Colace) 100 mg PO TID [facility] Last Admin: 03/28/17 17:34 Dose: 100 mg Famotidine (Pepcid) 20 mg PO DAILY [facility] Last Admin: 03/28/17 09:59 Dose: 20 mg Ferrous Sulfate (Feosol) 325 mg PO DAILY [facility] Last Admin: 03/28/17 09:59 Dose: 325 mg Ciprofloxacin (Cipro 400mg/200ml Dsw) 400 mg in 200 mls @ 133 mls/hr IVPB Q12H [facility] Last Admin: 03/29/17 02:16 Dose: 133 mls/hr Insulin Human Regular (Novolin R) 0 unit SC ACHS [facility] PRN Reason: Protocol Last Admin: 03/29/17 08:01 Dose: Not Given Lisinopril (Zestril) 2.5 mg PO DAILY [facility] Last Admin: 03/28/17 10:00 Dose: Not Given Metformin HCl (Glucophage) 500 mg PO BIDBS [facility] Last Admin: 03/29/17 08:10 Dose: 500 mg Morphine Sulfate (Morphine) 0.5 mg IVP Q6 PRN PRN Reason: Pain, moderate (4-7) Last Admin: 03/23/17 09:52 Dose: 0.5 mg Morphine Sulfate (Morphine) 1 mg IV Q6 PRN PRN Reason: Pain, severe (8-10) Last Admin: 03/21/17 02:14 Dose: 1 mg Mupirocin (Bactroban Ointment) 0 gm TOP BID [facility] Last Admin: 03/28/17 17:34 Dose: 1 applic Rosuvastatin Calcium (Crestor) 5 mg PO HS [facility] Last Admin: 03/28/17 21:33 Dose: 5 mg - Labs Labs: 03/29/17 06:22 03/29/17 06:22 PT 12.7 SECONDS (9.7-12.2) H 03/27/17 06:16 INR 1.1 03/27/17 06:16 APTT 39 SECONDS (21-34) H 03/27/17 06:16 - Constitutional Appears: Non-toxic, No Acute Distress - Extremities Exam Additional comments: Right lower extremity focused exam: Vasc: DP pulses palpable 2/4. PT pulses palpable 1/4. CFT < 3 seconds to all digits. Mild non-pitting edema noted to RLE at level of calf and ankle. No increase in warmth noted to periwound area. Neuro: Epicritic and protective sensation grossly intact. Derm: Ulceration measuring approximately 0.5 cm x 0.5 cm x 0.2 cm noted to lateral aspect of right lower leg, proximal to lateral malleolus. No drainage, purulence, malodor or other clinical signs of infection noted at this time. No periwound erythema appreciated. Ulcer is noted to have a mixed fibrogranular base with no undermining, tunneling, fluctuance noted. Hemosiderin deposits noted mediallly and distal to ulceration. Ortho: Minimal POP noted to ulcer site - Neurological Exam Neurological Exam: Alert, Awake, Oriented x3 - Psychiatric Exam Psychiatric exam: Normal Affect, Normal Mood Assessment and Plan - Assessment and Plan (Free Text) Assessment: 81 year old female with right lateral leg ulceration secondary to right leg cellulitis Plan: Patient seen and evaluated at bedside Discussed with attending Dr. Brewer Charts, labs and vitals reviewed; afebrile Patient wound dressed with gauze and kerlix Patient to continue IV abx per ID Per Dr. Brewer patient is stable from podiatric standpoint Patient to f/u with Dr. Brewer or podiatry clinic upon D/C
--- NOTE | 2017-03-29 11:47 | VASCLAB ---
PROCEDURE: Left Upper Extremity Venous Duplex Exam HISTORY: Left Arm Edema PRIORS: None. TECHNIQUE: Left upper extremity, internal jugular, subclavian, axillary, brachial, ulnar, radial, basilic and upper cephalic veins were evaluated. Flow was assessed with color Doppler, compressibility, assessment of phasic flow and augmentation response. Report prepared by JAXSON Negron FINDINGS: LEFT: 1. Internal Jugular: 1.1. Compressibility - Fully compressible: Thrombus - None : Flow - Phasic: Augmentation -Normal: Reflux - None. 2. Subclavian: 2.1. Compressibility - Fully compressible: Thrombus - None : Flow - Phasic: Augmentation -Normal: Reflux - None. 3. Axillary: 3.1. Compressibility - Fully compressible: Thrombus - None : Flow - Phasic: Augmentation -Normal: Reflux - None. 4. Brachial: 4.1. Compressibility - Fully compressible: Thrombus - None: Flow - Phasic: Augmentation -Normal: Reflux - None. 5. Ulnar: 5.1. Compressibility - Fully compressible: Thrombus - None: Flow - Phasic: Augmentation -Normal: Reflux - None. 6. Radial: 6.1. Compressibility - Fully compressible: Thrombus - None: Flow - Phasic: Augmentation - Normal: Reflux - None. 7. Cephalic: 7.1. Compressibility - Incompressible: Thrombus - Acute: Flow - Absent : Augmentation -None: Reflux - None. 8. Basilic: 8.1. Compressibility - Fully compressible: Thrombus - None: Flow - Phasic: Augmentation -Normal: Reflux - None. OTHER FINDINGS: Findings were reported by the certified cytotechnologist, to Freeman Monet on 03/28/17 at 9:36 a.m. IMPRESSION: Left: 1. No evidence of deep vein thrombosis of the left upper extremity. 2. Superficial phlebitis of the left cephalic vein, at the forearm level. Normal venous flow noted in the right internal jugular and right subclavian veins.
--- NOTE | 2017-03-29 20:13 | CP.PCM.PN ---
<Ran Brown - Last Filed: 03/29/17 20:10> Subjective - Date & Time of Evaluation Date of Evaluation: 03/29/17 Time of Evaluation: 07:40 - Subjective Subjective: PGY-[address] Mejia Patient seen and examined at bedside. Patient reports slight pain in the right lower extremity and swelling at the left forearm. Patient's last bowel movement was yesterday. Patient denies fevers, chills, headache, dizziness, chest pain, palpitations, SOB, abdominal pain, dysuria. Objective - Vital Signs/Intake and Output Vital Signs (last 24 hours): Temp Pulse Resp BP Pulse Ox 97 F L 68 20 99/61 L 97 03/29/17 15:00 03/29/17 15:00 03/29/17 15:00 03/29/17 15:00 03/29/17 15:00 Intake and Output: 03/29/17 03/30/17 18:59 06:59 Intake Total 360 Balance 360 - Medications Medications: Current Medications Apixaban (Eliquis) 10 mg PO BID [facility] Last Admin: 03/29/17 17:57 Dose: 10 mg Aspirin (Aspirin Chewable) 81 mg PO DAILY [facility] Last Admin: 03/29/17 11:20 Dose: 81 mg Docusate Sodium (Colace) 100 mg PO TID [facility] Last Admin: 03/29/17 17:57 Dose: 100 mg Famotidine (Pepcid) 20 mg PO DAILY [facility] Last Admin: 03/29/17 11:20 Dose: 20 mg Ferrous Sulfate (Feosol) 325 mg PO DAILY [facility] Last Admin: 03/29/17 11:20 Dose: 325 mg Ciprofloxacin (Cipro 400mg/200ml Dsw) 400 mg in 200 mls @ 133 mls/hr IVPB Q12H [facility] Last Admin: 03/29/17 02:16 Dose: 133 mls/hr Insulin Human Regular (Novolin R) 0 unit SC ACHS [facility] PRN Reason: Protocol Last Admin: 03/29/17 17:58 Dose: Not Given Lisinopril (Zestril) 2.5 mg PO DAILY [facility] Last Admin: 03/29/17 11:21 Dose: Not Given Metformin HCl (Glucophage) 500 mg PO BIDBS [facility] Last Admin: 03/29/17 17:57 Dose: 500 mg Morphine Sulfate (Morphine) 0.5 mg IVP Q6 PRN PRN Reason: Pain, moderate (4-7) Last Admin: 03/23/17 09:52 Dose: 0.5 mg Morphine Sulfate (Morphine) 1 mg IV Q6 PRN PRN Reason: Pain, severe (8-10) Last Admin: 03/21/17 02:14 Dose: 1 mg Mupirocin (Bactroban Ointment) 0 gm TOP BID [facility] Last Admin: 03/29/17 17:56 Dose: 1 applic Rosuvastatin Calcium (Crestor) 5 mg PO HS [facility] Last Admin: 03/28/17 21:33 Dose: 5 mg - Labs Labs: 03/29/17 06:22 03/29/17 06:22 PT 12.7 SECONDS (9.7-12.2) H 03/27/17 06:16 INR 1.1 03/27/17 06:16 APTT 39 SECONDS (21-34) H 03/27/17 06:16 - Constitutional Appears: No Acute Distress - Head Exam Head Exam: ATRAUMATIC, NORMAL INSPECTION, NORMOCEPHALIC - Eye Exam Eye Exam: EOMI, PERRL - ENT Exam ENT Exam: Mucous Membranes Moist - Respiratory Exam Respiratory Exam: Clear to Ausculation Bilateral. absent: Rales, Rhonchi, Wheezes - Cardiovascular Exam Cardiovascular Exam: REGULAR RHYTHM, +S1, +S2 - GI/Abdominal Exam GI & Abdominal Exam: Soft, Normal Bowel Sounds. absent: Tenderness - Extremities Exam Extremities Exam: Tenderness Additional comments: chronic venous stasis changes bilateral lower extremities Right lateral malleolar wound is beginning to close off and is not actively draining fluid. Left proximal forearm swelling but less erythema than the day prior. - Neurological Exam Neurological Exam: Alert, Awake, Oriented x3 - Skin Skin Exam: Dry, Warm Assessment and Plan - Assessment and Plan (Free Text) Plan: LE Cellulitis with ulceration * 2-3 cm superficial abscess on lateral aspect of R. LE * Needle aspiration of lesion was done at bedside 03/18/17 * Wound culture: Serratia Marcescens * Will start Cipro due to culture sensitivity and CATIE value * Zosyn 3.375 mg IVPB Q6 - discontinued 03/19 * Start Cipro 400mg IVPB Q12 hours (started 86 PM) * Aspirin 81 mg PO daily * f/u X ray to rule out osteomyelitis - X ray showed diffuse soft tissue swelling throughout soft tissues of right calf which may represent underlying cellulitis and ulceration and/or soft tissue swelling at lateral malleolus of right ankle. * Morphine 1mg IVP Q6 prn severe pain * Morphine 0.5 mg IVP Q6 prn moderate pain * Afebrile, no WBC * Dr. Martins, vascular surgery consulted, help appreciated - * CTA with femoral runoff revealed no evidence of osteomyelitis MRI of right leg/ankle 03/22/17: Soft tissue edema present in the lateral ankle characterized by high signal and fluid intensity sequences consistent with cellulitis as seen on CT. At that level, there is a 1.4 x 1.0 centimeter ovoid focus of signal abnormality demonstrating heterogeneous increased T2 signal, increased STIR signal, and patchy post-contrast enhancement which may represent possible phlegmon and or developing abscess collection. No findings to suggest acute osteomyelitis within the distal tibia and fibula * Podiatry is following the patient but they do not recommend I&D at this time as of 03/27/17 Diabetes Mellitus * Newly diagnosed with Hemoglobin A1C 7 * Regular ISS * Metformin 500 mg PO BID started on 03/27 * Accuchecks qAC&HS DVT * D-dimer elevated * No clinical signs of PE (no SOB, not tachycardic) * Dopplers revealed Right infrapopliteal DVT * Lovenox 70mg SC Q12H Initial stages of Iron deficiency anemia * Iron studies: Total iron 58, TIBC 319, %saturation 18, ferritin 80.3 * Ferrous sulfate 325 mg PO daily started 03/23 Constipation * On Colace 100 mg PO TID Superficial phlebitis left forearm * Likely due to prior IV placement * Report read superficial phlebitis of left cephalic vein at the forearm * Alternate ice packs with warm compress PPX * On Therapeutic Lovenox for DVT but switched to Eliquis 10 mg PO BID starting in the evening * Pepcid 20mg PO QD * Diabetic diet 03/20: product mgmt dev manager was notified about trying to get authorization for oral anticoagulant Xarelto for future discharge planning 03/21: Need to follow up report of MRI of right leg/ankle 03/22: CTA with femoral runoff reveals no peripheral disease. Tibial vessels on the peroneal artery unremarkable in both legs. 03/23: MRI report reveals no osteomyelitis but possible phlegmon vs developing abscess collection. Surgery team was notified of this finding and asked to evaluate this new finding. 03/24: Patient seen by podiatry who will be monitoring her in the hospital. Attending was able to secure Eliquis instead of Xarelto for patient to receive as an outpatient. front desk worker made aware and was able to follow through for ferry terminal agent availability of the drug. 03/27: Dr. Cates recommends continuing the Cipro for 7-10 more days. Patient was switched to Elliquis 10 mg PO BID this evening for DVT treatment. Patient will require 7 days at this dose and then will switch to 5 mg PO BID thereafter. Patient has applied for [facility] and is pending medicaid per social sciences chair. 03/28: Report for left forearm doppler revealed superficial phlebitis of the left cephalic vein at the forearm. Monitor for now. Patient is making improvement in regards to her PT. 03/29: Patient was set for discharge today with appropriate prescriptions and follow up plan. However, patient's family was unable to come and pick her up and pay the co-pay for her prescriptions today. Case DW Dr. Roberto Brown PGY-1 <George Mejia - Last Filed: 05/01/17 15:51> Objective - Vital Signs/Intake and Output Vital Signs (last 24 hours): Temp Pulse Resp BP Pulse Ox 98.4 F 67 20 94/56 L 96 03/30/17 07:46 03/30/17 07:46 03/30/17 07:46 03/30/17 07:46 03/30/17 07:46 - Labs Labs: 03/30/17 06:51 03/30/17 06:50 PT 12.7 SECONDS (9.7-12.2) H 03/27/17 06:16 INR 1.1 03/27/17 06:16 APTT 39 SECONDS (21-34) H 03/27/17 06:16 Attending/Attestation - Attestation I have personally seen and examined this patient.: Yes I have fully participated in the care of the patient.: Yes I have reviewed all pertinent clinical information, including history, physical exam and plan: Yes Notes (Text): LE Cellulitis with ulceration
[2017-03-30] MEDS: Ciprofloxacin 400mg/200ml D5W 400 MG/200 ML BAG IVPB SCH (02:46)
[2017-03-30 07:06] LABS: BASO % 0.5 % (0.0-2.0); EOS # 0.2 K/uL (0.0-0.7); EOS % 2.5 % (0.0-4.0); HEMATOCRIT 33.2 % (34.0-47.0); LYMPH # 2.6 K/uL (1.0-4.3); LYMPH % 31.9 % (20.0-40.0); MEAN CELL VOLUME 77.1 fL (81.0-99.0); MEAN CORPUSCULAR HEMOGLOBIN 25.6 pg (27.0-31.0); MEAN CORPUSCULAR HGB CONC 33.2 g/dL (33.0-37.0); MEAN PLATELET VOLUME 8.1 fL (7.2-11.7); MONO # 0.6 K/uL (0.0-0.8); RED CELL DISTRIBUTION WIDTH 14.3 % (11.5-14.5)
[2017-03-30 07:10] LABS: CHLORIDE 100 mmol/L (98-107); POTASSIUM 4.1 mmol/L (3.6-5.2); SODIUM 138 mmol/L (132-148)
[2017-03-30 07:12] LABS: AST/SGOT 25 U/L (14-36); BILIRUBIN,TOTAL 0.4 mg/dL (0.2-1.3); CARBON DIOXIDE 25 mmol/L (22-30); GFR AFRICAN-AMERICAN > 60
[2017-03-30 07:13] LABS: ALB/GLOB RATIO 0.9 (1.0-2.1); ALKALINE PHOSPHATASE 61 U/L (38-126); ALT/SGPT 32 U/L (9-52); BLOOD UREA NITROGEN 22 mg/dL (7-17); CALCIUM 9.4 mg/dl (8.6-10.4); GLUCOSE,RANDOM 98 mg/dL (65-105); TOTAL PROTEIN 7.4 g/dL (6.3-8.3)
[2017-03-30] MEDS: (Novolin R) Insulin Human Regular 100 units/ml vial SC SCH ×2 (07:35→11:49)
[2017-03-30 07:47] VITALS: BP 94/56; PULSE 67; TEMP 98.4; O2SAT 96
--- NOTE | 2017-03-30 12:03 | CP.PCM.PN ---
Subjective - Date & Time of Evaluation Date of Evaluation: 03/30/17 Time of Evaluation: 12:03 - Subjective Subjective: 81 year old female was seen resting comfortably at bedside regarding right lateral leg ulcerations. She admits that her pain is better. She denies any acute overnight events or any further pedal complaints at this time. Patient denies any n/v/f/c/sob/cp. Objective - Vital Signs/Intake and Output Vital Signs (last 24 hours): Temp Pulse Resp BP Pulse Ox 98.4 F 67 20 94/56 L 96 03/30/17 07:46 03/30/17 07:46 03/30/17 07:46 03/30/17 07:46 03/30/17 07:46 Intake and Output: 03/30/17 03/30/17 06:59 18:59 Intake Total 500 Balance 500 - Medications Medications: Current Medications Apixaban (Eliquis) 10 mg PO BID [facility] Last Admin: 03/30/17 09:26 Dose: 10 mg Aspirin (Aspirin Chewable) 81 mg PO DAILY [facility] Last Admin: 03/30/17 09:26 Dose: 81 mg Docusate Sodium (Colace) 100 mg PO TID [facility] Last Admin: 03/30/17 09:26 Dose: 100 mg Famotidine (Pepcid) 20 mg PO DAILY [facility] Last Admin: 03/30/17 09:26 Dose: 20 mg Ferrous Sulfate (Feosol) 325 mg PO DAILY [facility] Last Admin: 03/30/17 09:26 Dose: 325 mg Ciprofloxacin (Cipro 400mg/200ml Dsw) 400 mg in 200 mls @ 133 mls/hr IVPB Q12H [facility] Last Admin: 03/30/17 02:46 Dose: 133 mls/hr Insulin Human Regular (Novolin R) 0 unit SC ACHS [facility] PRN Reason: Protocol Last Admin: 03/30/17 11:49 Dose: Not Given Lisinopril (Zestril) 2.5 mg PO DAILY [facility] Last Admin: 03/30/17 09:27 Dose: Not Given Metformin HCl (Glucophage) 500 mg PO BIDBS [facility] Last Admin: 03/30/17 08:24 Dose: 500 mg Morphine Sulfate (Morphine) 0.5 mg IVP Q6 PRN PRN Reason: Pain, moderate (4-7) Last Admin: 03/23/17 09:52 Dose: 0.5 mg Morphine Sulfate (Morphine) 1 mg IV Q6 PRN PRN Reason: Pain, severe (8-10) Last Admin: 03/21/17 02:14 Dose: 1 mg Mupirocin (Bactroban Ointment) 0 gm TOP BID [facility] Last Admin: 03/30/17 09:26 Dose: Not Given Rosuvastatin Calcium (Crestor) 5 mg PO HS [facility] Last Admin: 03/29/17 21:27 Dose: 5 mg - Labs Labs: 03/30/17 06:51 03/30/17 06:50 PT 12.7 SECONDS (9.7-12.2) H 03/27/17 06:16 INR 1.1 03/27/17 06:16 APTT 39 SECONDS (21-34) H 03/27/17 06:16 - Constitutional Appears: Well, Non-toxic, No Acute Distress - Extremities Exam Additional comments: Right lower extremity focused exam: Vasc: DP pulses palpable 2/4. PT pulses palpable 1/4. CFT < 3 seconds to all digits. Mild non-pitting edema noted to RLE at level of calf and ankle. No increase in warmth noted to periwound area. Neuro: Epicritic and protective sensation grossly intact. Derm: Ulceration measuring approximately 0.5 cm x 0.5 cm x 0.2 cm noted to lateral aspect of right lower leg, proximal to lateral malleolus. No drainage, purulence, malodor or other clinical signs of infection noted at this time. No periwound erythema appreciated. Ulcer is noted to have a mixed fibrogranular base with no undermining, tunneling, fluctuance noted. Hemosiderin deposits noted mediallly and distal to ulceration. Ortho: Minimal POP noted to ulcer site - Neurological Exam Neurological Exam: Alert, Awake, Oriented x3 - Psychiatric Exam Psychiatric exam: Normal Affect, Normal Mood Assessment and Plan - Assessment and Plan (Free Text) Assessment: 81 year old female with right lateral leg ulceration secondary to right leg cellulitis Plan: Patient seen and evaluated at bedside Discussed with attending Dr. Brewer Charts, labs and vitals reviewed; afebrile Patient wound dressed with xeroform, gauze and kerlix Patient to continue IV abx per ID Per Dr. Brewer patient is stable from podiatric standpoint Daily dressing changes with DSD Patient to f/u with podiatry clinic upon D/C
[2017-03-30] MEDS ORDERED: Pneumococcal 23-Valent Vaccine IM ONE (13:13)
--- NOTE | 2017-03-30 14:49 | CP.PCM.DIS ---
<Ran Brown - Last Filed: 03/30/17 21:34> Provider - Provider Date of Admission: 03/17/17 18:22 Attending physician: George Mejia MD Time Spent in preparation of Discharge (in minutes): 35 Diagnosis - Discharge Diagnosis (1) Cellulitis Status: Acute (2) Newly diagnosed diabetes Status: Acute (3) Deep vein blood clot of right lower extremity Status: Acute (4) Leg swelling Status: Acute (5) Iron (Fe) deficiency anemia Status: Acute (6) Constipation Status: Acute (7) Superficial phlebitis of arm Status: Acute (8) Prophylactic measure Status: Acute Hospital Course - Lab Results Lab Results: Micro Results 03/20/17 15:30 Ankle - Right Gram Stain - Final 03/20/17 15:30 Ankle - Right Wound Culture - Final Serratia Marcescens 03/17/17 20:15 Abscess - Leg-Right Gram Stain - Final 03/17/17 20:15 Abscess - Leg-Right Wound Culture - Final Serratia Marcescens 03/17/17 20:15 Skin - Abscess Gram Stain - Final 03/17/17 20:15 Skin - Abscess Wound Culture - Final Serratia Marcescens Most Recent Lab Values WBC 8.0 K/uL (4.8-10.8) 03/30/17 06:51 RBC 4.31 Mil/uL (3.80-5.20) 03/30/17 06:51 Hgb 11.0 g/dL (11.0-16.0) 03/30/17 06:51 Hct 33.2 % (34.0-47.0) L 03/30/17 06:51 MCV 77.1 fL (81.0-99.0) L 03/30/17 06:51 MCH 25.6 pg (27.0-31.0) L 03/30/17 06:51 MCHC 33.2 g/dL (33.0-37.0) 03/30/17 06:51 RDW 14.3 % (11.5-14.5) 03/30/17 06:51 Plt Count 316 K/uL (130-400) 03/30/17 06:51 MPV 8.1 fL (7.2-11.7) 03/30/17 06:51 Neut % (Auto) 57.1 % (50.0-75.0) 03/30/17 06:51 Lymph % (Auto) 31.9 % (20.0-40.0) 03/30/17 06:51 Montague % (Auto) 8.0 % (0.0-10.0) 03/30/17 06:51 Eos % (Auto) 2.5 % (0.0-4.0) 03/30/17 06:51 Baso % (Auto) 0.5 % (0.0-2.0) 03/30/17 06:51 Neut # 4.6 K/uL (1.8-7.0) 03/30/17 06:51 Lymph # 2.6 K/uL (1.0-4.3) 03/30/17 06:51 Montague # 0.6 K/uL (0.0-0.8) 03/30/17 06:51 Eos # 0.2 K/uL (0.0-0.7) 03/30/17 06:51 Baso # 0.0 K/uL (0.0-0.2) 03/30/17 06:51 PT 12.7 SECONDS (9.7-12.2) H 03/27/17 06:16 INR 1.1 03/27/17 06:16 APTT 39 SECONDS (21-34) H 03/27/17 06:16 D-Dimer, Quantitative 265 ng/mlDDU (0-243) H 03/17/17 17:34 Sodium 138 mmol/L (132-148) 03/30/17 06:50 Potassium 4.1 mmol/L (3.6-5.2) 03/30/17 06:50 Chloride 100 mmol/L (98-107) 03/30/17 06:50 Carbon Dioxide 25 mmol/L (22-30) 03/30/17 06:50 Anion Gap 18 (10-20) 03/30/17 06:50 BUN 22 mg/dL (7-17) H 03/30/17 06:50 Creatinine 0.8 MG/DL (0.7-1.2) 03/30/17 06:50 Est GFR ( Amer) > 60 03/30/17 06:50 Est GFR (Non-Af Amer) > 60 03/30/17 06:50 POC Glucose (mg/dL) 142 mg/dL (65-110) H 03/30/17 11:14 Random Glucose 98 mg/dL (65-105) 03/30/17 06:50 Hemoglobin A1c 7.0 % (4.2-6.5) H 03/19/17 08:05 Calcium 9.4 mg/dl (8.6-10.4) 03/30/17 06:50 Phosphorus 4.3 mg/dL (2.5-4.5) 03/20/17 07:00 Magnesium 1.9 mg/dL (1.6-2.3) 03/20/17 07:00 Iron 58 ug/dL (37-170) 03/22/17 07:40 TIBC 319 ug/dL (250-450) 03/22/17 07:40 % Saturation 18 (20-55) L 03/22/17 07:40 Ferritin 80.3 ng/mL 03/22/17 07:40 Total Bilirubin 0.4 mg/dL (0.2-1.3) 03/30/17 06:50 AST 25 U/L (14-36) 03/30/17 06:50 ALT 32 U/L (9-52) 03/30/17 06:50 Alkaline Phosphatase 61 U/L (38-126) 03/30/17 06:50 Total Creatine Kinase 33 U/L (30-135) 03/26/17 10:33 CK-MB (Mass) 0.42 ng/mL (0.0-3.38) 03/26/17 10:33 Troponin I, Quant < 0.0120 ng/mL (0.00-0.120) 03/26/17 10:33 Total Protein 7.4 g/dL (6.3-8.3) 03/30/17 06:50 Albumin 3.6 g/dL (3.5-5.0) 03/30/17 06:50 Globulin 3.9 gm/dL (2.2-3.9) 03/30/17 06:50 Albumin/Globulin Ratio 0.9 (1.0-2.1) L 03/30/17 06:50 Urine Color Colorless (YELLOW) 03/17/17 18:23 Urine Clarity Clear (Clear) 03/17/17 18:23 Urine pH 7.0 (5.0-8.0) 03/17/17 18:23 Ur Specific Poplar 1.001 (1.003-1.030) L 03/17/17 18:23 Urine Protein Negative mg/dL (NEGATIVE) 03/17/17 18:23 Urine Glucose (UA) Normal mg/dL (Normal) 03/17/17 18:23 Urine Ketones Negative mg/dL (NEGATIVE) 03/17/17 18:23 Urine Blood 1+ (NEGATIVE) H 03/17/17 18:23 Urine Nitrate Negative (NEGATIVE) 03/17/17 18:23 Urine Bilirubin Negative (NEGATIVE) 03/17/17 18:23 Urine Urobilinogen Normal mg/dL (0.2-1.0) 03/17/17 18:23 Ur Leukocyte Esterase Neg Toni/uL (Negative) 03/17/17 18:23 Urine WBC (Auto) < 1 /hpf (0-5) 03/17/17 18:23 Urine RBC (Auto) 4 /hpf (0-3) H 03/17/17 18:23 Ur Squamous Epith Cells 1 /hpf (0-5) 03/17/17 18:23 - Hospital Course Hospital Course: On admission: "81 y/o F presents to the ER with a 3 weeks history of R. leg pain for 3 week duration. Nothing makes the pain better. Walking makes the pain worse. She describes the pain as throbbing in nature. It radiates up the leg to the mid thigh. At its worst she rates the pain as a 10/10 in severity. The pain has been constant since it began. It is associated with a fever yesterday. She also states that her urine output has been more frequent lately. She denies cough, N/ V, constipation, diarrhea, cough, diaphoresis, hemoptysis, weakness, dizziness, visual changes, changes in her speech, confusion, TAVERA, CP, abdominal pain, rash or blood in her urine. She denies sick contacts. She recently took a trip to [place], [place]. Patient is visiting from [facility]. " Hospital Course: Patient admitted for right leg cellulitis with abscess. Abscess drained with needle aspiration in the ED, cultured and grew Serratia sensitive to Cipro. Right infrapopliteal DVT found on doppler. Patient was started on therapeutic Lovenox which was then switched to therapeutic Eliquis on the evening of . Vascular surgeon Dr. Lyles was consulted. CTA with femoral runoff was performed which showed no peripheral disease. Tibial vessels on the peroneal artery unremarkable in both legs. MRI of the right leg revealed possible phlegmon vs developing abscess as well as no evidence of osteomyelitis. Podiatry Dr. Brewer consulted. Podiatry team has been managing the wound dressings but they recommended no abscess I&D. Newly diagnosed diabetes on this admission with an elevated hemoglobin A1C of 7. Patient discharged with a rolling walker as well as a coupon for a free 1 month supply of Eliquis. Patient will need assistance in qualifying for more Eliquis after that time period, but patient was instructed to follow up in the clinic for assistance. It is recommended that the patient do outpatient workup for early stages of iron deficiency anemia. Patient had superficial phlebitis of left proximal forearm which has slowly been improving. This is a summary of the hospital course. For more information, consult the medical records. 1) Please follow up with the [facility] in the [facility]. Their number will be provided in your paperwork. Please see them within 1 week of discharge. 2) You will need to take the antibiotic Ciprofloxacin 500 mg by mouth every 12 hours, which means twice daily. One dose in the morning and one in the evening. You will need to take this medication for 3 days. 3) For your diabetes, you will need to take Metformin 500 mg by mouth twice a day. 4) To protect your kidney, you will need to take Lisinopril 2.5 mg by mouth once a day. This is a blood pressure medication which can protect the kidneys in people with diabetes. 5) Since you have diabetes, you will also need to take Rosuvastatin 5 mg by mouth once in the evening before bedtime. 6) For the blood clot in the back of your right knee, you will need to take Eliquis. It will come in 5 mg for each tablet. For the first 7 days, you will need to take 10 mg (meaning two pills) two times a day. We have started the medication on Monday evening which was 03/27/17. So continue taking 10 mg twice a day until next Monday morning (04/03/17). Next Monday morning will be the last time you should take 10 mg. Starting Monday evening, take only 5 mg twice a day. 7) You will need to apply for more Eliquis for after the prescription finishes. The social and political studies professor and the people in the clinic downstairs can assist you with this process. 8) For your safety, please use the walker that we provided when you move around at home. 9) They have a Podiatry Clinic downstairs in the [facility]. They can help you with care for your leg wound. 10) If you have any emergency symptoms such as fainting or chest pain, please return to the emergency room. 1) Por favor, siga con el [facility] en el [facility]. Zuluaga nmero ser proporcionado en zuluaga papeleo. Por favor, verlos dentro de 1 semana de citlaly. 2) Usted tendr que yoan el antibitico Ciprofloxacin 500 mg por va oral cada 12 horas, lo que significa dos veces al da. Mitzi dosis en la maana y otra en la noche. Tendr que yoan carol medicamento chidi 3 hawkins. 3) Para zuluaga diabetes, usted necesitar yoan Metformin 500 mg por va oral dos veces al da. 4) Para proteger zuluaga rin, deber yoan Lisinopril 2,5 mg por va oral mitzi vez al da. Carol es un medicamento para la presin sangunea que puede proteger los riones de las personas con diabetes. 5) Puesto que usted tiene diabetes, tambin necesitar yoan Rosuvastatin 5 mg por va oral mitzi vez por la noche antes de acostarse. 6) Para el cogulo de preethi en la parte posterior de la rodilla derecha, necesitar yoan Eliquis. Vendr en 5 mg por cada tableta. Chidi los primeros 7 hawkins, tendr que yoan 10 mg (es decir, dos pldoras) dos veces al da. Hemos comenzado la medicacin el lunes por la noche, que fue . As que contine tomando 10 mg dos veces al da hasta el prximo lunes por la maana (04/03/17). El prximo lunes por la maana ser la ltima vez que usted debe yoan 10 mg. A partir del lunes por la noche, tome slo 5 mg dos veces al da. 7) Usted tendr que solicitar ms Eliquis para despus de la receta termina. El trabajador social y la gente en la planta baja de la clnica puede ayudarle con carol proceso. 8) Para zuluaga seguridad, utilice el andador que le proporcionamos cuando se mude de casa. 9) Tienen mitzi [facility] en la planta baja del [facility]. Pueden ayudarle con el cuidado de zuluaga herida en la pierna. 10) Si tiene sntomas de emergencia zaira desmayos o dolor en el pecho, por favor regrese a la alize de emergencias. - Date & Time of H&P Date of H&P: 03/30/17 Time of H&P: 10:00 Discharge Exam - Head Exam Head Exam: ATRAUMATIC, NORMAL INSPECTION, NORMOCEPHALIC - Eye Exam Eye Exam: EOMI, PERRL - ENT Exam ENT Exam: Mucous Membranes Moist - Respiratory Exam Respiratory Exam: Clear to PA & Lateral. absent: Rales, Rhonchi, Wheezes - Cardiovascular Exam Cardiovascular Exam: REGULAR RHYTHM, +S1, +S2 - GI/Abdominal Exam GI & Abdominal Exam: Normal Bowel Sounds, Soft. absent: Tenderness - Extremities Exam Additional comments: chronic venous stasis changes bilaterally in the lower extremities Right lateral malleolar wound not actively draining. Right medial malleolar wound has long since closed off and improved. - Neurological Exam Neurological exam: Alert, Oriented x3 - Skin Skin Exam: Dry, Intact, Warm Discharge Plan - Discharge Medications Prescriptions: Apixaban [Eliquis] 10 mg PO BID 30 Days Lisinopril [Zestril] 2.5 mg PO DAILY #30 tab metFORMIN [glucOPHAGE] 500 mg PO BIDBS 30 Days Rosuvastatin Calcium [Crestor] 5 mg PO HS #30 tab - Follow Up Plan Condition: STABLE Disposition: HOME/ ROUTINE Instructions: Ciprofloxacin (By mouth), Lisinopril (By mouth), Metformin (By mouth), Rosuvastatin (By mouth), Apixaban (By mouth), Cellulitis (DC), Diabetes Mellitus Type 2 in Adults (GEN), Meal Planning with Diabetes Exchanges (DC) Additional Instructions: 1) Please follow up with the [facility] in the basement of [facility]. Their number will be provided in your paperwork. Please see them within 1 week of discharge. 2) You will need to take the antibiotic Ciprofloxacin 500 mg by mouth every 12 hours, which means twice daily. One dose in the morning and one in the evening. You will need to take this medication for 3 days. 3) For your diabetes, you will need to take Metformin 500 mg by mouth twice a day. 4) To protect your kidney, you will need to take Lisinopril 2.5 mg by mouth once a day. This is a blood pressure medication which can protect the kidneys in people with diabetes. 5) Since you have diabetes, you will also need to take Rosuvastatin 5 mg by mouth once in the evening before bedtime. 6) For the blood clot in the back of your right knee, you will need to take Eliquis. It will come in 5 mg for each tablet. For the first 7 days, you will need to take 10 mg (meaning two pills) two times a day. We have started the medication on Monday evening which was 03/27/17. So continue taking 10 mg twice a day until next Monday morning (04/03/17). Next Monday morning will be the last time you should take 10 mg. Starting Monday evening, take only 5 mg twice a day. 7) You will need to apply for more Eliquis for after the prescription finishes. The social and political studies professor and the people in the clinic downstairs can assist you with this process. 8) For your safety, please use the walker that we provided when you move around at home. 9) They have a Podiatry Clinic downstairs in the [facility]. They can help you with care for your leg wound. 10) If you have any emergency symptoms such as fainting or chest pain, please return to the emergency room. 1) Por favor, siga con el [facility]. Zuluaga nmero ser proporcionado en zuluaga papeleo. Por favor, verlos dentro de 1 semana de citlaly. 2) Usted tendr que yoan el antibitico Ciprofloxacin 500 mg por va oral cada 12 horas, lo que significa dos veces al da. Mitzi dosis en la maana y otra en la noche. Tendr que yoan carol medicamento chidi 3 hawkins. 3) Para zuluaga diabetes, usted necesitar yoan Metformin 500 mg por va oral dos veces al da. 4) Para proteger zuluaga rin, deber yoan Lisinopril 2,5 mg por va oral mitzi vez al da. Carol es un medicamento para la presin sangunea que puede proteger los riones de las personas con diabetes. 5) Puesto que usted tiene diabetes, tambin necesitar yoan Rosuvastatin 5 mg por va oral mitzi vez por la noche antes de acostarse. 6) Para el cogulo de preethi en la parte posterior de la rodilla derecha, necesitar yoan Eliquis. Vendr en 5 mg por cada tableta. Chidi los primeros 7 hawkins, tendr que yoan 10 mg (es decir, dos pldoras) dos veces al da. Hemos comenzado la medicacin el lunes por la noche, que fue . As que contine tomando 10 mg dos veces al da hasta el prximo lunes por la maana (04/03/17). El prximo lunes por la maana ser la ltima vez que usted debe yoan 10 mg. A partir del lunes por la noche, tome slo 5 mg dos veces al da. 7) Usted tendr que solicitar ms Eliquis para despus de la receta termina. El trabajador social y la gente en la planta baja de la clnica puede ayudarle con carol proceso. 8) Para zuluaga seguridad, utilice el andador que le proporcionamos cuando se mude de casa. 9) Tienen mitzi [facility] en la planta baja del [facility]. Pueden ayudarle con el cuidado de zuluaga herida en la pierna. 10) Si tiene sntomas de emergencia zaira desmayos o dolor en el pecho, por favor regrese a la alize de emergencias. Referrals: [facility] [Outside] <George Mejia - Last Filed: 05/01/17 15:52> Provider - Provider Date of Admission: 03/17/17 18:22 Attending physician: George Mejia MD Hospital Course - Lab Results Lab Results: Micro Results 03/20/17 15:30 Ankle - Right Gram Stain - Final 03/20/17 15:30 Ankle - Right Wound Culture - Final Serratia Marcescens 03/17/17 20:15 Abscess - Leg-Right Gram Stain - Final 03/17/17 20:15 Abscess - Leg-Right Wound Culture - Final Serratia Marcescens 03/17/17 20:15 Skin - Abscess Gram Stain - Final 03/17/17 20:15 Skin - Abscess Wound Culture - Final Serratia Marcescens Most Recent Lab Values WBC 8.0 K/uL (4.8-10.8) 03/30/17 06:51 RBC 4.31 Mil/uL (3.80-5.20) 03/30/17 06:51 Hgb 11.0 g/dL (11.0-16.0) 03/30/17 06:51 Hct 33.2 % (34.0-47.0) L 03/30/17 06:51 MCV 77.1 fL (81.0-99.0) L 03/30/17 06:51 MCH 25.6 pg (27.0-31.0) L 03/30/17 06:51 MCHC 33.2 g/dL (33.0-37.0) 03/30/17 06:51 RDW 14.3 % (11.5-14.5) 03/30/17 06:51 Plt Count 316 K/uL (130-400) 03/30/17 06:51 MPV 8.1 fL (7.2-11.7) 03/30/17 06:51 Neut % (Auto) 57.1 % (50.0-75.0) 03/30/17 06:51 Lymph % (Auto) 31.9 % (20.0-40.0) 03/30/17 06:51 Montague % (Auto) 8.0 % (0.0-10.0) 03/30/17 06:51 Eos % (Auto) 2.5 % (0.0-4.0) 03/30/17 06:51 Baso % (Auto) 0.5 % (0.0-2.0) 03/30/17 06:51 Neut # 4.6 K/uL (1.8-7.0) 03/30/17 06:51 Lymph # 2.6 K/uL (1.0-4.3) 03/30/17 06:51 Montague # 0.6 K/uL (0.0-0.8) 03/30/17 06:51 Eos # 0.2 K/uL (0.0-0.7) 03/30/17 06:51 Baso # 0.0 K/uL (0.0-0.2) 03/30/17 06:51 PT 12.7 SECONDS (9.7-12.2) H 03/27/17 06:16 INR 1.1 03/27/17 06:16 APTT 39 SECONDS (21-34) H 03/27/17 06:16 D-Dimer, Quantitative 265 ng/mlDDU (0-243) H 03/17/17 17:34 Sodium 138 mmol/L (132-148) 03/30/17 06:50 Potassium 4.1 mmol/L (3.6-5.2) 03/30/17 06:50 Chloride 100 mmol/L (98-107) 03/30/17 06:50 Carbon Dioxide 25 mmol/L (22-30) 03/30/17 06:50 Anion Gap 18 (10-20) 03/30/17 06:50 BUN 22 mg/dL (7-17) H 03/30/17 06:50 Creatinine 0.8 MG/DL (0.7-1.2) 03/30/17 06:50 Est GFR ( Amer) > 60 03/30/17 06:50 Est GFR (Non-Af Amer) > 60 03/30/17 06:50 POC Glucose (mg/dL) 142 mg/dL (65-110) H 03/30/17 11:14 Random Glucose 98 mg/dL (65-105) 03/30/17 06:50 Hemoglobin A1c 7.0 % (4.2-6.5) H 03/19/17 08:05 Calcium 9.4 mg/dl (8.6-10.4) 03/30/17 06:50 Phosphorus 4.3 mg/dL (2.5-4.5) 03/20/17 07:00 Magnesium 1.9 mg/dL (1.6-2.3) 03/20/17 07:00 Iron 58 ug/dL (37-170) 03/22/17 07:40 TIBC 319 ug/dL (250-450) 03/22/17 07:40 % Saturation 18 (20-55) L 03/22/17 07:40 Ferritin 80.3 ng/mL 03/22/17 07:40 Total Bilirubin 0.4 mg/dL (0.2-1.3) 03/30/17 06:50 AST 25 U/L (14-36) 03/30/17 06:50 ALT 32 U/L (9-52) 03/30/17 06:50 Alkaline Phosphatase 61 U/L (38-126) 03/30/17 06:50 Total Creatine Kinase 33 U/L (30-135) 03/26/17 10:33 CK-MB (Mass) 0.42 ng/mL (0.0-3.38) 03/26/17 10:33 Troponin I, Quant < 0.0120 ng/mL (0.00-0.120) 03/26/17 10:33 Total Protein 7.4 g/dL (6.3-8.3) 03/30/17 06:50 Albumin 3.6 g/dL (3.5-5.0) 03/30/17 06:50 Globulin 3.9 gm/dL (2.2-3.9) 03/30/17 06:50 Albumin/Globulin Ratio 0.9 (1.0-2.1) L 03/30/17 06:50 Urine Color Colorless (YELLOW) 03/17/17 18:23 Urine Clarity Clear (Clear) 03/17/17 18:23 Urine pH 7.0 (5.0-8.0) 03/17/17 18:23 Ur Specific Poplar 1.001 (1.003-1.030) L 03/17/17 18:23 Urine Protein Negative mg/dL (NEGATIVE) 03/17/17 18:23 Urine Glucose (UA) Normal mg/dL (Normal) 03/17/17 18:23 Urine Ketones Negative mg/dL (NEGATIVE) 03/17/17 18:23 Urine Blood 1+ (NEGATIVE) H 03/17/17 18:23 Urine Nitrate Negative (NEGATIVE) 03/17/17 18:23 Urine Bilirubin Negative (NEGATIVE) 03/17/17 18:23 Urine Urobilinogen Normal mg/dL (0.2-1.0) 03/17/17 18:23 Ur Leukocyte Esterase Neg Toni/uL (Negative) 03/17/17 18:23 Urine WBC (Auto) < 1 /hpf (0-5) 03/17/17 18:23 Urine RBC (Auto) 4 /hpf (0-3) H 03/17/17 18:23 Ur Squamous Epith Cells 1 /hpf (0-5) 03/17/17 18:23 Attending/Attestation - Attestation I have personally seen and examined this patient.: Yes I have fully participated in the care of the patient.: Yes I have reviewed all pertinent clinical information, including history, physical exam and plan: Yes Notes (Text): (1) Cellulitis Status: Acute (2) Newly diagnosed diabetes Status: Acute (3) Deep vein blood clot of right lower extremity Status: Acute (4) Leg swelling Status: Acute (5) Iron (Fe) deficiency anemia Status: Acute
--- NOTE | 2017-04-20 18:51 | CARD ---
APPROVED REPORT EKG Measurement Heart [id number] <Conclusion> Normal sinus rhythm Normal ECG
== END 2017-03-30 14:50 | disposition home or self-care (01) | DRG 300 ==
LOC: C.ER 16:26 → C.9E 18:22 → C.3T 19:30
PROVIDERS: ADMIT Internal Medicine; ATTEND Internal Medicine
DX: I82.431 Acute embolism and thrombosis of right popliteal vein (principal); L03.115 Cellulitis of right lower limb; E11.65 Type 2 diabetes mellitus with hyperglycemia; L97.319 Non-pressure chronic ulcer of right ankle with unspecified severity; E11.628 Type 2 diabetes mellitus with other skin complications; I10 Essential (primary) hypertension; M81.0 Age-related osteoporosis without current pathological fracture; B96.89 Other specified bacterial agents as the cause of diseases classified elsewhere; Z79.4 Long term (current) use of insulin; D50.9 Iron deficiency anemia, unspecified; K59.00 Constipation, unspecified; E11.621 Type 2 diabetes mellitus with foot ulcer

== ENCOUNTER 2017-04-03 20:09 | Emergency (ER) | payer MEDICAID, OTHER ==
[2017-04-03 20:30] VITALS: BP 130/77; PULSE 90; RESP 16; TEMP 97.6; O2SAT 99
--- NOTE | 2017-04-03 21:38 | C.PDOC ---
History Of Present Illness 81 y/o female presents to ED for wound check on right foot. Patient was discharged from the hospital on and was instructed to come back to ED for wound check. Patient denies new injury, discharge, active bleeding, numbness or any other complaints at this time Time Seen by Provider: 04/03/17 21:37 Chief Complaint (Nursing): Abnormal Skin Integrity History Per: Patient History/Exam Limitations: no limitations Onset/Duration Of Symptoms: Days Current Symptoms Are (Timing): Still Present Past Medical History Reviewed: Historical Data, Nursing Documentation, Vital Signs Vital Signs: Last Vital Signs Temp 97.6 F 04/03/17 20:26 Pulse 90 04/03/17 20:26 Resp 16 04/03/17 20:26 BP 130/77 04/03/17 20:26 Pulse Ox 99 04/03/17 23:46 - Medical History PMH: Arthritis (KNEE; B/L HALLUX VALGUS), HTN Family History: States: No Known Family Hx - Social History Hx Alcohol Use: No Hx Substance Use: No Review Of Systems Except As Marked, All Systems Reviewed And Found Negative. Constitutional: Negative for: Fever, Chills Musculoskeletal: Negative for: Leg Pain, Foot Pain Skin: Negative for: Rash Neurological: Negative for: Weakness, Numbness Physical Exam - Physical Exam Appears: Well, Non-toxic, No Acute Distress Skin: Normal Color, Warm, Dry, No Rash Head: Atraumatic, Normacephalic Eye(s): bilateral: Normal Inspection Oral Mucosa: Moist Extremity: Capillary Refill (<2 seconds), No Deformity, No Swelling, Other ( healing wound to above right lateral malleolus, no erythema, no swelling, no drainage) Neurological/Psych: Oriented x3, Normal Speech, Normal Motor, Normal Sensation ED Course And Treatment O2 Sat by Pulse Oximetry: 99 (RA) Pulse Ox Interpretation: Normal Progress Note: Dressing was changed and patient was d/c home with PMD follow up. Disposition - Disposition Disposition: HOME/ ROUTINE Disposition Time: 21:50 Condition: STABLE Additional Instructions: Follow up with PMD as scheduled. Return to ED if feel worse. Prescriptions: Ondansetron ODT [Zofran ODT] 4 mg PO .Q4-6H PRN #20 odt PRN Reason: Nausea/Vomiting Instructions: Chronic Wound Care (ED) Forms: [facility] (Romanian) Print Language: SERBIAN - Clinical Impression Clinical Impression: Visit for wound check - Scribe Statement The provider has reviewed the documentation as recorded by the Scriblima Dawson All medical record entries made by the Jeffibe were at my direction and personally dictated by me. I have reviewed the chart and agree that the record accurately reflects my personal performance of the history, physical exam, medical decision making, and the department course for this patient. I have also personally directed, reviewed, and agree with the discharge instructions and disposition.
== END 2017-04-03 21:58 | disposition home or self-care (01) ==
LOC: C.ER 20:09
DX: Z48.00 Encounter for change or removal of nonsurgical wound dressing (principal)